=== PATIENT | female | born 1945 | race Two or more races ===

== ENCOUNTER 2020-10-21 07:56 | Outpatient (REF) | payer MEDICARE, SELFPAY | END 2020-10-21 07:57 | disposition home or self-care (01) | LOC: HO.LAB 07:56 | PROVIDERS: Visit Provider Internal Medicine | DX: Z20.822 Contact with and (suspected) exposure to COVID-19 (principal) | CPT/HCPCS: 36415; C9803; U0003; U0005 ==

== ENCOUNTER 2020-10-25 11:25 | Emergency (ER) | payer MEDICARE, SELFPAY ==
[2020-10-25 11:29] VITALS: BP 193/97; PULSE 67; RESP 20; TEMP 36.7; O2SAT 99; BMI 30.9
--- NOTE | 2020-10-25 11:30 | ED_ITS ---
HPI - Back Pain/Injury General Chief Complaint: Back Pain/Injury Stated Complaint: RIGHT LOWER BACK PAIN,NO INJURY Time Seen by Provider: 10/25/20 11:30 Source: patient Mode of arrival: EMS Limitations: no limitations History of Present Illness HPI Narrative: History of chronic back pain on Naprosyn, No recent injury. Says the pain started suddenly. Patient denies bowel or bladder MD elicited complaint: back pain Pertinent past history: prior back pain Onset (ago): minute(s) Timing: constant Severity: moderate Quality: sharp Location: lumbar spine Radiation: none Exacerbating factors: none Associated symptoms: denies other symptoms Related Data Previous Rx's Medication Instructions Recorded cyclobenzaprine 10 mg PO TID #10 tab 10/25/20 naproxen [Naprosyn] 500 mg PO BID #20 tab 10/25/20 Allergies Allergy/AdvReac Type Severity Reaction Status Date / Time aspirin [ASPIRIN] Allergy Unknown hives Unverified 04/28/20 15:20 Review of Systems Constitutional: Constitutional: Reports no additional constitutional complaints Eyes: Eyes: Reports no additional eye complaints ENT: Denies dizziness Cardiovascular: Cardiovascular: Reports no additional cardiovascular complaints Respiratory: Respiratory: Reports as per HPI Gastrointestinal: Gastrointestinal: Reports no additional gastrointestinal complaints Genitourinary: Genitourinary: Reports no additional female genitourinary complaints Musculoskeletal: Musculoskeletal: Reports no additional musculoskeletal complaints Integumentary/Breasts: Skin/Breast: Denies rash Neurologic: Reports system reviewed and no additional complaints, except as documented, Denies dizziness and Denies Sensory deficit (Neuro) Psychiatric: Psychiatric: Denies anxiety [facility] Past Medical History Medical History (Updated 10/25/20 @ 14:20 by Danny Mendiola MD) HTN (hypertension) Seizures Social History Social History Smoking Status: Unknown if ever smoked Smoked in Last 30 Days: No Use of substances other than those prescribed or required for medical reasons: No Advance Directives: No Advance Directives Information Provided: No Physical Exam Vital Signs: Vital Signs: Last Vital Signs Temp 98.0 F 10/25/20 11:29 Pulse 67 10/25/20 11:29 Resp 20 10/25/20 11:29 BP 193/97 H 10/25/20 11:29 Pulse Ox 99 10/25/20 11:29 Body Mass Index 30.9 Const: Other: elderly female in pain Nutritional Appearance: average body habitus Orientation/consciousness: oriented to person and patient oriented x3 Limitations: no limitations HENMT: Head: Yes normal to inspection Ears: external ears normal General nose exam: Normal external nose present Mouth: Normal oral and palatal mucosa present and oropharynx normal Throat: Yes posterior oropharynx normal Eyes: General: appearance normal, both eyes and all related structures Neck: Other: supple Neck: Yes normal visual inspection Chest: Chest palpation & inspection: normal inspection of the chest Resp: Auscultation: clear to auscultation bilaterally Cardio: Jugular venous distension: no JVD Rate: regular rate Rhythm: regular rhythm Heart sounds: S1 normal heart sound present and S2 normal heart sound present GI: Inspection: Yes normal to inspection Palpation (GI): Soft to palpation, nontender and No hepatosplenomegaly present Auscultation: normal bowel sounds Back/Spine/Pelvis: Other: right sided SI joint and sciatic notch pain Skin: General skin exam: no rashes or lesions noted Neuro: General: oriented to person and patient oriented x3 Cranial nerves: Yes CN's II-XII intact bilaterally Motor exam (neuro): 5/5 motor strength present throughout Sensory Exam: No Sensory deficit (Neuro) Extrem: General: Yes normal to inspection Psych: Appearance: grossly normal Course Course Course Narrative: Patient mostly improved will dc home on NSAIDs and flexeril Discharge Plan Discharge Clinical Impression: Lumbar radiculopathy Strain of lumbar region Qualifiers: Encounter type: initial encounter Qualified Code(s): S39.012A - Strain of muscle, fascia and tendon of lower back, initial encounter Sciatica Qualifiers: Laterality: left Qualified Code(s): M54.32 - Sciatica, left side Patient Disposition: Home, Self-Care Instructions: Sciatica (ED), Lumbar Radiculopathy (ED) Prescriptions: New cyclobenzaprine 10 mg tablet 10 mg PO TID Qty: 10 RF: 0 naproxen [Naprosyn] 500 mg tablet 500 mg PO BID Qty: 20 RF: 0 Referrals: Physician,Unknown [Primary Care Provider] - 2 days
[2020-10-25] MEDS: Ketorolac Tromethamine 60 MG/2 ML VIAL IM (11:42)
[2020-10-25] MEDS: LORazepam 2 MG/ML VIAL 1 MG IM (11:42)
== END 2020-10-25 14:51 | disposition home or self-care (01) ==
PROVIDERS: Emergency Provider Emergency Medicine
DX: S39.012A Strain of muscle, fascia and tendon of lower back, initial encounter (principal); M54.16 Radiculopathy, lumbar region; M54.32 Sciatica, left side; X58.XXXA Exposure to other specified factors, initial encounter; Y93.9 Activity, unspecified; Y92.9 Unspecified place or not applicable; Y99.9 Unspecified external cause status; Z79.899 Other long term (current) drug therapy
CPT/HCPCS: 96372; 99284; J1885; J2060

== ENCOUNTER 2021-02-22 09:21 | Emergency (ER) | payer MEDICARE, SELFPAY ==
--- NOTE | ~2021-02-22 | XR_ITS ---
EXAMINATION: XR CHEST CLINICAL INFORMATION: Dyspnea COMPARISON: Previous chest x-rays most recent September [address] of the abdomen and pelvis May 2020 TECHNIQUE: Frontal view of the chest was obtained. FINDINGS: The cardiac and mediastinal contours are stable. There is increased soft tissue in the right cardiophrenic angle that is unchanged. When compared with previous abdominal and pelvic CT scan, this corresponds to prominent epicardial fat. The lungs are clear. There is no pleural effusion or pneumothorax. There are degenerative changes of the spine and shoulder joints. There is a sclerotic lesion in the left proximal humeral shaft measuring 7 mm that is stable. XR/XR chest 1V IMPRESSION: No evidence for acute disease in the chest.
--- NOTE | 2021-02-22 09:31 | ECG_ITS ---
Test Reason : CHEST PAIN Blood Pressure : / mmHG Vent. Rate : 073 BPM Atrial Rate : 073 BPM P-R Int : 202 ms QRS Dur : 102 ms QT Int : 396 ms P-R-T Axes : 053 -01 070 degrees QTc Int : 436 ms Normal sinus rhythm Normal ECG When compared with ECG of 08-OCT-2019 12:17, No significant change was found Referred By: Danielle Olmedo Electronically Signed By:Maurizio Giang
--- NOTE | 2021-02-22 09:33 | ED.SOB ---
HPI - SOB/Dyspnea General Chief Complaint: Upper Respiratory Symptoms Stated Complaint: SOB W/CHEST TIGHTNESS Time Seen by Provider: 02/22/21 09:30 Source: patient, EMS and per diem interpreter Mode of arrival: EMS Limitations: no limitations History of Present Illness MD elicited complaint: cough and chest pain Onset (ago): day(s) (yesterday) Timing: constant Severity: moderate Exacerbating factors: movement and coughing Relieving factors: nothing Associated symptoms: chest pain, cough and other (headaches, stuffy nose, myalgias) Treatment prior to arrival: none Related Data Previous Rx's Medication Instructions Recorded cyclobenzaprine 10 mg PO TID #10 tab 10/25/20 naproxen [Naprosyn] 500 mg PO BID #20 tab 10/25/20 albuterol sulfate 2 puff INHALATION QID PRN #6.7 g 02/22/21 cefuroxime axetil 500 mg PO BID 7 Days #14 tab 02/22/21 hydrocodone-homatropine 5 ml PO Q6H PRN #60 ml 02/22/21 ondansetron 4 mg PO Q8H PRN #20 tab 02/22/21 Allergies Allergy/AdvReac Type Severity Reaction Status Date / Time aspirin [ASPIRIN] Allergy Unknown hives Unverified 04/28/20 15:20 Review of Systems Review of Systems: Constitutional : No Weight loss, No Fever, No Chills ENT/Mouth : No sore throat, pos Rhinorrhea Eyes: No Eye Pain, No Swelling Cardiovascular : pos Chest Pain, pos SOB, no Dyspnea on Exertion, No Orthopnea, No Edema, No Palpitations Respiratory : pos Cough, No Sputum Gastrointestinal : no Nausea, No Vomiting, No Diarrhea, No abdominal Pain, No Hematochezia, No Melena Genitourinary : No Dysuria, No Urinary Frequency Musculoskeletal : No joint pain, pos Myalgias, No Joint Swelling Skin : No Skin Lesions, No rash Neuro : No Weakness, No Numbness, No Dizziness, No Headache Psych : No Anxiety/Panic, No Depression Heme/Lymph: No Bruising, No Lymphadenopathy Endocrine : No Polyuria, No Polydipsia All other systems reviewed and are negative PMFSH Past Medical History Attestation statement: The following information was validated with the patient. Medical History HTN (hypertension) Seizures Social History Social History (Updated 02/22/21 @ 09:47 by Danielle Olmedo DO) Patient Tobacco Use Status: Never used Tobacco Use of substances other than those prescribed or required for medical reasons: No Advance Directives: Yes Advance Directives Information Provided: Yes Advance Directives on File: No Physical Exam Vital Signs: Vital Signs: Last Vital Signs Temp 97.7 F 02/22/21 10:48 Pulse 74 02/22/21 13:19 Resp 16 02/22/21 13:19 BP 139/69 02/22/21 13:19 Pulse Ox 95 02/22/21 13:19 Body Mass Index 31.8 Appearance: Alert. Oriented X3. No acute distress. Eyes: Pupils equal, round and reactive to light. ENT: Pharynx normal. Neck: Normal inspection. Neck supple. CVS: Normal heart rate and rhythm. Pulses normal. Respiratory: No respiratory distress. Breath sounds normal. dry persistent cough Abdomen: Soft and nontender. Skin: Skin warm and dry. Normal skin color. Normal skin turgor. Extremities: No lower extremity edema. No calf ttp Neuro: Oriented X 3. No motor deficit. No sensory deficit. Course Course Course Narrative: allergy to aspirin, feels better after anti tussive and neb repeat trop pending, ddimer under upper limits of normal repeat trop flat feels better will treat as bronchitis and DC home MDM - SOB/Dyspnea MDM Narrative Medical decision making narrative: 75 yo female with hx of HTN and seizures here with c/o cough since yesterday then chest pain worse since this AM around 7 made worse with coughing - c/o stuffy nose and overall not feeling well with mild headaches seems viral in nature and atypical for ACS will obtain basic labs, troponin x 2, CXR, give neb and start on robitussin AC dispo per results and findings Lab Data Result diagrams: 02/22/21 10:02 02/22/21 10:02 Labs: Lab Results 02/22/21 02/22/21 02/22/21 Range/Units 10:02 10:02 10:02 WBC 8.5 (4.8-10.8) X10*3/uL RBC 4.86 (4.20-5.50) X10*6/uL Hgb 13.0 (12.0-16.0) g/dl Hct 40.8 (37-47) % MCV 84.0 (80-98) fL MCH 26.7 L (27.0-33.0) pg MCHC 31.9 (31.0-35.0) g/dl RDW 15.3 (11.0-16.0) % Plt Count 270 (160-400) X10*3/uL MPV 9.9 (9.4-12.3) fL Immature Gran % (Auto) 0.2 (0.0-0.4) % Neut % (Auto) 70.5 (45-73) % Lymph % (Auto) 17.2 L (20-40) % [place] % (Auto) 10.9 (2-11) % Eos % (Auto) 0.7 (0-4) % Baso % (Auto) 0.5 (0-2) % Lymph # (Auto) 1.5 (1.2-4.9) X10*3/uL [place] # (Auto) 0.9 (0.1-1.2) X10*3/uL Eos # (Auto) 0.1 (0.0-0.4) X10*3/uL Baso # (Auto) 0.0 (0.0-0.2) X10*3/uL Abs Immat Gran (auto) 0.02 (0.00-0.03) X10*3/uL Absolute Neuts (auto) 6.0 (2.0-8.3) X10*3/uL Absolute Nucleated RBC 0.000 (0.0-0.012) X10*3/uL Nucleated RBC % (auto) 0.0 (0.0-0.2) /100WBC D-Dimer NG/ML Sodium 144 (135-145) mmol/L Potassium 3.9 (3.3-5.1) mmol/L Chloride 104 (96-108) mmol/L Carbon Dioxide 29 (22-29) mmol/L Anion Gap 15 (12-20) BUN 17 H (9-16) mg/dL Creatinine 0.99 (0.5-1.4) mg/dL Estim Creat Clear Calc 49.9 Estimated GFR 54 Random Glucose 95 (60-115) mg/dL Calcium 10.0 (8.4-10.2) mg/dL Magnesium 2.1 (1.6-2.6) mg/dL Total Bilirubin 0.7 (0.0-1.0) mg/dL Direct Bilirubin 0.2 (0.0-0.5) mg/dL AST 18 (5-31) U/L ALT 13 (0-31) U/L Alkaline Phosphatase 76 (39-117) U/L Troponin I High Sens 18.7 H* (<3.5-17.0) ng/L B-Natriuretic Peptide 15 (<100) pg/mL Total Protein 7.4 (6.5-8.0) g/dL Albumin 4.5 (3.5-5.0) g/dL Lipase 21 (8-78) U/L Urine Color Urine Appearance Urine pH (5.0-8.0) Ur Specific [place] (1.005-1.025) Urine Protein (NEG-TRACE) MG/DL Urine Glucose (UA) (NEG) MG/DL Urine Ketones (NEG) MG/DL Urine Blood (NEG) Urine Nitrite (NEG) Ur Leukocyte Esterase (NEG) Urine RBC (0) /HPF Urine WBC (0-4) /HPF Ur Squamous Epith Cells /LPF Amorphous Sediment /LPF Urine Bacteria /LPF COVID-19 (GAGE) (Negative) COVID-19 Clin Com 02/22/21 02/22/21 02/22/21 Range/Units 10:02 10:02 11:26 WBC (4.8-10.8) X10*3/uL RBC (4.20-5.50) X10*6/uL Hgb (12.0-16.0) g/dl Hct (37-47) % MCV (80-98) fL MCH (27.0-33.0) pg MCHC (31.0-35.0) g/dl RDW (11.0-16.0) % Plt Count (160-400) X10*3/uL MPV (9.4-12.3) fL Immature Gran % (Auto) (0.0-0.4) % Neut % (Auto) (45-73) % Lymph % (Auto) (20-40) % [place] % (Auto) (2-11) % Eos % (Auto) (0-4) % Baso % (Auto) (0-2) % Lymph # (Auto) (1.2-4.9) X10*3/uL [place] # (Auto) (0.1-1.2) X10*3/uL Eos # (Auto) (0.0-0.4) X10*3/uL Baso # (Auto) (0.0-0.2) X10*3/uL Abs Immat Gran (auto) (0.00-0.03) X10*3/uL Absolute Neuts (auto) (2.0-8.3) X10*3/uL Absolute Nucleated RBC (0.0-0.012) X10*3/uL Nucleated RBC % (auto) (0.0-0.2) /100WBC D-Dimer 223 NG/ML Sodium (135-145) mmol/L Potassium (3.3-5.1) mmol/L Chloride (96-108) mmol/L Carbon Dioxide (22-29) mmol/L Anion Gap (12-20) BUN (9-16) mg/dL Creatinine (0.5-1.4) mg/dL Estim Creat Clear Calc Estimated GFR Random Glucose (60-115) mg/dL Calcium (8.4-10.2) mg/dL Magnesium (1.6-2.6) mg/dL Total Bilirubin (0.0-1.0) mg/dL Direct Bilirubin (0.0-0.5) mg/dL AST (5-31) U/L ALT (0-31) U/L Alkaline Phosphatase (39-117) U/L Troponin I High Sens (<3.5-17.0) ng/L B-Natriuretic Peptide (<100) pg/mL Total Protein (6.5-8.0) g/dL Albumin (3.5-5.0) g/dL Lipase (8-78) U/L Urine Color YELLOW Urine Appearance HAZY Urine pH 6.5 (5.0-8.0) Ur Specific [place] <= 1.005 (1.005-1.025) Urine Protein NEG (NEG-TRACE) MG/DL Urine Glucose (UA) NEG (NEG) MG/DL Urine Ketones NEG (NEG) MG/DL Urine Blood NEG (NEG) Urine Nitrite POS H (NEG) Ur Leukocyte Esterase 1+ H (NEG) Urine RBC 0 (0) /HPF Urine WBC 1-4 (0-4) /HPF Ur Squamous Epith Cells TRACE /LPF Amorphous Sediment TRACE /LPF Urine Bacteria 3+ /LPF COVID-19 (GAGE) Negative (Negative) COVID-19 Clin Com See Note 02/22/21 Range/Units 12:39 WBC (4.8-10.8) X10*3/uL RBC (4.20-5.50) X10*6/uL Hgb (12.0-16.0) g/dl Hct (37-47) % MCV (80-98) fL MCH (27.0-33.0) pg MCHC (31.0-35.0) g/dl RDW (11.0-16.0) % Plt Count (160-400) X10*3/uL MPV (9.4-12.3) fL Immature Gran % (Auto) (0.0-0.4) % Neut % (Auto) (45-73) % Lymph % (Auto) (20-40) % [place] % (Auto) (2-11) % Eos % (Auto) (0-4) % Baso % (Auto) (0-2) % Lymph # (Auto) (1.2-4.9) X10*3/uL [place] # (Auto) (0.1-1.2) X10*3/uL Eos # (Auto) (0.0-0.4) X10*3/uL Baso # (Auto) (0.0-0.2) X10*3/uL Abs Immat Gran (auto) (0.00-0.03) X10*3/uL Absolute Neuts (auto) (2.0-8.3) X10*3/uL Absolute Nucleated RBC (0.0-0.012) X10*3/uL Nucleated RBC % (auto) (0.0-0.2) /100WBC D-Dimer NG/ML Sodium (135-145) mmol/L Potassium (3.3-5.1) mmol/L Chloride (96-108) mmol/L Carbon Dioxide (22-29) mmol/L Anion Gap (12-20) BUN (9-16) mg/dL Creatinine (0.5-1.4) mg/dL Estim Creat Clear Calc Estimated GFR Random Glucose (60-115) mg/dL Calcium (8.4-10.2) mg/dL Magnesium (1.6-2.6) mg/dL Total Bilirubin (0.0-1.0) mg/dL Direct Bilirubin (0.0-0.5) mg/dL AST (5-31) U/L ALT (0-31) U/L Alkaline Phosphatase (39-117) U/L Troponin I High Sens 11.4 (<3.5-17.0) ng/L B-Natriuretic Peptide (<100) pg/mL Total Protein (6.5-8.0) g/dL Albumin (3.5-5.0) g/dL Lipase (8-78) U/L Urine Color Urine Appearance Urine pH (5.0-8.0) Ur Specific [place] (1.005-1.025) Urine Protein (NEG-TRACE) MG/DL Urine Glucose (UA) (NEG) MG/DL Urine Ketones (NEG) MG/DL Urine Blood (NEG) Urine Nitrite (NEG) Ur Leukocyte Esterase (NEG) Urine RBC (0) /HPF Urine WBC (0-4) /HPF Ur Squamous Epith Cells /LPF Amorphous Sediment /LPF Urine Bacteria /LPF COVID-19 (GAGE) (Negative) COVID-19 Clin Com ECG Data Attestation: I personally reviewed and interpreted this ECG as follows: ECG interpretation date: 02/22/21 ECG interpretation time: 09:57 Interpretation: Rate: 73 Rhythm: NSR with 1st degree AVB [place]: .eft Normal P waves. Normal ANKUR. Normal QRS complex. ST T wave : normal no LALITHA qTC: normal prior studies: no acute ischemia The study has been interpreted contemporaneously by me. . Discharge Plan Discharge Clinical Impression: Acute UTI, Cough Chest pain Qualifiers: Chest pain type: unspecified Qualified Code(s): R07.9 - Chest pain, unspecified Patient Disposition: Home, Self-Care Instructions: Chest Pain (ED), Urinary Tract Infection in Women (ED), Acute Bronchitis (ED) Additional Instructions: return to ED for any worsening symptoms or concerns Prescriptions: New albuterol sulfate 90 mcg/actuation HFA aerosol inhaler 2 puff inhalation QID PRN (Reason: shortness of breath or wheezing) Qty: 6.7 RF: 0 ondansetron 4 mg tablet,disintegrating 4 mg PO Q8H PRN (Reason: nausea and vomiting) Qty: 20 RF: 0 hydrocodone-homatropine 5-1.5 mg/5 mL (5 mL) syrup 5 ml PO Q6H PRN (Reason: cough) Qty: 60 RF: 0 cefuroxime axetil 500 mg tablet 500 mg PO BID 7 Days Qty: 14 RF: 0 No Action cyclobenzaprine 10 mg tablet 10 mg PO TID Qty: 10 RF: 0 naproxen [Naprosyn] 500 mg tablet 500 mg PO BID Qty: 20 RF: 0 Referrals: Mckayla Salazar MD [Primary Care Provider] - 2 days (if not better) Print Language: Togolese
[2021-02-22 09:39] VITALS: BP 170/85; PULSE 77; RESP 18; TEMP 36.6; O2SAT 97; BMI 31.8
[2021-02-22] MEDS: Albuterol Sulfate (0.083%) 2.5 MG/3 ML VIAL.NEB INHALE (09:40)
[2021-02-22 09:53] VITALS: PULSE 81; O2SAT 97
[2021-02-22] MEDS: guaiFEN/Codeine SF 200/20/10ML 10 ML LIQUID 5 ML PO (10:02)
[2021-02-22 10:12] LABS: MANUAL DIFF FLAG NO
[2021-02-22 10:14] LABS: Basophils Percent Auto 0.5 % (0-2); Eosinophils Absolute Auto 0.1 X10*3/uL (0.0-0.4); Eosinophils Percent Auto 0.7 % (0-4); Hematocrit 40.8 % (37-47); Imm Gran Abs Auto 0.02 X10*3/uL (0.00-0.03); Imm Gran Pct Auto 0.2 % (0.0-0.4); Lymphocytes Absolute Auto 1.5 X10*3/uL (1.2-4.9); Lymphocytes Percent Auto 17.2 % (20-40); Mean Corpuscular HGB Conc 31.9 g/dl (31.0-35.0); Mean Corpuscular Hemoglobin 26.7 pg (27.0-33.0); Mean Platelet Volume 9.9 fL (9.4-12.3); Monocytes Absolute Auto 0.9 X10*3/uL (0.1-1.2); Monocytes Percent Auto 10.9 % (2-11); Neutrophils Percent Auto 70.5 % (45-73); Platelet Count 270 X10*3/uL (160-400); Red Blood Count 4.86 X10*6/uL (4.20-5.50); Red Cell Distribution Width 15.3 % (11.0-16.0); White Blood Count 8.5 X10*3/uL (4.8-10.8)
[2021-02-22 10:16] LABS: Glucose Urine UA NEG (NEG); Leukocyte Esterase Urine 1+ (NEG); Nitrite Urine POS (NEG); PH 6.5 (5.0-8.0); Specific Gravity - Urine <= 1.005 (1.005-1.025); Urine Blood NEG (NEG); Urine Ketones NEG (NEG); Urine Protein NEG (NEG-TRACE)
[2021-02-22 10:17] LABS: Appearance Urine HAZY; Color Urine YELLOW
[2021-02-22 10:25] LABS: Bacteria Urine 3+ /LPF; RBC Urine 0 /HPF (0); Squamous Epithelial Cell Urine TRACE /LPF
[2021-02-22 10:26] LABS: Amorphous Sediment Urine TRACE /LPF
[2021-02-22 10:37] LABS: Alanine Aminotransferase 13 U/L (0-31); Albumin Level 4.5 g/dL (3.5-5.0); Alkaline Phosphatase 76 U/L (39-117); Anion Gap 15 (12-20); Aspartate Amino Transferase 18 U/L (5-31); Bilirubin Direct 0.2 mg/dL (0.0-0.5); Bilirubin Total 0.7 mg/dL (0.0-1.0); Blood Urea Nitrogen 17 mg/dL (9-16); COVID-19 Test Negative (Negative); Carbon Dioxide 29 mmol/L (22-29); Chloride 104 mmol/L (96-108); Creatinine Clr Calc Pharmacy 49.9; Estimated Glomerular Filt Rate 54; Glucose Random 95 mg/dL (60-115); IDNOW Serial# 9DD0AD1C; Lipase 21 U/L (8-78); Magnesium 2.1 mg/dL (1.6-2.6); Potassium 3.9 mmol/L (3.3-5.1); Sodium 144 mmol/L (135-145); Total Protein 7.4 g/dL (6.5-8.0)
[2021-02-22 10:46] LABS: B Type Natriuretic Peptide 15 pg/mL (<100); Troponin-I High Sensitivity 18.7 ng/L (<3.5-17.0)
[2021-02-22 10:48] VITALS: BP 136/67; PULSE 85; RESP 15; TEMP 36.5; O2SAT 98
[2021-02-22] MEDS: Acetaminophen 325 MG TABLET 650 MG PO (11:14)
[2021-02-22] MEDS: cefTRIAXone sodium 1 GM in 0.9 % Sodium Chloride 50 ML IV (11:14)
[2021-02-22 11:27] VITALS: BP 125/70; PULSE 75; RESP 16; O2SAT 99
[2021-02-22 11:28] VITALS: O2SAT 97
[2021-02-22 11:46] LABS: D Dimer 223 NG/ML
[2021-02-22 13:19] VITALS: BP 139/69; PULSE 74; RESP 16; O2SAT 95
[2021-02-22 13:35] LABS: Troponin-I High Sensitivity 11.4 ng/L (<3.5-17.0)
== END 2021-02-22 14:51 | disposition home or self-care (01) ==
PROVIDERS: Emergency Provider Emergency Medicine; PCP Student in an Organized Health Care Education/Training Program
DX: R06.02 Shortness of breath (principal); R05 Cough; R51.9 Headache, unspecified; M79.10 Myalgia, unspecified site; Z79.899 Other long term (current) drug therapy; Z20.822 Contact with and (suspected) exposure to COVID-19
CPT/HCPCS: 36415; 71045; 80048; 80076; 81001; 83690; 83735; 83880; 84484; 85025; 85379; 87635; 93005; 94640; 96365; 96375; 99285; J0696

== ENCOUNTER 2021-09-22 13:06 | Emergency (ER) | payer MEDICARE, SELFPAY ==
--- NOTE | ~2021-09-22 | CT_ITS ---
EXAMINATION: CT ABDOMEN AND PELVIS WITHOUT CONTRAST CLINICAL INFORMATION: Abdominal pain COMPARISON: Previous CT of the abdomen and pelvis May 2016 TECHNIQUE: Multidetector volumetric imaging was performed from the superior aspect of the liver through the pubic symphysis. Sagittal and coronal reformatted images were obtained on the technologist's workstation. This CT examination was performed using dose optimization techniques as appropriate, variously including the following: *Automated exposure control *Adjustment of mA and/or kV according to patient size (this includes techniques or standardized protocols for targeted exams where dose is matched to indication/reason for exam; i.e. extremities or head) *Use of iterative reconstruction technique DLP: 6 02 mGy-cm FINDINGS: LUNG BASES: The visualized lung bases are unremarkable. LIVER, GALLBLADDER, AND BILIARY TREE: The liver is normal in size, shape, and attenuation. No focal hepatic lesion or biliary ductal dilatation is present. The gallbladder is unremarkable with no evidence of radiopaque gallstones, gallbladder wall thickening, or obvious pericholecystic inflammatory changes. PANCREAS: Unremarkable. SPLEEN: Unremarkable. ADRENAL GLANDS: Unremarkable. KIDNEYS AND URETERS: There are small nonobstructing stones in the upper pole the left kidney measuring 2 mm. There is a 5 mm fatty lesion in the lower pole the left kidney probably representing a benign angiomyolipoma. There is a 1.5 cm low-attenuation lesion in the upper pole of the right kidney probably representing a cyst. There is fullness of both renal collecting systems. No hydronephrosis is seen. The ureters do not appear dilated. No ureteral stone is seen. BLADDER: Unremarkable. GASTROINTESTINAL TRACT: There is stool throughout the colon suggestive of constipation. Small and large bowel is otherwise unremarkable. The appendix is unremarkable. ABDOMINAL WALL: There is diastasis of the rectus muscles. No hernia is seen. LYMPH NODES: Normal. VASCULAR: There is evidence of atherosclerotic disease. No aneurysm is seen. PELVIC VISCERA: Unremarkable. OSSEOUS STRUCTURES: There is curvature of the lumbar spine to the right. Degenerative changes of the spine and hip joints. CT/CT abdomen pelvis wo con IMPRESSION: Stool throughout the colon suggestive of constipation. Small nonobstructing left renal stones. Right renal cyst. Subcentimeter fatty lesion in the lower pole the left kidney probably representing a benign angiomyolipoma. Fleischner guidelines were followed.
--- NOTE | ~2021-09-22 | CT_ITS ---
EXAMINATION: CT HEAD WITHOUT CONTRAST CLINICAL INFORMATION: Headache and dizziness COMPARISON: Previous head CT most recent September 2019 TECHNIQUE: Contiguous axial imaging was performed from the skull base to vertex without intravenous administration of contrast. This CT examination was performed using dose optimization techniques as appropriate, variously including the following: *Automated exposure control *Adjustment of mA and/or kV according to patient size (this includes techniques or standardized protocols for targeted exams where dose is matched to indication/reason for exam; i.e. extremities or head) *Use of iterative reconstruction technique DLP: 643 mGy-cm FINDINGS: There is no evidence of an extra-axial collection. There is no evidence of intra-axial or extra-axial hemorrhage. The ventricles and extra-axial CSF spaces are appropriate. Rdz-white matter differentiation is normal. There is a 1.3 cm calcified or ossified extra-axial lesion adjacent to the right frontal lobe suggestive of a meningioma that is stable. No other mass, mass effect or infarct is seen. No skull fracture is seen. Visualized paranasal sinuses, mastoid air cells and middle ears are clear. CT/CT head/brain wo con IMPRESSION: No acute findings. 1.3 cm meningioma adjacent to the right frontal lobe similar to previous exams.
--- NOTE | 2021-09-22 13:45 | ECG_ITS ---
Test Reason : DIZZINESS Blood Pressure : / mmHG Vent. Rate : 080 BPM Atrial Rate : 080 BPM P-R Int : 190 ms QRS Dur : 094 ms QT Int : 398 ms P-R-T Axes : 029 -20 049 degrees QTc Int : 459 ms Normal sinus rhythm Inferior infarct , age undetermined Cannot rule out Anterior infarct , age undetermined Abnormal ECG When compared with ECG of 22-FEB-2021 09:39, Inferior infarct is now Present Referred By: Connie Gregorio Electronically Signed By:Maurizio Giang
--- NOTE | 2021-09-22 13:51 | ED_ITS ---
HPI - Dizziness General Chief Complaint: Dizziness <Connie Gregorio MD - Last Filed: 09/22/21 15:20> Stated Complaint: weakness <Connie Gregorio MD - Last Filed: 09/22/21 15:20> Time Seen by Provider: 09/22/21 13:44 <Connie Gregorio MD - Last Filed: 09/22/21 15:20> History of Present Illness HPI Narrative: Patient is 76-year-old female presents today with having dizziness. Feels lightheaded feels weak. Patient denies any focal weakness. Has a history of seizure baseline is on Keppra. No pain on urination. Positive abdominal pain. Mainly over the epigastric area no chest pain no shortness of breath no diaphoresis feels very weak. Not a spinning sensation. No nausea no vomiting. No other changes in medication. Positive generalized malaise. <Connie Gregorio MD - Last Filed: 09/22/21 15:20> Related Data Home Medications: Previous Rx's Medication Instructions Recorded cyclobenzaprine 10 mg tablet 10 mg PO TID #10 tab 10/25/20 naproxen 500 mg tablet (Naprosyn) 500 mg PO BID #20 tab 10/25/20 albuterol sulfate 90 mcg/actuation 2 puff INHALATION QID PRN #6.7 g 02/22/21 aerosol inhaler cefuroxime axetil 500 mg tablet 500 mg PO BID 7 Days #14 tab 02/22/21 hydrocodone-homatropine 5 mg-1.5 5 ml PO Q6H PRN #60 ml 02/22/21 mg/5 mL (5 mL) oral syrup ondansetron 4 mg disintegrating 4 mg PO Q8H PRN #20 tab 02/22/21 tablet cefpodoxime 100 mg tablet 100 mg PO BID #14 tab 09/22/21 <Connie Gregorio MD - Last Filed: 09/22/21 15:20> Allergies/Adverse Reactions: Allergies Allergy/AdvReac Type Severity Reaction Status Date / Time aspirin [ASPIRIN] Allergy Unknown hives Unverified 04/28/20 15:20 <Connie Gregorio MD - Last Filed: 09/22/21 15:20> Review of Systems Review of Systems: Positive weakness generalized malaise Positive lightheaded Positive abdominal pain No nausea no vomiting no diarrhea Normal bowel movement No coughing no congestion or upper respiratory symptoms No chest pain <Connie Gregorio MD - Last Filed: 09/22/21 15:20> Yes all other systems are reviewed and are negative <Connie Gregorio MD - Last Filed: 09/22/21 15:20> [facility] Past Medical History Medical History: Medical History HTN (hypertension) Seizures <Connie Gregorio MD - Last Filed: 09/22/21 15:20> Social History Social History: Social History (Updated 02/22/21 @ 09:47 by Danielle Olmedo DO) Patient Tobacco Use Status: Never used Tobacco Advance Directives: Yes Advance Directives Information Provided: Yes Advance Directives on File: No <Connie Gregorio MD - Last Filed: 09/22/21 15:20> Physical Exam Vital Signs: Vital Signs: Last Vital Signs Temp 97.6 F 09/22/21 15:06 Pulse 84 09/22/21 15:06 Resp 14 09/22/21 15:06 BP 164/79 H 09/22/21 15:06 Pulse Ox 98 09/22/21 15:06 BMI result Body Mass Index 29.1 Appearance: Alert. Oriented X3. No acute distress. Eyes: Pupils equal, round and reactive to light. ENT: Pharynx normal. Neck: Normal inspection. Neck supple. No lymph nodes noted. No crepitus CVS: Normal heart rate and rhythm. Pulses normal. Normal S1 and S2 Respiratory: No respiratory distress. Breath sounds normal. No Wheezing. No rales Abdomen: Soft and nontender. No rigidity. No distention. good BS x4 Skin: Skin warm and dry. Normal skin color. Normal skin turgor. Extremities: No lower extremity edema. Neurovascular intact to all extremities. No Lacerations. No Rash Neuro: Oriented X 3. No motor deficit. No sensory deficit. Moving all extermities. No slurred speech <Connie Gregorio MD - Last Filed: 09/22/21 15:20> Vital Signs: Last Vital Signs Temp 97.6 F 09/22/21 15:06 Pulse 84 09/22/21 15:06 Resp 14 09/22/21 15:06 BP 164/79 H 09/22/21 15:06 Pulse Ox 98 09/22/21 15:06 BMI result Body Mass Index 29.1 <Daniel Macias MD - Last Filed: 09/22/21 18:57> Course Reevaluation(s) Reevaluation #1: UA showed positive for nitrites with 3+ bacteria patient had similar symptoms 03/01 when she had UTI and treated with Ceftin got better likely patient has UTI although patient has no symptoms will discharge patient home on cefpodoxime <Daniel Macias MD - Last Filed: 09/22/21 18:57> Time: 18:56 <Daniel Macias MD - Last Filed: 09/22/21 18:57> MDM - Dizziness MDM Narrative Medical decision making narrative: Patient's EKG showed a sinus pattern heart rate is 80 GA QRS QT within normal limits is no acute ST segment elevation noted. This is unchanged from previous. Her troponin was 25. Will get a 2nd set of cardiac enzyme. CT scan of the head was grossly unchanged. Neurologically grossly intact. Urine showed no signs of infection. <Connie Gregorio MD - Last Filed: 09/22/21 15:20> Patient's EKG showed a sinus pattern heart rate is 80 GA QRS QT within normal limits is no acute ST segment elevation noted. This is unchanged from previous. Her troponin was 25. Will get a 2nd set of cardiac enzyme. CT scan of the head was grossly unchanged. Neurologically grossly intact. Urine showed no signs of infection. <Daniel Macias MD - Last Filed: 09/22/21 18:57> Lab Data Result diagrams: : 09/22/21 14:30 09/22/21 14:30 <Connie Gregorio MD - Last Filed: 09/22/21 15:20> Labs: Lab Results 09/22/21 09/22/21 09/22/21 Range/Units 14:30 14:30 14:30 WBC 9.8 (4.8-10.8) X10*3/uL RBC 4.91 (4.20-5.50) X10*6/uL Hgb 13.1 (12.0-16.0) g/dl Hct 40.5 (37.0-47.0) % MCV 82.5 (80.0-98.0) fL MCH 26.7 L (27.0-33.0) pg MCHC 32.3 (31.0-35.0) g/dl RDW 15.1 (11.0-16.0) % Plt Count 242 (160-400) X10*3/uL MPV 10.2 (9.4-12.3) fL Immature Gran % (Auto) 1.1 H (0.0-0.4) % Neut % (Auto) 85.6 H (45-73) % Lymph % (Auto) 9.1 L (20-40) % [place] % (Auto) 3.7 (2-11) % Eos % (Auto) 0.2 (0-4) % Baso % (Auto) 0.3 (0-2) % Lymph # (Auto) 0.9 L (1.2-4.9) X10*3/uL [place] # (Auto) 0.4 (0.1-1.2) X10*3/uL Eos # (Auto) 0.0 (0.0-0.4) X10*3/uL Baso # (Auto) 0.0 (0.0-0.2) X10*3/uL Abs Immat Gran (auto) 0.11 H (0.00-0.03) X10*3/uL Absolute Neuts (auto) 8.4 H (2.0-8.3) x10*3/uL Absolute Nucleated RBC 0.000 (0.0-0.012) X10*3/uL Nucleated RBC % (auto) 0.0 (0.0-0.2) /100WBC Sodium 144 (135-145) mmol/L Potassium 3.3 (3.3-5.1) mmol/L Chloride 107 (96-108) mmol/L Carbon Dioxide 26 (22-29) mmol/L Anion Gap 14 (12-20) BUN 13 (9-16) mg/dL Creatinine 0.85 (0.5-1.4) mg/dL Estim Creat Clear Calc 52.7 Estimated GFR > 60 Random Glucose 104 (60-115) mg/dL Calcium 9.9 (8.4-10.2) mg/dL Magnesium 2.3 (1.6-2.6) mg/dL Total Bilirubin 0.5 (0.0-1.0) mg/dL Direct Bilirubin 0.2 (0.0-0.5) mg/dL AST 19 (5-31) U/L ALT 8 (0-31) U/L Alkaline Phosphatase 68 (39-117) U/L Troponin I High Sens 25.1 H (<3.5-17.0) ng/L Total Protein 7.6 (6.5-8.0) g/dL Albumin 4.6 (3.5-5.0) g/dL Lipase 29 (8-78) U/L Urine Color Urine Appearance Urine pH (5.0-8.0) Ur Specific [place] (1.005-1.025) Urine Protein (NEG-TRACE) MG/DL Urine Glucose (UA) (NEG) MG/DL Urine Ketones (NEG) MG/DL Urine Blood (NEG) Urine Nitrite (NEG) Ur Leukocyte Esterase (NEG) Urine RBC (0) /HPF Urine WBC (0-4) /HPF Ur Squamous Epith Cells /LPF Urine Bacteria /LPF 09/22/21 09/22/21 Range/Units 14:58 17:46 WBC (4.8-10.8) X10*3/uL RBC (4.20-5.50) X10*6/uL Hgb (12.0-16.0) g/dl Hct (37.0-47.0) % MCV (80.0-98.0) fL MCH (27.0-33.0) pg MCHC (31.0-35.0) g/dl RDW (11.0-16.0) % Plt Count (160-400) X10*3/uL MPV (9.4-12.3) fL Immature Gran % (Auto) (0.0-0.4) % Neut % (Auto) (45-73) % Lymph % (Auto) (20-40) % [place] % (Auto) (2-11) % Eos % (Auto) (0-4) % Baso % (Auto) (0-2) % Lymph # (Auto) (1.2-4.9) X10*3/uL [place] # (Auto) (0.1-1.2) X10*3/uL Eos # (Auto) (0.0-0.4) X10*3/uL Baso # (Auto) (0.0-0.2) X10*3/uL Abs Immat Gran (auto) (0.00-0.03) X10*3/uL Absolute Neuts (auto) (2.0-8.3) x10*3/uL Absolute Nucleated RBC (0.0-0.012) X10*3/uL Nucleated RBC % (auto) (0.0-0.2) /100WBC Sodium (135-145) mmol/L Potassium (3.3-5.1) mmol/L Chloride (96-108) mmol/L Carbon Dioxide (22-29) mmol/L Anion Gap (12-20) BUN (9-16) mg/dL Creatinine (0.5-1.4) mg/dL Estim Creat Clear Calc Estimated GFR Random Glucose (60-115) mg/dL Calcium (8.4-10.2) mg/dL Magnesium (1.6-2.6) mg/dL Total Bilirubin (0.0-1.0) mg/dL Direct Bilirubin (0.0-0.5) mg/dL AST (5-31) U/L ALT (0-31) U/L Alkaline Phosphatase (39-117) U/L Troponin I High Sens 26.5 H (<3.5-17.0) ng/L Total Protein (6.5-8.0) g/dL Albumin (3.5-5.0) g/dL Lipase (8-78) U/L Urine Color YELLOW Urine Appearance HAZY Urine pH 8.0 (5.0-8.0) Ur Specific [place] 1.015 (1.005-1.025) Urine Protein TRACE (NEG-TRACE) MG/DL Urine Glucose (UA) NEG (NEG) MG/DL Urine Ketones NEG (NEG) MG/DL Urine Blood NEG (NEG) Urine Nitrite POS H (NEG) Ur Leukocyte Esterase NEG (NEG) Urine RBC 0 (0) /HPF Urine WBC 0-2 (0-4) /HPF Ur Squamous Epith Cells 1+ /LPF Urine Bacteria 3+ /LPF <Connie Gregorio MD - Last Filed: 09/22/21 15:20> Lab Results 09/22/21 09/22/21 09/22/21 Range/Units 14:30 14:30 14:30 WBC 9.8 (4.8-10.8) X10*3/uL RBC 4.91 (4.20-5.50) X10*6/uL Hgb 13.1 (12.0-16.0) g/dl Hct 40.5 (37.0-47.0) % MCV 82.5 (80.0-98.0) fL MCH 26.7 L (27.0-33.0) pg MCHC 32.3 (31.0-35.0) g/dl RDW 15.1 (11.0-16.0) % Plt Count 242 (160-400) X10*3/uL MPV 10.2 (9.4-12.3) fL Immature Gran % (Auto) 1.1 H (0.0-0.4) % Neut % (Auto) 85.6 H (45-73) % Lymph % (Auto) 9.1 L (20-40) % [place] % (Auto) 3.7 (2-11) % Eos % (Auto) 0.2 (0-4) % Baso % (Auto) 0.3 (0-2) % Lymph # (Auto) 0.9 L (1.2-4.9) X10*3/uL [place] # (Auto) 0.4 (0.1-1.2) X10*3/uL Eos # (Auto) 0.0 (0.0-0.4) X10*3/uL Baso # (Auto) 0.0 (0.0-0.2) X10*3/uL Abs Immat Gran (auto) 0.11 H (0.00-0.03) X10*3/uL Absolute Neuts (auto) 8.4 H (2.0-8.3) x10*3/uL Absolute Nucleated RBC 0.000 (0.0-0.012) X10*3/uL Nucleated RBC % (auto) 0.0 (0.0-0.2) /100WBC Sodium 144 (135-145) mmol/L Potassium 3.3 (3.3-5.1) mmol/L Chloride 107 (96-108) mmol/L Carbon Dioxide 26 (22-29) mmol/L Anion Gap 14 (12-20) BUN 13 (9-16) mg/dL Creatinine 0.85 (0.5-1.4) mg/dL Estim Creat Clear Calc 52.7 Estimated GFR > 60 Random Glucose 104 (60-115) mg/dL Calcium 9.9 (8.4-10.2) mg/dL Magnesium 2.3 (1.6-2.6) mg/dL Total Bilirubin 0.5 (0.0-1.0) mg/dL Direct Bilirubin 0.2 (0.0-0.5) mg/dL AST 19 (5-31) U/L ALT 8 (0-31) U/L Alkaline Phosphatase 68 (39-117) U/L Troponin I High Sens 25.1 H (<3.5-17.0) ng/L Total Protein 7.6 (6.5-8.0) g/dL Albumin 4.6 (3.5-5.0) g/dL Lipase 29 (8-78) U/L Urine Color Urine Appearance Urine pH (5.0-8.0) Ur Specific [place] (1.005-1.025) Urine Protein (NEG-TRACE) MG/DL Urine Glucose (UA) (NEG) MG/DL Urine Ketones (NEG) MG/DL Urine Blood (NEG) Urine Nitrite (NEG) Ur Leukocyte Esterase (NEG) Urine RBC (0) /HPF Urine WBC (0-4) /HPF Ur Squamous Epith Cells /LPF Urine Bacteria /LPF 09/22/21 09/22/21 Range/Units 14:58 17:46 WBC (4.8-10.8) X10*3/uL RBC (4.20-5.50) X10*6/uL Hgb (12.0-16.0) g/dl Hct (37.0-47.0) % MCV (80.0-98.0) fL MCH (27.0-33.0) pg MCHC (31.0-35.0) g/dl RDW (11.0-16.0) % Plt Count (160-400) X10*3/uL MPV (9.4-12.3) fL Immature Gran % (Auto) (0.0-0.4) % Neut % (Auto) (45-73) % Lymph % (Auto) (20-40) % [place] % (Auto) (2-11) % Eos % (Auto) (0-4) % Baso % (Auto) (0-2) % Lymph # (Auto) (1.2-4.9) X10*3/uL [place] # (Auto) (0.1-1.2) X10*3/uL Eos # (Auto) (0.0-0.4) X10*3/uL Baso # (Auto) (0.0-0.2) X10*3/uL Abs Immat Gran (auto) (0.00-0.03) X10*3/uL Absolute Neuts (auto) (2.0-8.3) x10*3/uL Absolute Nucleated RBC (0.0-0.012) X10*3/uL Nucleated RBC % (auto) (0.0-0.2) /100WBC Sodium (135-145) mmol/L Potassium (3.3-5.1) mmol/L Chloride (96-108) mmol/L Carbon Dioxide (22-29) mmol/L Anion Gap (12-20) BUN (9-16) mg/dL Creatinine (0.5-1.4) mg/dL Estim Creat Clear Calc Estimated GFR Random Glucose (60-115) mg/dL Calcium (8.4-10.2) mg/dL Magnesium (1.6-2.6) mg/dL Total Bilirubin (0.0-1.0) mg/dL Direct Bilirubin (0.0-0.5) mg/dL AST (5-31) U/L ALT (0-31) U/L Alkaline Phosphatase (39-117) U/L Troponin I High Sens 26.5 H (<3.5-17.0) ng/L Total Protein (6.5-8.0) g/dL Albumin (3.5-5.0) g/dL Lipase (8-78) U/L Urine Color YELLOW Urine Appearance HAZY Urine pH 8.0 (5.0-8.0) Ur Specific [place] 1.015 (1.005-1.025) Urine Protein TRACE (NEG-TRACE) MG/DL Urine Glucose (UA) NEG (NEG) MG/DL Urine Ketones NEG (NEG) MG/DL Urine Blood NEG (NEG) Urine Nitrite POS H (NEG) Ur Leukocyte Esterase NEG (NEG) Urine RBC 0 (0) /HPF Urine WBC 0-2 (0-4) /HPF Ur Squamous Epith Cells 1+ /LPF Urine Bacteria 3+ /LPF <Daniel Macias MD - Last Filed: 09/22/21 18:57> Discharge Plan Discharge Clinical Impression: UTI (urinary tract infection), Dizziness <Connie Gregorio MD - Last Filed: 09/22/21 15:20> Patient Disposition: Home, Self-Care <Connie Gregorio MD - Last Filed: 09/22/21 15:20> Instructions: Urinary Tract Infection in Women (DC), Dizziness (ED) <Connie Gregorio MD - Last Filed: 09/22/21 15:20> Additional Instructions: You have slight urine tract infection drink plenty of fluids take antibiotic as prescribed report to the ER vomiting fever not feeling good <Connie Gregorio MD - Last Filed: 09/22/21 15:20> Prescriptions: New cefpodoxime 100 mg tablet 100 mg PO BID Qty: 14 0RF Rx Instructions: must administer with a meal/food No Action albuterol sulfate 90 mcg/actuation HFA aerosol inhaler 2 puff inhalation QID PRN (Reason: shortness of breath or wheezing) Qty: 6.7 0RF ondansetron 4 mg tablet,disintegrating 4 mg PO Q8H PRN (Reason: nausea and vomiting) Qty: 20 0RF hydrocodone-homatropine 5-1.5 mg/5 mL (5 mL) syrup 5 ml PO Q6H PRN (Reason: cough) Qty: 60 0RF cefuroxime axetil 500 mg tablet 500 mg PO BID 7 Days Qty: 14 0RF cyclobenzaprine 10 mg tablet 10 mg PO TID Qty: 10 0RF naproxen [Naprosyn] 500 mg tablet 500 mg PO BID Qty: 20 0RF <Connie Gregorio MD - Last Filed: 09/22/21 15:20>
[2021-09-22 13:53] VITALS: BP 151/89; BP 170/80; PULSE 88; PULSE 92; TEMP 36.8; O2SAT 98; O2SAT 99; BMI 29.1
[2021-09-22 14:36] VITALS: BP 158/94; PULSE 82; RESP 18; TEMP 37; O2SAT 95
[2021-09-22 14:37] LABS: MANUAL DIFF FLAG NO
[2021-09-22] MEDS: Meclizine HCl 25 MG TABLET PO (14:41)
[2021-09-22] MEDS: ondansetron HCL 4 MG/2 ML VIAL IVPUSH (14:41)
[2021-09-22 14:42] LABS: Basophils Percent Auto 0.3 % (0-2); Eosinophils Percent Auto 0.2 % (0-4); Hematocrit 40.5 % (37.0-47.0); Hemoglobin 13.1 g/dl (12.0-16.0); Imm Gran Abs Auto 0.11 X10*3/uL (0.00-0.03); Imm Gran Pct Auto 1.1 % (0.0-0.4); Lymphocytes Absolute Auto 0.9 X10*3/uL (1.2-4.9); Lymphocytes Percent Auto 9.1 % (20-40); Mean Corpuscular HGB Conc 32.3 g/dl (31.0-35.0); Mean Corpuscular Hemoglobin 26.7 pg (27.0-33.0); Mean Corpuscular Volume 82.5 fL (80.0-98.0); Mean Platelet Volume 10.2 fL (9.4-12.3); Monocytes Absolute Auto 0.4 X10*3/uL (0.1-1.2); Monocytes Percent Auto 3.7 % (2-11); Neutrophils Absolute Auto 8.4 x10*3/uL (2.0-8.3); Neutrophils Percent Auto 85.6 % (45-73); Platelet Count 242 X10*3/uL (160-400); Red Blood Count 4.91 X10*6/uL (4.20-5.50); Red Cell Distribution Width 15.1 % (11.0-16.0); White Blood Count 9.8 X10*3/uL (4.8-10.8)
[2021-09-22] MEDS: 0.9 % Sodium Chloride 500 ML 999 ML IV (14:42)
[2021-09-22 14:58] LABS: Alanine Aminotransferase 8 U/L (0-31); Albumin Level 4.6 g/dL (3.5-5.0); Alkaline Phosphatase 68 U/L (39-117); Anion Gap 14 (12-20); Aspartate Amino Transferase 19 U/L (5-31); Bilirubin Direct 0.2 mg/dL (0.0-0.5); Bilirubin Total 0.5 mg/dL (0.0-1.0); Blood Urea Nitrogen 13 mg/dL (9-16); Calcium 9.9 mg/dL (8.4-10.2); Carbon Dioxide 26 mmol/L (22-29); Chloride 107 mmol/L (96-108); Creatinine Clr Calc Pharmacy 52.7; Estimated Glomerular Filt Rate > 60; Glucose Random 104 mg/dL (60-115); Lipase 29 U/L (8-78); Magnesium 2.3 mg/dL (1.6-2.6); Potassium 3.3 mmol/L (3.3-5.1); Sodium 144 mmol/L (135-145); Total Protein 7.6 g/dL (6.5-8.0)
[2021-09-22 15:01] LABS: Troponin-I High Sensitivity 25.1 ng/L (<3.5-17.0)
[2021-09-22 15:06] VITALS: BP 164/79; PULSE 84; RESP 14; TEMP 36.4; O2SAT 98
[2021-09-22 15:09] LABS: Appearance Urine HAZY; Color Urine YELLOW; Glucose Urine UA NEG (NEG); Leukocyte Esterase Urine NEG (NEG); Nitrite Urine POS (NEG); Specific Gravity - Urine 1.015 (1.005-1.025); UACC Culture Trigger YES; Urine Blood NEG (NEG); Urine Ketones NEG (NEG); Urine Protein TRACE MG/DL (NEG-TRACE)
[2021-09-22 15:16] LABS: Bacteria Urine 3+ /LPF; Squamous Epithelial Cell Urine 1+ /LPF
[2021-09-22 15:17] LABS: RBC Urine 0 /HPF (0); WBC Urine 0-2 /HPF (0-4)
[2021-09-22] MEDS: 0.9 % Sodium Chloride 1,000 ML 999 ML IV (16:46)
[2021-09-22 18:13] LABS: Troponin-I High Sensitivity 26.5 ng/L (<3.5-17.0)
[2021-09-22 19:07] VITALS: BP 154/70; PULSE 61; RESP 16; TEMP 37; O2SAT 98
== END 2021-09-22 19:21 | disposition home or self-care (01) ==
PROVIDERS: Emergency Provider Emergency Medicine Emergency Medical Services
DX: N39.0 Urinary tract infection, site not specified (principal); R42 Dizziness and giddiness; I10 Essential (primary) hypertension
CPT/HCPCS: 36415; 70450; 74176; 80048; 80076; 81001; 83690; 83735; 84484; 85025; 87086; 87088; 87186; 93005; 96361; 96374; 99284; J2405

== ENCOUNTER 2022-01-14 18:14 | Inpatient (IN) | payer OTHER, SELFPAY ==
--- NOTE | ~2022-01-14 | US_ITS ---
EXAMINATION: US RETROPERITONEAL LIMITED (RENAL ONLY) CLINICAL INFORMATION: Acute kidney insufficiency. COMPARISON: Previous CT of the abdomen and pelvis most recent from yesterday TECHNIQUE: Grayscale and color imaging of the kidneys FINDINGS: RIGHT KIDNEY: 9.6 x 4 x 5 cm (SAG x AP x TRV). The kidney is normal in size, contour, and echogenicity. Renal cortical thickness is normal. There are 3 cysts measuring 1.4 cm in the lateral upper pole, 1.5 x 1.7 cm in the upper to midpole and 1.7 cm in the lateral midpole. No calculi or mass. No hydronephrosis. LEFT KIDNEY: 10 x 5.8 x 5 cm (SAG x AP x TRV). The kidney is normal in size, contour, and echogenicity. Renal cortical thickness is normal. There is a 1 cm echogenic lesion in the lower pole. Compare with previous CT this is consistent with a benign angiomyolipoma. There is a 5 mm echogenic lesion in the medial upper pole also questionable for an angiomyolipoma.. No corresponding abnormality is seen on CT scan. Small left renal stone seen by CT is not appreciated by ultrasound. No hydronephrosis. US/US renal BI IMPRESSION: No hydronephrosis. Right renal cysts. 2 echogenic left renal lesions questionable for angiomyolipomas.
--- NOTE | ~2022-01-14 | XR_ITS ---
EXAMINATION: XR LUMBOSACRAL SPINE CLINICAL INFORMATION: Low back pain COMPARISON: Scoliosis series 06/02/2019, MRI lumbar spine 05/24/2014 TECHNIQUE: Three views of the lumbosacral spine. FINDINGS: Again seen is a scoliosis convex to the right, unchanged when compared to the 06/02/2019 study. Sclerotic changes are present at the SI joints. No fractures are seen. Mild degenerative changes are noted. XR/XR lumbar spine 2-3V IMPRESSION: Scoliosis and degenerative changes unchanged from 2019.
--- NOTE | ~2022-01-14 | CT_ITS ---
EXAMINATION: CT ABDOMEN AND PELVIS WITHOUT CONTRAST CLINICAL INFORMATION: Acute renal failure. COMPARISON: 09/22/2021. TECHNIQUE: Multidetector volumetric imaging was performed from the superior aspect of the liver through the pubic symphysis. Sagittal and coronal reformatted images were obtained on the technologist's workstation. This CT examination was performed using dose optimization techniques as appropriate, variously including the following: *Automated exposure control *Adjustment of mA and/or kV according to patient size (this includes techniques or standardized protocols for targeted exams where dose is matched to indication/reason for exam; i.e. extremities or head) *Use of iterative reconstruction technique DLP: 545 mGy-cm FINDINGS: LUNG BASES: Mild dependent atelectasis. Calcification is evident at the aortic valve. LIVER, GALLBLADDER, AND BILIARY TREE: The liver is normal in size, shape, and attenuation. No focal hepatic lesion or biliary ductal dilatation is present. The gallbladder is unremarkable with no evidence of radiopaque gallstones, gallbladder wall thickening, or obvious pericholecystic inflammatory changes. PANCREAS: Unremarkable. SPLEEN: Unremarkable. ADRENAL GLANDS: Unremarkable. KIDNEYS AND URETERS: The kidneys are normal in size, shape, and attenuation. No hydronephrosis or hydroureter. A punctate 2 mm calculus is present within the left upper pole calyx. No appreciable right-sided renal calculi. There is a small parapelvic cyst in the right kidney. A hypoattenuating cystic structure in the left renal cortex measures 7 mm in diameter and is also too small to characterize. No recommend imaging follow-up. No perinephric stranding. BLADDER: Unremarkable. GASTROINTESTINAL TRACT: The small and large bowel are unremarkable. The appendix is unremarkable. ABDOMINAL WALL: No significant hernia is appreciated. LYMPH NODES: Stomach, small bowel, and colon are normal in caliber. No bowel wall thickening or surrounding inflammatory changes. Appendix is normal. No intraperitoneal free fluid or free air. . Moderate-sized stool ball at the rectum measures 6 cm in diameter. VASCULAR: Atherosclerotic calcifications are present in the abdominal aorta and iliac arteries. No aneurysmal dilatation. PELVIC VISCERA: The uterus and adnexa are unremarkable. OSSEOUS STRUCTURES: Right convex lumbar scoliosis. Grade 1 anterolisthesis of L3 on L4 and L4-L5. Multilevel degenerative disc disease and facet arthropathy. 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 Chronic posttraumatic degeneration of the pubic symphysis. CT/CT abdomen pelvis wo con IMPRESSION: 1. No acute abnormalities identified in the abdomen and pelvis. Punctate left renal calculus. No obstructive uropathy. 2. Moderate-sized stool ball at the rectum. 3. Moderate to severe multilevel degenerative spondylosis in the lumbar spine with right convex scoliosis. Fleischner guidelines were followed.
[2022-01-14 18:25] VITALS: BP 140/80; BP 92/52; PULSE 71; RESP 16; TEMP 36.7; O2SAT 98; BMI 25.4
--- NOTE | 2022-01-14 19:03 | ED_ITS ---
HPI - General Adult General Chief complaint: General Medical Stated complaint: pain all over Time Seen by Provider: 01/14/22 19:03 Source: patient and family Mode of arrival: EMS History of Present Illness HPI narrative: Patient is 76 years old with history of hypertension, dementia, seizure disorder , chronic back pain brought by her daughter for increase back pain and confusion for last few days and not eating much and sleepy most of the time. No odor in the urine no fever no chills no abdominal pain no nausea vomiting. No hematuria or melena Related Data Previous Rx's Medication Instructions Recorded cyclobenzaprine 10 mg tablet 10 mg PO TID #10 tab 10/25/20 naproxen 500 mg tablet (Naprosyn) 500 mg PO BID #20 tab 10/25/20 albuterol sulfate 90 mcg/actuation 2 puff INHALATION QID PRN #6.7 g 02/22/21 aerosol inhaler cefuroxime axetil 500 mg tablet 500 mg PO BID 7 Days #14 tab 02/22/21 hydrocodone-homatropine 5 mg-1.5 5 ml PO Q6H PRN #60 ml 02/22/21 mg/5 mL (5 mL) oral syrup ondansetron 4 mg disintegrating 4 mg PO Q8H PRN #20 tab 02/22/21 tablet cefpodoxime 100 mg tablet 100 mg PO BID #14 tab 09/22/21 Allergies Allergy/AdvReac Type Severity Reaction Status Date / Time aspirin [ASPIRIN] Allergy Unknown hives Verified 01/14/22 18:28 Review of Systems Review of Systems: Yes all other systems are reviewed and are negative PMFSH Past Medical History Medical History Dementia HTN (hypertension) Seizures Social History Social History Alcohol intake: never Patient Tobacco Use Status: Never used Tobacco Use of substances other than those prescribed or required for medical reasons: No Advance Directives: No Advance Directives Information Provided: No Physical Exam ED Vital Signs: Vital Signs - 24 hr 01/14/22 18:25 01/14/22 20:24 01/14/22 21:32 Temperature 98.0 F Pulse Rate 71 79 62 Respiratory Rate 16 14 14 Blood Pressure 92/52 L 100/54 L 101/52 L Pulse Oximetry 98 98 98 BMI result Body Mass Index 25.4 Appearance: Alert. Oriented X2. No acute distress. Eyes: PERRLA, No Nystagmus ENT: Pharynx normal. Oral Mucosa moist Neck: Normal inspection. Neck supple. CVS: Normal heart rate and rhythm. Pulses normal. Respiratory: No respiratory distress. Equal air entry bilateral, no wheezing/rales/rhonchi Abdomen: Soft and nontender. Bowel sounds are present, no mass palpable, no CVA tenderness Back: Diffuse lower lumbar spine tenderness no focal spinal tenderness Skin: Skin warm and dry. Normal skin color. Normal skin turgor. Extremities: No lower extremity edema. No calf tenderness Neuro: Oriented X 2. No motor deficit. No sensory deficit.No cerebellar signs , cranial nerves II-XII intact Medical Decision Making MDM Narrative Medical decision making narrative: Patient with chronic back pain with acute confusion and lethargic etiology not very clear lab workup showed elevated creatinine of 5.92 with BUN of 45 patient had normal creatinine on 10/03 of 0.85 etiology is not very clear CT scan of the abdomen did not show any obstructive uropathy will admit patient for acute renal failure with confusion Lab Data Lab results reviewed: Yes I reviewed the patient's lab results. Result diagrams: 01/14/22 20:22 01/14/22 20:22 Labs: Lab Results 01/14/22 01/14/22 01/14/22 Range/Units 20:22 20:22 20:22 WBC 12.9 H (4.8-10.8) X10*3/uL RBC 4.76 (4.20-5.50) X10*6/uL Hgb 12.5 (12.0-16.0) g/dl Hct 37.9 (37.0-47.0) % MCV 79.6 L (80.0-98.0) fL MCH 26.3 L (27.0-33.0) pg MCHC 33.0 (31.0-35.0) g/dl RDW 16.0 (11.0-16.0) % Plt Count 230 (160-400) X10*3/uL MPV 10.2 (9.4-12.3) fL Immature Gran % (Auto) 0.4 (0.0-0.4) % Neut % (Auto) 71.2 (45-73) % Lymph % (Auto) 18.2 L (20-40) % [place] % (Auto) 9.4 (2-11) % Eos % (Auto) 0.5 (0-4) % Baso % (Auto) 0.3 (0-2) % Lymph # (Auto) 2.3 (1.2-4.9) X10*3/uL [place] # (Auto) 1.2 (0.1-1.2) X10*3/uL Eos # (Auto) 0.1 (0.0-0.4) X10*3/uL Baso # (Auto) 0.0 (0.0-0.2) X10*3/uL Abs Immat Gran (auto) 0.05 H (0.00-0.03) X10*3/uL Absolute Neuts (auto) 9.2 H (2.0-8.3) x10*3/uL Absolute Nucleated RBC 0.000 (0.0-0.012) X10*3/uL Nucleated RBC % (auto) 0.0 (0.0-0.2) /100WBC Sodium (135-145) mmol/L Potassium (3.3-5.1) mmol/L Chloride (96-108) mmol/L Carbon Dioxide (22-29) mmol/L Anion Gap (12-20) BUN (9-16) mg/dL Creatinine (0.5-1.4) mg/dL Estim Creat Clear Calc Estimated GFR Random Glucose (60-115) mg/dL Calcium (8.4-10.2) mg/dL Total Bilirubin (0.0-1.0) mg/dL AST (5-31) U/L ALT (0-31) U/L Alkaline Phosphatase (39-117) U/L Total Protein (6.5-8.0) g/dL Albumin (3.5-5.0) g/dL Urine Color Urine Appearance Urine pH (5.0-8.0) Ur Specific [place] (1.005-1.025) Urine Protein (NEG-TRACE) MG/DL Urine Glucose (UA) (NEG) MG/DL Urine Ketones (NEG) MG/DL Urine Blood (NEG) Urine Nitrite (NEG) Ur Leukocyte Esterase (NEG) Urine RBC (0) /HPF Urine WBC (0-4) /HPF Ur Squamous Epith Cells /LPF Urine Bacteria /LPF Granular Casts /LPF Urine Mucus /LPF COVID-19 (GAGE) Negative (Negative) COVID-19 Clin Com See Note Influenza Type A (MYRTLE) Negative (Negative) Influenza Type B (MYRTLE) Negative (Negative) Influenza A & B Note See Note 01/14/22 01/14/22 Range/Units 20:22 23:47 WBC (4.8-10.8) X10*3/uL RBC (4.20-5.50) X10*6/uL Hgb (12.0-16.0) g/dl Hct (37.0-47.0) % MCV (80.0-98.0) fL MCH (27.0-33.0) pg MCHC (31.0-35.0) g/dl RDW (11.0-16.0) % Plt Count (160-400) X10*3/uL MPV (9.4-12.3) fL Immature Gran % (Auto) (0.0-0.4) % Neut % (Auto) (45-73) % Lymph % (Auto) (20-40) % [place] % (Auto) (2-11) % Eos % (Auto) (0-4) % Baso % (Auto) (0-2) % Lymph # (Auto) (1.2-4.9) X10*3/uL [place] # (Auto) (0.1-1.2) X10*3/uL Eos # (Auto) (0.0-0.4) X10*3/uL Baso # (Auto) (0.0-0.2) X10*3/uL Abs Immat Gran (auto) (0.00-0.03) X10*3/uL Absolute Neuts (auto) (2.0-8.3) x10*3/uL Absolute Nucleated RBC (0.0-0.012) X10*3/uL Nucleated RBC % (auto) (0.0-0.2) /100WBC Sodium 142 (135-145) mmol/L Potassium 3.7 (3.3-5.1) mmol/L Chloride 104 (96-108) mmol/L Carbon Dioxide 24 (22-29) mmol/L Anion Gap 18 (12-20) BUN 45 H D (9-16) mg/dL Creatinine 5.92 H* (0.5-1.4) mg/dL Estim Creat Clear Calc 7.3 Estimated GFR 7 Random Glucose 95 (60-115) mg/dL Calcium 9.9 (8.4-10.2) mg/dL Total Bilirubin 0.4 (0.0-1.0) mg/dL AST 24 (5-31) U/L ALT 15 (0-31) U/L Alkaline Phosphatase 74 (39-117) U/L Total Protein 7.5 (6.5-8.0) g/dL Albumin 4.6 (3.5-5.0) g/dL Urine Color YELLOW Urine Appearance CLEAR Urine pH 6.0 (5.0-8.0) Ur Specific [place] 1.010 (1.005-1.025) Urine Protein 2+ H (NEG-TRACE) MG/DL Urine Glucose (UA) NEG (NEG) MG/DL Urine Ketones NEG (NEG) MG/DL Urine Blood 2+ H (NEG) Urine Nitrite NEG (NEG) Ur Leukocyte Esterase TRACE H (NEG) Urine RBC 1-4 (0) /HPF Urine WBC 5-9 H (0-4) /HPF Ur Squamous Epith Cells 1+ /LPF Urine Bacteria 3+ /LPF Granular Casts 1-4 /LPF Urine Mucus 1+ /LPF COVID-19 (GAGE) (Negative) COVID-19 Clin Com Influenza Type A (MYRTLE) (Negative) Influenza Type B (MYRTLE) (Negative) Influenza A & B Note Discharge Plan Discharge Clinical Impression: Acute renal failure Patient Disposition: Admitted As Inpatient
--- NOTE | 2022-01-14 19:17 | PC.NURSE ---
pt alert and oriented to self and understands that she is in the hospital. pt is a poor historian, hx of dementia. reports fall at home today with possible head strike. daughter reports that pt was doing well today and received a phone call 0 from brother that pt was disoriented and confused from baseline. daughter reports consistently decreased PO intake, strong smelling urine. pt to xray. lang interpreter in room.
[2022-01-14 20:24] VITALS: BP 100/54; PULSE 79; RESP 14; O2SAT 98
[2022-01-14 20:30] LABS: MANUAL DIFF FLAG NO
[2022-01-14 20:33] LABS: Basophils Percent Auto 0.3 % (0-2); Eosinophils Absolute Auto 0.1 X10*3/uL (0.0-0.4); Eosinophils Percent Auto 0.5 % (0-4); Hematocrit 37.9 % (37.0-47.0); Hemoglobin 12.5 g/dl (12.0-16.0); Imm Gran Abs Auto 0.05 X10*3/uL (0.00-0.03); Imm Gran Pct Auto 0.4 % (0.0-0.4); Lymphocytes Absolute Auto 2.3 X10*3/uL (1.2-4.9); Lymphocytes Percent Auto 18.2 % (20-40); Mean Corpuscular Hemoglobin 26.3 pg (27.0-33.0); Mean Corpuscular Volume 79.6 fL (80.0-98.0); Mean Platelet Volume 10.2 fL (9.4-12.3); Monocytes Absolute Auto 1.2 X10*3/uL (0.1-1.2); Monocytes Percent Auto 9.4 % (2-11); Neutrophils Absolute Auto 9.2 x10*3/uL (2.0-8.3); Neutrophils Percent Auto 71.2 % (45-73); Platelet Count 230 X10*3/uL (160-400); Red Blood Count 4.76 X10*6/uL (4.20-5.50); White Blood Count 12.9 X10*3/uL (4.8-10.8)
[2022-01-14 20:54] LABS: COVID-19 Test Negative (Negative); IDNOW Serial# 16C4AD1C
[2022-01-14 20:55] LABS: Influenza A Negative (Negative); Influenza B2 Negative (Negative)
[2022-01-14 21:16] LABS: Alanine Aminotransferase 15 U/L (0-31); Albumin Level 4.6 g/dL (3.5-5.0); Alkaline Phosphatase 74 U/L (39-117); Anion Gap 18 (12-20); Aspartate Amino Transferase 24 U/L (5-31); Bilirubin Total 0.4 mg/dL (0.0-1.0); Blood Urea Nitrogen 45 mg/dL (9-16); Calcium 9.9 mg/dL (8.4-10.2); Carbon Dioxide 24 mmol/L (22-29); Chloride 104 mmol/L (96-108); Creatinine Clr Calc Pharmacy 7.3; Estimated Glomerular Filt Rate 7; Glucose Random 95 mg/dL (60-115); Potassium 3.7 mmol/L (3.3-5.1); Sodium 142 mmol/L (135-145); Total Protein 7.5 g/dL (6.5-8.0)
[2022-01-14 21:32] VITALS: BP 101/52; PULSE 62; RESP 14; O2SAT 98
[2022-01-14] MEDS: 0.9 % Sodium Chloride 1,000 ML 999 ML IV (22:26)
[2022-01-14 23:57] LABS: Appearance Urine CLEAR; Color Urine YELLOW; Glucose Urine UA NEG (NEG); Leukocyte Esterase Urine TRACE (NEG); Nitrite Urine NEG (NEG); UACC Culture Trigger NO; Urine Blood 2+ (NEG); Urine Ketones NEG (NEG); Urine Protein 2+ MG/DL (NEG-TRACE)
[2022-01-15] VITALS (8 sets, daily range): BP systolic 115–144; BP diastolic 58–81; PULSE 60–71; RESP 12–18; TEMP 36.4–36.8; O2SAT 94–99
[2022-01-15 00:06] LABS: Bacteria Urine 3+ /LPF; Mucus Urine 1+ /LPF; Squamous Epithelial Cell Urine 1+ /LPF; UACC CULT YES
--- NOTE | 2022-01-15 00:26 | P.HPHOSP_ITS ---
History of Present Illness Date of Service: 01/15/22 Chief Complaint: increased confusion, weakness Patient is Danish-speaking, and history is obtained with the help of an scrap baler. this is a 76-year-old female with past medical history of hypertension, dementia, seizure disorder, chronic back pain who was brought into the hospital by her daughter for increased confusion, back pain, and low appetite for the past few days. Patient herself denies having any weakness, but does report low oral intake as she does not have appetite. She denies having any abdominal pain nausea or vomiting, no diarrhea constipation, no urinary symptoms. No urinary dysuria urgency or frequency. Patient reports no fever or chills. Denies any chest pain shortness of breath. No cough. On arrival to the ED patient hemodynamically stable with no significant abnormal vitals Labs are significant for WBC count of 12 and 9, BUN of 45, creatinine of 5.9 today with a baseline of 13 and 0.85 respectively UA positive for leukocyte Estrace as well as WBC abdomen pelvic CT showed no acute abnormalities, no obstructive uropathy, moderate-sized stool ball at the rectum, patient will be admitted for further management Review of Systems Review of Systems: Yes all other systems are reviewed and are negative [facility] Medical History (Updated 01/15/22 @ 06:09 by Carlitos Meza MD) Dementia HTN (hypertension) Seizures Family History (Updated 01/15/22 @ 06:09 by Carlitos Meza MD) Other No family history of coronary artery disease Surgical History (Updated 01/15/22 @ 06:09 by Carlitos Meza MD) H/O tubal ligation Social History Alcohol intake: never Patient Tobacco Use Status: Never used Tobacco Use of substances other than those prescribed or required for medical reasons: No Advance Directives: No Advance Directives Information Provided: No Meds Allergies Allergy/AdvReac Type Severity Reaction Status Date / Time aspirin [ASPIRIN] Allergy Unknown hives Verified 01/14/22 18:28 Physical Exam 2 Vital Signs and Narrative: Vital Signs: Last Vital Signs Temp 98.0 F 01/14/22 18:25 Pulse 62 01/14/22 21:32 Resp 14 01/14/22 21:32 BP 101/52 L 01/14/22 21:32 Pulse Ox 98 01/14/22 21:32 BMI result Body Mass Index 25.4 Const: General: cooperative and no acute distress Orientation/consciousness: patient oriented x3 Eyes: General: appearance normal, both eyes and all related structures Pupils: Equal, round and reactive pupils present Resp: Effort & Inspection: normal respiratory effort Auscultation: clear to auscultation bilaterally Cardio: Rate: regular rate Rhythm: regular rhythm GI: Palpation (GI): Soft to palpation Auscultation: normal bowel sounds : Other: no CVA tenderness Skin: General skin exam: no rashes or lesions noted Neuro: General: patient oriented x3 Cranial nerves: Yes Equal, round and reactive pupils present Cognition (Neuro): normal cognition Extrem: General: Yes normal to inspection and Yes no pedal edema Results Labs CBC and Chem 7: 01/14/22 20:22 01/14/22 20:22 Labs: Laboratory Results - last 24 hr 01/14/22 01/14/22 01/14/22 20:22 20:22 20:22 MCV 79.6 L MCH 26.3 L MCHC 33.0 RDW 16.0 Plt Count 230 MPV 10.2 Immature Gran % (Auto) 0.4 Neut % (Auto) 71.2 Lymph % (Auto) 18.2 L [place] % (Auto) 9.4 Eos % (Auto) 0.5 Baso % (Auto) 0.3 Lymph # (Auto) 2.3 [place] # (Auto) 1.2 Eos # (Auto) 0.1 Baso # (Auto) 0.0 Abs Immat Gran (auto) 0.05 H Absolute Neuts (auto) 9.2 H Absolute Nucleated RBC 0.000 Nucleated RBC % (auto) 0.0 Anion Gap Estim Creat Clear Calc Estimated GFR Random Glucose Calcium Total Bilirubin AST ALT Alkaline Phosphatase Total Protein Albumin Urine Color Urine Appearance Urine pH Ur Specific [place] Urine Protein Urine Glucose (UA) Urine Ketones Urine Blood Urine Nitrite Ur Leukocyte Esterase Urine RBC Urine WBC Ur Squamous Epith Cells Urine Bacteria Granular Casts Urine Mucus COVID-19 (GAGE) Negative COVID-19 Clin Com See Note Influenza Type A (MYRTLE) Negative Influenza Type B (MYRTLE) Negative Influenza A & B Note See Note 01/14/22 01/14/22 20:22 23:47 MCV MCH MCHC RDW Plt Count MPV Immature Gran % (Auto) Neut % (Auto) Lymph % (Auto) [place] % (Auto) Eos % (Auto) Baso % (Auto) Lymph # (Auto) [place] # (Auto) Eos # (Auto) Baso # (Auto) Abs Immat Gran (auto) Absolute Neuts (auto) Absolute Nucleated RBC Nucleated RBC % (auto) Anion Gap 18 Estim Creat Clear Calc 7.3 Estimated GFR 7 Random Glucose 95 Calcium 9.9 Total Bilirubin 0.4 AST 24 ALT 15 Alkaline Phosphatase 74 Total Protein 7.5 Albumin 4.6 Urine Color YELLOW Urine Appearance CLEAR Urine pH 6.0 Ur Specific [place] 1.010 Urine Protein 2+ H Urine Glucose (UA) NEG Urine Ketones NEG Urine Blood 2+ H Urine Nitrite NEG Ur Leukocyte Esterase TRACE H Urine RBC 1-4 Urine WBC 5-9 H Ur Squamous Epith Cells 1+ Urine Bacteria 3+ Granular Casts 1-4 Urine Mucus 1+ COVID-19 (GAGE) COVID-19 Clin Com Influenza Type A (MYRTLE) Influenza Type B (MYRTLE) Influenza A & B Note Imaging Radiologist's Impressions: Impressions Lumbar Spine X-Ray 01/14/22 19:25 IMPRESSION: Scoliosis and degenerative changes unchanged from 2019. Abdomen/Pelvis CT 01/14/22 22:35 IMPRESSION: 1. No acute abnormalities identified in the abdomen and pelvis. Punctate left renal calculus. No obstructive uropathy. 2. Moderate-sized stool ball at the rectum. 3. Moderate to severe multilevel degenerative spondylosis in the lumbar spine with right convex scoliosis. Fleischner guidelines were followed. Assessment and Plan (1) Acute renal failure: Status: Acute (2) UTI (urinary tract infection): Status: Acute Plan 76-year-old female with past medical history of hypertension, seizure, as well as dementia presents to the hospital with complaints of increased confusion found to have SUNDAY is low UTI # SUNDAY - likely prerenal secondary to dehydration as well as acute infection, no obstructing stone identified - patient will be started on IV fluids - follow BMP - avoid nephrotoxins # UTI - positive UA, has leukocytosis, afebrile - will treat with IV antibiotics - follow cultures DVT prophylaxis: Heparin subQ Quality Stroke Does the patient have a stroke diagnosis?: No VTE Prior VTE?: No VTE Risk Level:: Medical - moderate - high VTE Device Contraindication: Treatment Not Indicated VTE Drug Contraindication: N/A - Med Ordered
[2022-01-15] MEDS: Lactated Ringers 1,000 ML 100 ML IVCONT ×3 (01:58→17:36)
[2022-01-15] MEDS: Acetaminophen 325 MG TABLET 650 MG PO (02:01)
--- NOTE | 2022-01-15 02:01 | PC.NURSE ---
Pt c/o GARCIA Pt medicated per MAR Will continue to monitor
--- NOTE | 2022-01-15 04:38 | PC.NURSE ---
RECEIVED FROM MAIN ER TO BED 7 OVERFLOW..ALERT....CONVERSES..LYNN AND REPOSITIONS SELF..RESPIRATIONS EASY ON ROOM AIR...LR 100 CC/HR..DENIES DISCOMFORT..DOZING W/O DIFFICULTY AFTER TRANSFER
[2022-01-15 08:08] LABS: MANUAL DIFF FLAG NO
--- NOTE | 2022-01-15 08:09 | HO.PM.IMPN ---
Subjective Subjective Date of Service: 01/15/22 Interval History: sunday/uti Review of Systems Patient mental status has baseline as per the daughter at the bedside. Patient denies any chest pain or shortness of breath or abdominal pain or nausea or vomiting or fever she, she says that she has decreased appetite and almost 1 and half week ago she went to her PCP where he she was told her kidney function is low- subsequently was try to encourage for p.o. uptake and hydration which was still not enough as per the daughter. Physical Exam Vital Signs: Vital Signs: Last Vital Signs Temp 97.9 F 01/15/22 03:25 Pulse 60 01/15/22 07:12 Resp 14 01/15/22 07:12 BP 116/65 01/15/22 07:12 Pulse Ox 97 01/15/22 07:12 BMI result Body Mass Index 25.4 Appearance: Alert.? Oriented X3.? not in distress.?. cvs: rrr, [id number] , no murmur res: clear to auscultation ,no rhonchii or wheezing abd: no rebound or guarding ,nt, bs present. ext pulses present , no cyanosis ,Gait well balanced well coordinated. neuro: axo3 , nonfocal. Objective Data Active Medications Acetaminophen (Acetaminophen 325 Mg Tablet) 650 mg PO Q6H PRN PRN Reason: Pain, Mild (Pain Scale 1-3) Last Admin: 01/15/22 02:01 Dose: 650 mg Documented by: PATRICIA Docusate Sodium (Docusate Sodium 100 Mg Capsule) 100 mg PO DAILY PRN PRN Reason: Constipation Heparin Sodium (Porcine) (Heparin Sodium,Porcine 5,000 Unit/Ml Vial) 5,000 unit SUBCUT Q12H [facility] Last Admin: 01/15/22 07:41 Dose: Not Given Documented by: BHASKAR Non-Admin Reason: Patient Refused Lactated Ringer's (Lr) 1,000 mls @ 100 mls/hr IVCONT .Q10H [facility] Last Admin: 01/15/22 01:58 Dose: 100 mls/hr Documented by: JANNY Ondansetron HCl (Ondansetron Hcl 4 Mg/2 Ml Vial) 4 mg IVPUSH Q8H PRN PRN Reason: Nausea and Vomiting Pharmacy Consult (Consult Rx Perform Med Rec) 1 each MISCELLANE ONCE PRN PRN Reason: Consult order Polyethylene Glycol (Polyethylene Glycol 3350 17 Gm Powd.Pack) 17 gm PO DAILY [facility] Last Admin: 01/15/22 07:41 Dose: Not Given Documented by: BHASKAR Non-Admin Reason: Patient Refused Labs CBC & Chem 7: 01/15/22 07:30 01/15/22 07:30 Labs: Laboratory Results - last 24 hr 01/14/22 01/14/22 01/14/22 20:22 20:22 20:22 MCV 79.6 L MCH 26.3 L MCHC 33.0 RDW 16.0 Plt Count 230 MPV 10.2 Immature Gran % (Auto) 0.4 Neut % (Auto) 71.2 Lymph % (Auto) 18.2 L [place] % (Auto) 9.4 Eos % (Auto) 0.5 Baso % (Auto) 0.3 Lymph # (Auto) 2.3 [place] # (Auto) 1.2 Eos # (Auto) 0.1 Baso # (Auto) 0.0 Abs Immat Gran (auto) 0.05 H Absolute Neuts (auto) 9.2 H Absolute Nucleated RBC 0.000 Nucleated RBC % (auto) 0.0 Anion Gap Estim Creat Clear Calc Estimated GFR Random Glucose Calcium Total Bilirubin AST ALT Alkaline Phosphatase Total Protein Albumin Urine Color Urine Appearance Urine pH Ur Specific [place] Urine Protein Urine Glucose (UA) Urine Ketones Urine Blood Urine Nitrite Ur Leukocyte Esterase Urine RBC Urine WBC Ur Squamous Epith Cells Urine Bacteria Granular Casts Urine Mucus COVID-19 (GAGE) Negative COVID-19 Clin Com See Note Influenza Type A (MYRTLE) Negative Influenza Type B (MYRTLE) Negative Influenza A & B Note See Note 01/14/22 01/14/22 20:22 23:47 MCV MCH MCHC RDW Plt Count MPV Immature Gran % (Auto) Neut % (Auto) Lymph % (Auto) [place] % (Auto) Eos % (Auto) Baso % (Auto) Lymph # (Auto) [place] # (Auto) Eos # (Auto) Baso # (Auto) Abs Immat Gran (auto) Absolute Neuts (auto) Absolute Nucleated RBC Nucleated RBC % (auto) Anion Gap 18 Estim Creat Clear Calc 7.3 Estimated GFR 7 Random Glucose 95 Calcium 9.9 Total Bilirubin 0.4 AST 24 ALT 15 Alkaline Phosphatase 74 Total Protein 7.5 Albumin 4.6 Urine Color YELLOW Urine Appearance CLEAR Urine pH 6.0 Ur Specific [place] 1.010 Urine Protein 2+ H Urine Glucose (UA) NEG Urine Ketones NEG Urine Blood 2+ H Urine Nitrite NEG Ur Leukocyte Esterase TRACE H Urine RBC 1-4 Urine WBC 5-9 H Ur Squamous Epith Cells 1+ Urine Bacteria 3+ Granular Casts 1-4 Urine Mucus 1+ COVID-19 (GAGE) COVID-19 Clin Com Influenza Type A (MYRTLE) Influenza Type B (MYRTLE) Influenza A & B Note Assessment and Plan (1) UTI (urinary tract infection): Status: Acute (2) Acute renal failure: Status: Acute Plan 76-year-old female with past medical history of hypertension, seizure, as well as dementia presents to the hospital with complaints of increased confusion found to have SUNDAY is low UTI 1. SUNDAY on my examination patient does not seem to have encephalopathy- Mental status at baseline,confirmed with the daughter at bedside. -? likely prerenal secondary to dehydration as well as acute infection, no obstructing stone identified -? patient will be started on IV fluids -? follow BMP -? avoid nephrotoxins patient was strongly encouraged for p.o. intake and hydration. Nephro evaluation 2. ? UTI -? positive UA, has leukocytosis, afebrile -? will treat with IV antibiotics -? follow cultures ?DVT prophylaxis:? Heparin subQ Quality Stroke Does the patient have a stroke diagnosis?: No VTE Prior VTE?: No VTE Risk Level:: Medical - moderate - high VTE Device Contraindication: Treatment Not Indicated VTE Drug Contraindication: N/A - Med Ordered
[2022-01-15 08:12] LABS: Basophils Percent Auto 0.5 % (0-2); Eosinophils Absolute Auto 0.1 X10*3/uL (0.0-0.4); Eosinophils Percent Auto 0.8 % (0-4); Hemoglobin 12.1 g/dl (12.0-16.0); Imm Gran Abs Auto 0.03 X10*3/uL (0.00-0.03); Imm Gran Pct Auto 0.3 % (0.0-0.4); Lymphocytes Absolute Auto 1.6 X10*3/uL (1.2-4.9); Lymphocytes Percent Auto 17.8 % (20-40); Mean Corpuscular HGB Conc 32.7 g/dl (31.0-35.0); Mean Corpuscular Hemoglobin 26.3 pg (27.0-33.0); Mean Corpuscular Volume 80.4 fL (80.0-98.0); Mean Platelet Volume 10.7 fL (9.4-12.3); Monocytes Percent Auto 11.2 % (2-11); Neutrophils Absolute Auto 6.1 x10*3/uL (2.0-8.3); Neutrophils Percent Auto 69.4 % (45-73); Platelet Count 235 X10*3/uL (160-400); White Blood Count 8.8 X10*3/uL (4.8-10.8)
[2022-01-15 08:29] LABS: Anion Gap 15 (12-20); Blood Urea Nitrogen 41 mg/dL (9-16); Calcium 9.3 mg/dL (8.4-10.2); Carbon Dioxide 23 mmol/L (22-29); Chloride 109 mmol/L (96-108); Creatinine Clr Calc Pharmacy 8.5; Estimated Glomerular Filt Rate 8; Glucose Random 87 mg/dL (60-115); Potassium 3.3 mmol/L (3.3-5.1); Sodium 144 mmol/L (135-145)
--- NOTE | 2022-01-15 08:37 | PHA.MEDREC ---
Pharmacy Consult ? Medication Reconciliation Pharmacy has completed the medication reconciliation. Confirmed medications with patient's daughter Andra. She reports patient still takes hydrochlorothiazide last filled 2020. She is unsure if patient take donezepil however it was recently filled in November for a 90 day supply. Daphne Kc, ReidD
[2022-01-15] MEDS: levETIRAcetam 250 MG TABLET 750 MG PO ×2 (10:21→20:42)
--- NOTE | 2022-01-15 10:38 | PC.NURSE ---
hospitalist at bedside as well as one family memeber. card cutter helper at bedside as well. aware of plan of care and denied having any questions at this time.
--- NOTE | 2022-01-15 12:37 | MHC.CM.PN ---
PT RE[POTS SHE LIVES ALONE BUT HER DAUGHTER WHO IS ALSO HER ELECTROSTATIC PAINTER, COMES TO HER HOME DAILY SHE REPORTS SHE HAS NO OTHER SERVICES EXCEPT FOR A [facility] RN CM PT REPORTS SHE IS VACCINATED AGAINST COVID-19 WITH MODERNA X 2 SHE CONFIRMS HER PCP IS EROS SONI AND SHE HAS A HCP ON FILE IMM DELIVERED, COPY SENT TO [facility] CURRENT DC IS HOME WITH RESUMPTION OF ELECTROSTATIC PAINTER SERVICES FAMILY TO TRANSPORT
--- NOTE | 2022-01-15 12:39 | P.CDIC_ITS ---
CDI Concurrent Query Documentation Clarification: PHYSICIAN'S DOCUMENTATION REQUEST Date of Query: 01/15/22 1240 Patient Name: Silke Celeste Admit Date: 01/15/22 Dear Doctor, A review of the medical record indicates additional documentation may be needed. Please review below and update the documentation accordingly. Clinical Indicators: Risk Factors/Clinical Indicators/Treatments per ED note: acute confusion and lethargic PMH: Dementia Based on the above, could you clarify in the Progress Notes which, if any of the following, is the most likely etiology of the confusion/altered mental status? * Encephalopathy - indicate type such as metabolic, toxic, septic, alcoholic, hypertensive, etc. * Dementia - indicate type of dementia, such as Alzheimer's, senile, vascular, Lewy body, etc. * Acute delirium - indicate known or suspected etiology, such as postoperative, due to narcotics or other drugs, etc. * Baseline dementia - indicate type, such as Alzheimer's, senile, vascular, Lewy body, etc., and any associated behavioral disturbances (aggressive, combative, or violent behavior) * Acute or subacute confusional state due to (specify known or suspected etiology) * Other etiology (please specify) * Unable to determine Use of terms such as suspected, likely, concern for, or probable (associated with a specific diagnosis that is being evaluated, monitored, or treated as if it exists) are acceptable and can be coded in the inpatient setting, when documented at the time of discharge. Thank you, Juliana Kinsey RN Extension: [phone] Please use your independent medical judgment in providing your response. THIS QUERY IS PART OF THE PERMANENT MEDICAL RECORD Provider Response: Other Other Diagnosis: no encephalopathy.
--- NOTE | 2022-01-15 16:54 | PC.NURSE ---
report given to [place]
[2022-01-15] MEDS: Heparin Sodium,Porcine 5,000 UNIT/ML VIAL 5000 UNIT SUBCUT (20:42)
--- NOTE | 2022-01-15 21:56 | CONS_ITS ---
DATE OF SERVICE: REASON FOR CONSULTATION: I was called to see this patient to assist in the management of acute kidney injury. HISTORY OF PRESENT ILLNESS: To summarize, Silke is a pleasant 76-year-old woman with history of hypertension, dementia, and has no significant chronic kidney disease. Her baseline creatinine was 0.8 mg/dL back in September 2021. She comes in because of increased confusion, back pain, and lack of appetite. Her oral intake has been poor as well and at time of admission, she had a creatinine of more than 5. She was on IV hydration with some minimal improvement in the creatinine and hence this consultation. CT scan did not show any obstruction. Urinalysis has shown some blood and protein by dipstick. ONGOING MEDICAL PROBLEMS: Include history of hypertension, dementia, and seizures. REVIEW OF SYSTEMS: She had decrease in appetite and had back pain. No nausea, vomiting. No diarrhea, constipation. No polyuria, polydipsia. No joint pain. No fever. No rash. No weight loss. FAMILY HISTORY: Not contributory to this admission. SURGICAL HISTORY: Includes tubal ligation. SOCIAL HISTORY: No history of smoking or alcohol abuse. ALLERGIES: ASPIRIN. HOME MEDICATIONS: Reviewed. It is unclear if she has been taking any NSAIDs for the back pain. PHYSICAL EXAMINATION: GENERAL: Today, Silke appears comfortable, alert and awake, not able to answer simple questions. HEENT: Mucosa dry. NECK: Supple. No JVD. LUNGS: Air entry equal. HEART: S1, S2 heard. No gallop or rub. ABDOMEN: Soft, nontender. Bowel sounds heard. NEURO: Alert and awake. No asterixis. EXTREMITIES: No edema. No rash. No clubbing. No joint pain. No joint tenderness or swelling. VITAL SIGNS: Blood pressure 120/76, pulse 62. LABORATORY DATA: Sodium 145, potassium 3.3, BUN 14, creatinine 5.13. Urinalysis showed 2+ protein, 2+ blood by dipstick, only 1 to 4 rbc's. Hemoglobin 12.1, platelets 235, WBC 8.8. CPK was 181. Troponin not available. IMPRESSION: A 76-year-old woman with essential normal renal function at baseline. Currently has acute kidney injury. The different diagnosis of acute kidney injury would include acute tubular necrosis. However, with the urinary findings, underlying glomerulonephritis should be ruled out. No evidence of obstruction. RECOMMENDATIONS: Include check urine for protein creatinine ratio. Check serum complement, ANCA, , SPEP, UPEP, VICTOR MANUEL, hepatitis profile. Continue IV hydration. Keep intake more than the output. Keep on a low-potassium diet. Watch intake and output. Follow serum creatinine closely. At present, there is no absolute indication for dialysis. Further workup will be based on the outcome of the baseline investigations. We will follow her closely with the team. Xavi Portillo MD BPA/MODL / [phone]
[2022-01-16 03:04] VITALS: BP 162/80; PULSE 71; RESP 15; TEMP 37; O2SAT 97
[2022-01-16] MEDS: Lactated Ringers 1,000 ML 100 ML IVCONT (06:19)
[2022-01-16] MEDS: Levothyroxine Sodium 100 MCG TABLET PO (06:20)
[2022-01-16 06:28] LABS: Anion Gap 14 (12-20); Blood Urea Nitrogen 37 mg/dL (9-16); Calcium 9.2 mg/dL (8.4-10.2); Carbon Dioxide 24 mmol/L (22-29); Chloride 109 mmol/L (96-108); Creatinine Clr Calc Pharmacy 10.9; Estimated Glomerular Filt Rate 11; Glucose Random 91 mg/dL (60-115); Potassium 3.1 mmol/L (3.3-5.1); Sodium 144 mmol/L (135-145)
[2022-01-16 07:12] VITALS: BP 119/58; PULSE 71; RESP 18; TEMP 36.7; O2SAT 98
[2022-01-16 09:16] LABS: Creatinine Urine 71.74 mg/dL; Microalbum/Creatinine Ratio Ur 231.3 ug/mg cr
[2022-01-16] MEDS: levETIRAcetam 250 MG TABLET 750 MG PO ×2 (10:26→20:20)
[2022-01-16] MEDS: Heparin Sodium,Porcine 5,000 UNIT/ML VIAL 5000 UNIT SUBCUT ×2 (10:26→20:20)
[2022-01-16] MEDS: polyethylene glycoL 3350 17 GM POWD.PACK PO (10:27)
--- NOTE | 2022-01-16 10:28 | P.PNNP_ITS ---
Subjective Subjective Date of Service: 01/16/22 Interval history: Events noted Daughter at bedside PO intake has been poor Physical Exam 2 Vital Signs: Vital Signs: Last Vital Signs Temp 98.1 F 01/16/22 07:12 Pulse 71 01/16/22 07:12 Resp 18 01/16/22 07:12 BP 119/58 L 01/16/22 07:12 Pulse Ox 98 01/16/22 07:12 BMI result Body Mass Index 25.4 Const: General: cooperative and no acute distress Orientation/consciousness: patient oriented x3 Eyes: General: appearance normal, both eyes and all related structures Resp: Effort & Inspection: normal respiratory effort Auscultation: clear to auscultation bilaterally Cardio: Rate: regular rate Rhythm: regular rhythm GI: Palpation (GI): Soft to palpation Auscultation: normal bowel sounds Skin: General skin exam: no rashes or lesions noted Neuro: General: patient oriented x3 Extrem: General: Yes normal to inspection and Yes no pedal edema Objective Data Labs CBC & Chem 7: 01/15/22 07:30 01/16/22 05:46 Labs: Laboratory Results - last 24 hr 01/16/22 01/16/22 05:46 08:40 Sodium 144 Potassium 3.1 L Chloride 109 H Carbon Dioxide 24 Anion Gap 14 BUN 37 H Creatinine 3.99 H Estim Creat Clear Calc 10.9 Estimated GFR 11 Random Glucose 91 Calcium 9.2 Urine Creatinine 71.74 Urine Microalbumin 166.0 Microalb/Creat Ratio 231.3 Procedures Date of Service Date of Service: 01/16/22 Assessment & Plan Assessment and plan (1) Acute renal failure: Status: Acute Plan SUNDAY Most likely from dehydration Work up in progress No significant proteinuria No obstruction Cr improving with hydration Keep I > O Time Spent With Patient Time: Total time spent is greater than 50% in coordination of care (as documented) at patient's floor/unit and/or counseling patient: Progress Note: Quality Stroke Does the patient have a stroke diagnosis?: No
[2022-01-16] MEDS: Acetaminophen 325 MG TABLET 650 MG PO ×2 (10:34→20:20)
[2022-01-16 11:23] VITALS: BP 142/70; PULSE 71; RESP 20; TEMP 36.9; O2SAT 96
--- NOTE | 2022-01-16 14:42 | P.PNIM_ITS ---
Subjective Subjective Date of Service: 01/16/22 Interval History: No acute issues overnight. Daughter states back to baseline Review of Systems denies chest pain Denies nausea vomiting diarrhea Denies shortness of breath Denies fever chills Physical Exam Vital Signs: Vital Signs: Last Vital Signs Temp 98.4 F 01/16/22 11:23 Pulse 71 01/16/22 11:23 Resp 20 01/16/22 11:23 BP 142/70 H 01/16/22 11:23 Pulse Ox 96 01/16/22 11:23 BMI result Body Mass Index 25.4 Const: Other: no acute distress Resp: Other: clear to auscultation bilaterally no rales rhonchi wheezes Cardio: Other: no S4; positive S1-S2; no S3 murmurs rubs or gallops GI: Other: soft nontender nondistended n Extrem: Other: no edema bilaterally Objective Data Active Medications Acetaminophen (Acetaminophen 325 Mg Tablet) 650 mg PO Q6H PRN PRN Reason: Pain, Mild (Pain Scale 1-3) Last Admin: 01/16/22 10:34 Dose: 650 mg Documented by: CHE[place]NE Docusate Sodium (Docusate Sodium 100 Mg Capsule) 100 mg PO DAILY PRN PRN Reason: Constipation Heparin Sodium (Porcine) (Heparin Sodium,Porcine 5,000 Unit/Ml Vial) 5,000 unit SUBCUT Q12H [facility] Last Admin: 01/16/22 10:26 Dose: 5,000 unit Documented by: [place]NE Lactated Ringer's (Lr) 1,000 mls @ 100 mls/hr IVCONT .Q10H [facility] Last Admin: 01/16/22 06:19 Dose: 100 mls/hr Documented by: MINERVA Ceftriaxone Sodium 1 gm/ (Sodium Chloride) 50 mls @ 100 mls/hr IV Q24H [facility] Levetiracetam (Levetiracetam 250 Mg Tablet) 750 mg PO BID [facility] Last Admin: 01/16/22 10:26 Dose: 750 mg Documented by: CHEY[place]NE Levothyroxine Sodium (Levothyroxine Sodium 100 Mcg Tablet) 100 mcg PO DAILY@0600 [facility] Last Admin: 01/16/22 06:20 Dose: 100 mcg Documented by: MINERVA Ondansetron HCl (Ondansetron Hcl 4 Mg/2 Ml Vial) 4 mg IVPUSH Q8H PRN PRN Reason: Nausea and Vomiting Pharmacy Consult (Consult Rx Perform Med Rec) 1 each MISCELLANE ONCE PRN PRN Reason: Consult order Polyethylene Glycol (Polyethylene Glycol 3350 17 Gm Powd.Pack) 17 gm PO DAILY [facility] Last Admin: 01/16/22 10:27 Dose: 17 gm Documented by: CHEYENNE Labs CBC & Chem 7: 01/15/22 07:30 01/16/22 05:46 Labs: Laboratory Results - last 24 hr 01/16/22 01/16/22 05:46 08:40 Anion Gap 14 Estim Creat Clear Calc 10.9 Estimated GFR 11 Random Glucose 91 Calcium 9.2 Urine Creatinine 71.74 Urine Microalbumin 166.0 Microalb/Creat Ratio 231.3 Microbiology Microbiology Results: Microbiology 01/15/22 00:00 Urine Culture - Preliminary Urine clean catch - Urine hunt top Gram negative susan Assessment and Plan (1) UTI (urinary tract infection): Status: Acute Assessment and Plan: 76-year-old female with past medical history of hypertension, seizure, as well as dementia presents to the hospital with complaints of increased confusion found to have SUNDAY / UTI' 1. Acute kidney injury - responding to volume repletion - follow renals/divalents -keep I>O 2. UTI -start CTX awaiting ID requires ongoing hospitalization for volume repletion to correct acute kidney injury (2) Acute renal failure: Status: Acute Quality Stroke Does the patient have a stroke diagnosis?: No VTE Prior VTE?: No VTE Risk Level:: Medical - moderate - high VTE Device Contraindication: Treatment Not Indicated VTE Drug Contraindication: N/A - Med Ordered
[2022-01-16] MEDS: cefTRIAXone sodium 1 GM in 0.9 % Sodium Chloride 50 ML IV (15:13)
[2022-01-16 15:20] VITALS: BP 120/68; PULSE 62; RESP 18; TEMP 37.1; O2SAT 92
[2022-01-16 20:00] VITALS: BP 124/66; PULSE 66; RESP 17; TEMP 36.7; O2SAT 92
[2022-01-16 23:07] VITALS: BP 120/58; PULSE 59; RESP 18; TEMP 36.2; O2SAT 97
[2022-01-17 03:29] VITALS: BP 135/62; PULSE 52; RESP 18; TEMP 36.7; O2SAT 97
[2022-01-17] MEDS: Levothyroxine Sodium 100 MCG TABLET PO (06:29)
[2022-01-17 06:31] LABS: MANUAL DIFF FLAG NO
[2022-01-17 06:44] LABS: Basophils Percent Auto 0.5 % (0-2); Eosinophils Absolute Auto 0.1 X10*3/uL (0.0-0.4); Eosinophils Percent Auto 1.2 % (0-4); Hematocrit 33.2 % (37.0-47.0); Hemoglobin 10.9 g/dl (12.0-16.0); Imm Gran Abs Auto 0.02 X10*3/uL (0.00-0.03); Imm Gran Pct Auto 0.3 % (0.0-0.4); Lymphocytes Absolute Auto 2.1 X10*3/uL (1.2-4.9); Lymphocytes Percent Auto 28.2 % (20-40); Mean Corpuscular HGB Conc 32.8 g/dl (31.0-35.0); Mean Corpuscular Hemoglobin 26.2 pg (27.0-33.0); Mean Corpuscular Volume 79.8 fL (80.0-98.0); Mean Platelet Volume 11.2 fL (9.4-12.3); Monocytes Absolute Auto 0.9 X10*3/uL (0.1-1.2); Monocytes Percent Auto 12.8 % (2-11); Neutrophils Absolute Auto 4.2 x10*3/uL (2.0-8.3); Platelet Count 203 X10*3/uL (160-400); Red Blood Count 4.16 X10*6/uL (4.20-5.50); White Blood Count 7.3 X10*3/uL (4.8-10.8)
[2022-01-17 07:21] LABS: Alanine Aminotransferase 12 U/L (0-31); Albumin Level 3.5 g/dL (3.5-5.0); Alkaline Phosphatase 61 U/L (39-117); Anion Gap 14 (12-20); Aspartate Amino Transferase 15 U/L (5-31); Bilirubin Total 0.3 mg/dL (0.0-1.0); Blood Urea Nitrogen 35 mg/dL (9-16); Calcium 8.9 mg/dL (8.4-10.2); Carbon Dioxide 26 mmol/L (22-29); Chloride 107 mmol/L (96-108); Creatinine Clr Calc Pharmacy 13.4; Estimated Glomerular Filt Rate 14; Glucose Fasting 89 mg/dL (60-99); Sodium 144 mmol/L (135-145)
[2022-01-17 07:53] VITALS: BP 106/58; PULSE 53; RESP 18; TEMP 36.4; O2SAT 97
--- NOTE | 2022-01-17 08:16 | P.CDIC_ITS ---
CDI Concurrent Query Documentation Clarification: PHYSICIAN'S DOCUMENTATION REQUEST Date of Query: 01/17/22816 Patient Name: Silke Celeste Admit Date: 01/15/22 Dear Doctor, A review of the medical record indicates additional documentation may be needed. Please review below and update the documentation accordingly. Clinical Indicators: Risk Factors/Clinical Indicators/Treatments PMH: Dementia Per ED note: acute confusion and lethargic Based on the above, could you clarify in the Progress Notes which, if any of the following, is the most likely etiology of the confusion/altered mental status? * Dementia - indicate type of dementia, such as Alzheimer's, senile, vascular, Lewy body, etc. * Acute delirium - indicate known or suspected etiology, such as postoperative, due to narcotics or other drugs, etc. * Acute or subacute confusional state due to (specify known or suspected etiology) * Other etiology (please specify) * Unable to determine Use of terms such as suspected, likely, concern for, or probable (associated with a specific diagnosis that is being evaluated, monitored, or treated as if it exists) are acceptable and can be coded in the inpatient setting, when documented at the time of discharge. Thank you, Juliana Kinsey RN Extension: [phone] Please use your independent medical judgment in providing your response. THIS QUERY IS PART OF THE PERMANENT MEDICAL RECORD Provider Response: Other Other Diagnosis: unable to determine type of dementia
[2022-01-17] MEDS: levETIRAcetam 250 MG TABLET 750 MG PO (09:08)
[2022-01-17] MEDS: Heparin Sodium,Porcine 5,000 UNIT/ML VIAL 5000 UNIT SUBCUT (09:09)
--- NOTE | 2022-01-17 10:17 | P.PNNP_ITS ---
Subjective Subjective Date of Service: 01/17/22 Interval history: No acute issues overnight. Physical Exam Vital Signs: Vital Signs: Last Vital Signs Temp 97.6 F 01/17/22 07:53 Pulse 53 01/17/22 07:53 Resp 18 01/17/22 07:53 BP 106/58 L 01/17/22 07:53 Pulse Ox 97 01/17/22 07:53 O2 Del Method 01/17/22 07:53 BMI result Body Mass Index 25.4 Const: General: cooperative and no acute distress Orientation/consciousne ss: patient oriented x3 Eyes: General: appearance normal, both eyes and all related structures Resp: Effort & Inspection: normal respiratory effort Auscultation: clear to auscultation bilaterally Cardio: Rate: regular rate Rhythm: regular rhythm GI: Palpation (GI): Soft to palpation Auscultation: normal bowel sounds Skin: General skin exam: no rashes or lesions noted Neuro: General: patient oriented x3 Extrem: General: Yes normal to inspection and Yes no pedal edema Objective Data Labs CBC & Chem 7: 01/17/22 04:10 01/17/22 04:10 Labs: Laboratory Results - last 24 hr 01/17/22 01/17/22 04:10 04:10 WBC 7.3 RBC 4.16 L Hgb 10.9 L Hct 33.2 L MCV 79.8 L MCH 26.2 L MCHC 32.8 RDW 16.0 Plt Count 203 MPV 11.2 Immature Gran % (Auto) 0.3 Neut % (Auto) 57.0 Lymph % (Auto) 28.2 Martin % (Auto) 12.8 H Eos % (Auto) 1.2 Baso % (Auto) 0.5 Lymph # (Auto) 2.1 Martin # (Auto) 0.9 Eos # (Auto) 0.1 Baso # (Auto) 0.0 Abs Immat Gran (auto) 0.02 Absolute Neuts (auto) 4.2 Absolute Nucleated RBC 0.000 Nucleated RBC % (auto) 0.0 Sodium 144 Potassium 3.0 L Chloride 107 Carbon Dioxide 26 Anion Gap 14 BUN 35 H Creatinine 3.25 H Estim Creat Clear Calc 13.4 Estimated GFR 14 Fasting Glucose 89 Calcium 8.9 Total Bilirubin 0.3 AST 15 ALT 12 Alkaline Phosphatase 61 Total Protein 6.0 L Albumin 3.5 D Microbiology Microbiology Results: Microbiology 01/15/22 00:00 Urine clean catch - Urine hunt top Urine Culture - Final Escherichia coli Procedures Date of Service Date of Service: 01/17/22 Assessment & Plan Assessment and plan (1) Acute renal failure: Status: Acute Plan SUNDAY Most likely from dehydration/ATN with slow recovery Work up in progress No significant proteinuria No obstruction Cr improving with hydration Keep I > O Replace K orally Time Spent With Patient Time: Total time spent is greater than 50% in coordination of care (as documented) at patient's floor/unit and/or counseling patient: Progress Note: Quality Stroke Does the patient have a stroke diagnosis?: No
[2022-01-17 11:17] VITALS: BP 113/66; PULSE 61; RESP 18; TEMP 36.7; O2SAT 97
--- NOTE | 2022-01-17 11:47 | P.DS_ITS ---
DS: Providers Provider Date of Service: 01/17/22 Date of admission: 01/15/22 00:24 Date of discharge: 01/17/22 Primary care physician: Mckayla Salazar MD Consults: 01/15/22 08:02 Consult to Nephrology Routine Consulting Provider: Xavi Portillo Reason for consultation: sophia Has provider been notified: No 01/15/22 17:29 Consult to Infectious Diseases Routine Consulting Provider: Radha Parisi Reason for consultation: uti/bactermia Has provider been notified: No DS: Diagnosis Discharge Diagnosis (1) Acute renal failure: Status: Acute (2) UTI (urinary tract infection): Status: Acute DS: Summary Hospital Course Hospital Course: 76-year-old female with past medical history of hypertension, dementia, seizure disorder, chronic back pain who was brought into the hospital by her daughter for increased confusion, back pain, and low appetite for the past few days.? Patient herself denies having any weakness, but does report low oral intake as she does not have appetite.? She denies having any abdominal pain nausea or vomiting, no diarrhea constipation, no urinary symptoms.? No urinary dysuria urgency or frequency.? Patient reports no fever or chills.? Denies any chest pain shortness of breath.? No cough. ? On arrival to the ED patient hemodynamically stable with no significant abnormal vitals Labs are significant for WBC count of 12 and 9, BUN of 45, creatinine of 5.9 today with a baseline of 13 and 0.85 respectively ?UA positive for leukocyte Estrace as well as WBC ?Abdomen pelvic CT showed? no acute abnormalities, no obstructive uropathy, moderate-sized stool ball at the rectum, patient will be admitted for further management Hospital Course Patient admitted ; volume repletion instituted along with Renal consult. Renal felt this was ATN related to dehydration. Patient's was kept on IV fluids and creatinine is slowly responding. Discussed with Renal; patient can be discharged home to follow-up as an outpatient as she has a very involved family. patient did present with active urine sediment and subsequent urine culture grew E coli sensitive to ceftriaxone. She will be discharged on a course of oral Ceftin Time Spent with Patient Time attestation: Total time spent providing and/or coordinating discharge services: Discharge coordination time: Greater than 30 minutes Quality: Safe Use of Opioids Does Pt have an Active Cancer Diagnosis on the Problem List?: No Quality: Stroke Does the patient have a stroke diagnosis?: No Physical Exam Vital Signs: Vital Signs: Last Vital Signs Temp 98.1 F 01/17/22 11:17 Pulse 61 01/17/22 11:17 Resp 18 01/17/22 11:17 BP 113/66 01/17/22 11:17 Pulse Ox 97 01/17/22 11:17 O2 Del Method 01/17/22 11:17 BMI result Body Mass Index 25.4 Const: Other: no acute distress Resp: Other: clear to auscultation bilaterally no rales rhonchi wheezes Cardio: Other: no S4; positive S1-S2; no S3 murmurs rubs or gallops GI: Other: soft nontender nondistended n Extrem: Other: no edema bilaterally DS: Data Data Completed and Pending Labs on day of discharge: Laboratory Results - last 24 hr 01/17/22 01/17/22 04:10 04:10 WBC 7.3 RBC 4.16 L Hgb 10.9 L Hct 33.2 L MCV 79.8 L MCH 26.2 L MCHC 32.8 RDW 16.0 Plt Count 203 MPV 11.2 Immature Gran % (Auto) 0.3 Neut % (Auto) 57.0 Lymph % (Auto) 28.2 Mcdowell % (Auto) 12.8 H Eos % (Auto) 1.2 Baso % (Auto) 0.5 Lymph # (Auto) 2.1 Mcdowell # (Auto) 0.9 Eos # (Auto) 0.1 Baso # (Auto) 0.0 Abs Immat Gran (auto) 0.02 Absolute Neuts (auto) 4.2 Absolute Nucleated RBC 0.000 Nucleated RBC % (auto) 0.0 Sodium 144 Potassium 3.0 L Chloride 107 Carbon Dioxide 26 Anion Gap 14 BUN 35 H Creatinine 3.25 H Estim Creat Clear Calc 13.4 Estimated GFR 14 Fasting Glucose 89 Calcium 8.9 Total Bilirubin 0.3 AST 15 ALT 12 Alkaline Phosphatase 61 Total Protein 6.0 L Albumin 3.5 D Discharge Plan Discharge Patient Disposition: Home, Self-Care Discharge Diagnosis: UIT Ecoli Referrals: Mckayla Salazar MD [Primary Care Provider] - 1 Week Discharge Medications: New cefuroxime axetil 250 mg tablet 250 mg PO DAILY 7 Days Qty: 7 0RF Continued ondansetron 4 mg tablet,disintegrating 4 mg PO Q8H PRN (Reason: nausea and vomiting) Qty: 20 0RF donepezil 5 mg tablet 1 tab PO QPM levetiracetam 500 mg tablet 1.5 tab PO BID levothyroxine 100 mcg tablet 1 tab PO DAILY oxycodone-acetaminophen 5-325 mg tablet 1 tab PO DAILY lisinopril 40 mg tablet 1 tab PO DAILY rosuvastatin 40 mg tablet 1 tab PO BEDTIME hydrochlorothiazide 25 mg tablet 1 tab PO DAILY Discharge Orders: Discharge Order (Routine); Ordered 01/17/22 Ordered By: David Watkins Diet: advance to usual diet Activity on Discharge: As tolerated Stand Alone Forms: Patient Portal Discharge page Care Plan Goals: continue to encourage fluids. Health Concerns: Complete course of antibiotics as ordered Plan of Treatment: follow-up with your PCP / kidney doctor 1-2 weeks Assessment: see discharge summary
--- NOTE | 2022-01-17 12:16 | MHC.CM.PN ---
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
--- NOTE | 2022-01-17 12:18 | MHC.CM.PN ---
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
== END 2022-01-17 13:00 | disposition home or self-care (01) | DRG 689 ==
LOC: HO.ED 23:09 → HO.EDOVER 01-15 00:29 → HO.IMC 01-15 16:32
PROVIDERS: Internal Medicine; Admitting Provider Internal Medicine; Emergency Provider Internal Medicine; PCP Student in an Organized Health Care Education/Training Program; Visit Provider Hospitalist
DX: N39.0 Urinary tract infection, site not specified (principal); N17.0 Acute kidney failure with tubular necrosis; F03.90 Unspecified dementia, unspecified severity, without behavioral disturbance, psychotic disturbance, mood disturbance, and anxiety; E86.0 Dehydration; B96.20 Unspecified Escherichia coli [E. coli] as the cause of diseases classified elsewhere; I10 Essential (primary) hypertension; G40.909 Epilepsy, unspecified, not intractable, without status epilepticus; G89.29 Other chronic pain; Z20.822 Contact with and (suspected) exposure to COVID-19; Z88.6 Allergy status to analgesic agent; Z79.890 Hormone replacement therapy; Z79.899 Other long term (current) drug therapy
CPT/HCPCS: 36415; 72100; 74176; 76775; 80048; 80053; 81001; 82043; 82550; 85025; 87086; 87088; 87186; 87502; 87635; 96360; 99285; J0696

== ENCOUNTER 2023-10-04 21:37 | Emergency (ER) | payer OTHER, SELFPAY ==
--- NOTE | ~2023-10-04 | CT_ITS ---
EXAMINATION: CT ABDOMEN AND PELVIS WITHOUT CONTRAST CLINICAL INFORMATION: Left lower quadrant pain. COMPARISON: 01/14/2022 TECHNIQUE: Multidetector volumetric imaging was performed from the superior aspect of the liver through the pubic symphysis. Sagittal and coronal reformatted images were obtained on the technologist's workstation. This CT examination was performed using dose optimization techniques as appropriate, variously including the following: *Automated exposure control *Adjustment of mA and/or kV according to patient size (this includes techniques or standardized protocols for targeted exams where dose is matched to indication/reason for exam; i.e. extremities or head) *Use of iterative reconstruction technique DLP: 625 mGy-cm FINDINGS: LUNG BASES: There is mild atelectatic change at the lung bases. LIVER, GALLBLADDER, AND BILIARY TREE: The liver is normal in size, shape, and attenuation. No focal hepatic lesion or biliary ductal dilatation is present. There appears to be a single gallstone within a nondistended gallbladder. PANCREAS: Unremarkable. SPLEEN: Unremarkable. ADRENAL GLANDS: Unremarkable. KIDNEYS AND URETERS: There is a 2.3 cm cyst upper pole right kidney. There are adjacent 1 to 2 mm calculi upper pole left kidney. There is no hydronephrosis. BLADDER: Unremarkable. GASTROINTESTINAL TRACT: There is retained descending and transverse as well as rectal stool with rectal expansion up to 7.5 cm. ABDOMINAL WALL: No significant hernia is appreciated. LYMPH NODES: Normal. VASCULAR: Unremarkable. PELVIC VISCERA: Unremarkable. OSSEOUS STRUCTURES: There is degenerative change throughout the lumbar spine with right lateral listhesis L4 over L5 and moderate diffuse lumbar disc degenerative change. CT/CT abdomen pelvis wo IV con IMPRESSION: 1. Retained stool in the colon with rectal expansion up to 7.5 cm. 2. Nonobstructing left renal calculi. 3. Cholelithiasis. 4. Degenerative changes in the lumbar spine. Fleischner guidelines were followed.
[2023-10-04 21:52] VITALS: BP 160/91; PULSE 71; RESP 16; TEMP 36.5; O2SAT 100
--- NOTE | 2023-10-04 23:03 | ED_ITS ---
HPI - Abdominal Pain General Chief Complaint: Abdominal Pain Stated Complaint: ABD PAIN,NAUSEA Time Seen by Provider: 10/04/23 22:45 Source: patient Mode of arrival: ambulatory Limitations: no limitations History of Present Illness HPI narrative: Patient with history of dementia complaining of pain both in lower abdomen left lower side since afternoon today no nausea no vomiting no fever no chills no urinary symptoms patient moved small bowel movement normal earlier today Related Data Home Medications Medication Instructions Recorded Confirmed donepezil 5 mg tablet 1 tab PO QPM 01/15/22 01/15/22 hydrochlorothiazide 25 mg tablet 1 tab PO DAILY 01/15/22 01/15/22 levetiracetam 500 mg tablet 1.5 tab PO BID 01/15/22 01/15/22 levothyroxine 100 mcg tablet 1 tab PO DAILY 01/15/22 01/15/22 lisinopril 40 mg tablet 1 tab PO DAILY 01/15/22 01/15/22 oxycodone-acetaminophen 5 mg-325 1 tab PO DAILY 01/15/22 01/15/22 mg tablet rosuvastatin 40 mg tablet 1 tab PO BEDTIME 01/15/22 01/15/22 Previous Rx's Medication Instructions Recorded ondansetron 4 mg disintegrating 4 mg PO Q8H PRN nausea and 02/22/21 tablet vomiting #20 tabs cefuroxime axetil 250 mg tablet 250 mg PO DAILY 7 days #7 tabs 01/17/22 polyethylene glycol 3350 17 17 g PO DAILY #510 grams 10/05/23 gram/dose oral powder (Miralax) Allergies Allergy/AdvReac Type Severity Reaction Status Date / Time aspirin [ASPIRIN] Allergy Unknown hives Verified 10/04/23 21:52 Review of Systems Review of Systems Yes all other systems are reviewed and are negative [facility] Past Medical History Medical History Dementia HTN (hypertension) Seizures Surgical History H/O tubal ligation Family History Family History Other No family history of coronary artery disease Social History Social History Housing: Apartment Alcohol intake: never Patient Tobacco Use Status: Never used Tobacco Second Hand Smoke Exposure: No Advance Directives: No Advance Directives Information Provided: No service: No Current occupational status: retired Physical Exam ED Vital Signs: Vital Signs - 24 hr 10/04/23 21:52 Temperature 97.7 F Pulse Rate 71 Respiratory Rate 16 Blood Pressure 160/91 H Pulse Oximetry 100 Oxygen Delivery Method Room Air BMI result Body Mass Index 30.0 Appearance: Alert. Oriented X2. No acute distress. Eyes: No pallor or icterus ENT: Pharynx normal. Oral Mucosa moist Neck: Normal inspection. Neck supple. CVS: Normal heart rate and rhythm. Pulses normal. Respiratory: No respiratory distress. Equal air entry bilateral, no wheezing/rales/rhonchi Abdomen: Soft, deep tenderness left lower abdomen Bowel sounds are present, no mass palpable, no CVA tenderness rectum: Soft stool in the rectum Skin: Skin warm and dry. Normal skin color. Normal skin turgor. Extremities: No lower extremity edema. No calf tenderness Neuro: Oriented X 2. No motor deficit. Medical Decision Making Medical Decision Making [facility] Narrative: Patient nonspecific left lower quadrant pain CT scan negative for diverticulitis shows large amount of stool manual disimpaction was done patient after moving bowel, felt much better will discharge patient home Differential Diagnosis Differential Diagnoses: The differential diagnosis associated with the presentation includes Diverticulitis/UTI/constipation Lab Data [facility] Lab Attestation statement: I reviewed the patient's lab results. 10/04/23 23:33 10/04/23 23:33 Labs: Lab Results 10/04/23 10/04/23 Range/Units 23:33 23:39 WBC 9.1 (4.8-10.8) X10*3/uL RBC 4.74 (4.20-5.50) X10*6/uL Hgb 12.7 (12.0-16.0) g/dl Hct 39.1 (37.0-47.0) % MCV 82.5 (80.0-98.0) fL MCH 26.8 L (27.0-33.0) pg MCHC 32.5 (31.0-35.0) g/dl RDW 15.1 (11.0-16.0) % Plt Count 233 (160-400) X10*3/uL MPV 10.1 (9.4-12.3) fL Immature Gran % (Auto) 0.3 (0.0-0.4) % Neut % (Auto) 62.1 (45-73) % Lymph % (Auto) 27.0 (20-40) % Republic % (Auto) 9.4 (2-11) % Eos % (Auto) 0.8 (0-4) % Baso % (Auto) 0.4 (0-2) % Lymph # (Auto) 2.5 (1.2-4.9) X10*3/uL Republic # (Auto) 0.9 (0.1-1.2) X10*3/uL Eos # (Auto) 0.1 (0.0-0.4) X10*3/uL Baso # (Auto) 0.0 (0.0-0.2) X10*3/uL Abs Immat Gran (auto) 0.03 (0.00-0.03) X10*3/uL Absolute Neuts (auto) 5.7 (2.0-8.3) x10*3/uL Absolute Nucleated RBC 0.000 (0.0-0.012) X10*3/uL Nucleated RBC % (auto) 0.0 (0.0-0.2) /100WBC Sodium 144 (135-145) mmol/L Potassium 3.9 (3.3-5.1) mmol/L Chloride 106 (96-108) mmol/L Carbon Dioxide 28 (22-29) mmol/L Anion Gap 14 (12-20) BUN 27 H (9-16) mg/dL Creatinine 1.05 (0.5-1.4) mg/dL Estim Creat Clear Calc 41.9 Estimated GFR 50 Random Glucose 95 (60-115) mg/dL Calcium 10.2 D (8.4-10.2) mg/dL Total Bilirubin 0.3 (0.0-1.0) mg/dL AST 17 (5-31) U/L ALT 9 (0-31) U/L Alkaline Phosphatase 83 (39-117) U/L Total Protein 7.6 (6.5-8.0) g/dL Albumin 4.4 (3.5-5.0) g/dL Urine Color Yellow Urine Appearance Clear Urine pH 7.0 (5.0-9.0) Ur Specific [place] 1.015 (1.005-1.025) Urine Protein Negative (Neg-Trace) mg/dL Urine Glucose (UA) Negative (Negative) mg/dL Urine Ketones Negative (Negative) mg/dL Urine Blood Negative (Negative) Urine Nitrite Negative (Negative) Ur Leukocyte Esterase Negative (Negative) Independent Interpretation I performed an independent interpretation of an: CT Scan Radiology Impression Discussion of test interpretation with radiology: I have reviewed the radiologist's reading. Radiologist Impression: CT/CT abdomen pelvis wo IV con IMPRESSION: 1. Retained stool in the colon with rectal expansion up to 7.5 cm. 2. Nonobstructing left renal calculi. 3. Cholelithiasis. 4. Degenerative changes in the lumbar spine. Fleischner guidelines were followed. Medications Administered Discontinued Medications Generic Name Dose Route Start Last Admin Trade Name Freq PRN Reason Stop Dose Admin Sodium Chloride 1,000 mls @ 999 mls/hr 10/04/23 23:05 10/05/23 00:16 Ns IV 10/05/23 00:05 999 mls/hr .Q1H1M ONE Administration Morphine Sulfate 4 mg 10/04/23 23:05 10/05/23 00:15 Morphine Sulfate 4 Mg/Ml Cartridge IVPUSH 10/04/23 23:06 4 mg ONCE ONE Administration Protocol Ondansetron HCl 4 mg 10/04/23 23:05 10/05/23 00:15 Ondansetron Hcl 4 Mg/2 Ml Vial IVPUSH 10/04/23 23:06 4 mg ONCE ONE Administration Discharge Plan Discharge Clinical Impression: Constipation Patient Disposition: Home, Self-Care Instructions: Constipation (ED) Additional Instructions: Drink plenty of fluids Take MiraLax /prune juice daily Follow with PCP if not better Prescriptions: New polyethylene glycol 3350 [Miralax] 17 gram/dose powder 17 g PO DAILY Qty: 510 0RF No Action ondansetron 4 mg tablet,disintegrating 4 mg PO Q8H PRN (Reason: nausea and vomiting) Qty: 20 0RF donepezil 5 mg tablet 1 tab PO QPM levetiracetam 500 mg tablet 1.5 tab PO BID levothyroxine 100 mcg tablet 1 tab PO DAILY oxycodone-acetaminophen 5-325 mg tablet 1 tab PO DAILY lisinopril 40 mg tablet 1 tab PO DAILY rosuvastatin 40 mg tablet 1 tab PO BEDTIME hydrochlorothiazide 25 mg tablet 1 tab PO DAILY cefuroxime axetil 250 mg tablet 250 mg PO DAILY 7 Days Qty: 7 0RF
[2023-10-04 23:40] LABS: Basophils Percent Auto 0.4 % (0-2); Eosinophils Absolute Auto 0.1 X10*3/uL (0.0-0.4); Eosinophils Percent Auto 0.8 % (0-4); Hematocrit 39.1 % (37.0-47.0); Hemoglobin 12.7 g/dl (12.0-16.0); Imm Gran Abs Auto 0.03 X10*3/uL (0.00-0.03); Imm Gran Pct Auto 0.3 % (0.0-0.4); Lymphocytes Absolute Auto 2.5 X10*3/uL (1.2-4.9); MANUAL DIFF FLAG NO; Mean Corpuscular HGB Conc 32.5 g/dl (31.0-35.0); Mean Corpuscular Hemoglobin 26.8 pg (27.0-33.0); Mean Corpuscular Volume 82.5 fL (80.0-98.0); Mean Platelet Volume 10.1 fL (9.4-12.3); Monocytes Absolute Auto 0.9 X10*3/uL (0.1-1.2); Monocytes Percent Auto 9.4 % (2-11); Neutrophils Absolute Auto 5.7 x10*3/uL (2.0-8.3); Neutrophils Percent Auto 62.1 % (45-73); Platelet Count 233 X10*3/uL (160-400); Red Blood Count 4.74 X10*6/uL (4.20-5.50); Red Cell Distribution Width 15.1 % (11.0-16.0); White Blood Count 9.1 X10*3/uL (4.8-10.8)
[2023-10-04 23:53] LABS: Appearance Urine Clear; Color Urine Yellow; Glucose Urine UA Negative (Negative); Leukocyte Esterase Urine Negative (Negative); Nitrite Urine Negative (Negative); Specific Gravity - Urine 1.015 (1.005-1.025); Urine Blood Negative (Negative); Urine Ketones Negative (Negative); Urine Protein Negative (Neg-Trace)
[2023-10-04 23:56] LABS: Alanine Aminotransferase 9 U/L (0-31); Albumin Level 4.4 g/dL (3.5-5.0); Alkaline Phosphatase 83 U/L (39-117); Anion Gap 14 (12-20); Aspartate Amino Transferase 17 U/L (5-31); Bilirubin Total 0.3 mg/dL (0.0-1.0); Blood Urea Nitrogen 27 mg/dL (9-16); Calcium 10.2 mg/dL (8.4-10.2); Carbon Dioxide 28 mmol/L (22-29); Chloride 106 mmol/L (96-108); Creatinine Clr Calc Pharmacy 41.9; Estimated Glomerular Filt Rate 50; Glucose Random 95 mg/dL (60-115); Potassium 3.9 mmol/L (3.3-5.1); Sodium 144 mmol/L (135-145); Total Protein 7.6 g/dL (6.5-8.0)
[2023-10-05] MEDS: Morphine Sulfate 4 MG/ML CARTRIDGE IVPUSH (00:15)
[2023-10-05] MEDS: ondansetron HCL 4 MG/2 ML VIAL IVPUSH (00:15)
[2023-10-05] MEDS: 0.9 % Sodium Chloride 1,000 ML 999 ML IV (00:16)
--- NOTE | 2023-10-05 00:24 | PC.NURSE ---
Pt medicated per mar. Daughter remains at bedside. Plan of care ongoing.
[2023-10-05] MEDS: Milk of Magnesia 30 ML ORAL.SUSP PO (02:12)
[2023-10-05 02:15] VITALS: BP 143/86; PULSE 76; RESP 18; TEMP 36.4; O2SAT 100
== END 2023-10-05 02:21 | disposition home or self-care (01) ==
PROVIDERS: Emergency Provider Internal Medicine
DX: K59.00 Constipation, unspecified (principal); R10.32 Left lower quadrant pain; I10 Essential (primary) hypertension; R56.9 Unspecified convulsions; F03.90 Unspecified dementia, unspecified severity, without behavioral disturbance, psychotic disturbance, mood disturbance, and anxiety
CPT/HCPCS: 36415; 74176; 80053; 81003; 85025; 96361; 96374; 96375; 99284; J2270; J2405

== ENCOUNTER 2024-06-18 09:09 | Outpatient (REF) | payer OTHER, SELFPAY ==
[2024-06-18 15:22] LABS: Alanine Aminotransferase 13 U/L (0-31); Albumin Level 4.3 g/dL (3.5-5.0); Alkaline Phosphatase 76 U/L (39-117); Anion Gap 13 (12-20); Aspartate Amino Transferase 27 U/L (5-31); Bilirubin Direct 0.2 mg/dL (0.0-0.5); Bilirubin Total 0.5 mg/dL (0.0-1.0); Blood Urea Nitrogen 24 mg/dL (9-16); Calcium 10.1 mg/dL (8.4-10.2); Carbon Dioxide 28 mmol/L (22-29); Chloride 106 mmol/L (96-108); Cholesterol 131 mg/dL (<200); Estimated Glomerular Filt Rate > 60; Glucose Random 92 mg/dL (60-115); HDL Cholesterol 48 mg/dL (>40); LDL Cholesterol Calculated 67 mg/dL (<100); Potassium 3.1 mmol/L (3.3-5.1); Sodium 144 mmol/L (135-145); Total Protein 7.3 g/dL (6.5-8.0); Triglycerides 83 mg/dL (<150)
== END 2024-06-18 09:10 | disposition home or self-care (01) ==
LOC: HO.CHCLDS 09:09
PROVIDERS: Visit Provider Student in an Organized Health Care Education/Training Program
DX: I10 Essential (primary) hypertension (principal); E78.00 Pure hypercholesterolemia, unspecified
CPT/HCPCS: 36415; 80048; 80061; 80076

== ENCOUNTER 2024-07-27 08:25 | Outpatient (REF) | payer OTHER, SELFPAY | END 2024-07-27 08:26 | disposition home or self-care (01) | LOC: HO.HOSX 08:25 | PROVIDERS: Visit Provider Physician Assistant | DX: M25.562 Pain in left knee (principal); M17.11 Unilateral primary osteoarthritis, right knee | CPT/HCPCS: 20610; 73560; 73562; 99202; J1010; J2003 ==

== ENCOUNTER 2024-07-27 09:47 | Outpatient (AMB) | payer OTHER, SELFPAY ==
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
[2024-07-27 10:15] VITALS: BMI 29.9
== END 2024-07-27 10:37 | disposition home or self-care (01) ==
PROVIDERS: Visit Provider Physician Assistant
DX: M17.11 Unilateral primary osteoarthritis, right knee (principal)
CPT/HCPCS: 20610; 99203

== ENCOUNTER 2024-12-31 10:05 | Outpatient (REF) | payer OTHER, SELFPAY ==
--- OUTSIDE RECORDS SUMMARY | 2024-12-31 10:26 | XMS_ITS | Encounter Summary ---
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 Name Role Phone Mckayla Salazar MD Primary Care Provider [phone] Encounter Details Date Type Department Care Team ([facility] st Contact Info) Description 11/27/2023 Orders Only [facility] [address], [place] [phone] Mckayla Salazar MD [address] [place] [address] Social History Tobacco Use Types Packs/Day Years Used Date Smoking Tobacco: Never Smokeless Tobacco: Never Alcohol Use Standard Drinks/Week Comments Never 0 (1 standard drink = 0.6 oz pur e alcohol) Alcohol Answer Date Recorded Frequency of Alcohol Consumption Not on file 06/12/2023 Average Number of Drinks Not on file 023 Frequency of Binge Drinking Not on file 08/2022 Score 0 06/12/2023 Depression Answer Date Recorded Patient Health Questionnaire-9 Score 0 06/12/2023 Patient Health Questionnaire-9 Score 0 06/12/2023 Last PHQ-9: Questionnaire Data Not on file 1 08/12/2022 Housing Stability Answer Date Recorded What is your housing situation today? I have manju bentley 06/12/[address] you li ve. Do you have problems with any of the following? None of the above 06/12/2023 Food Insecurity Answer Date Recorded Within the past 12 months, y ou worried that your food would run out before you got money to buy more: Never True 06/12/2023 Within the past 12 months,th e food you bought just didn't last and you didn't have enough money to get more: Never True 08/2022 Transportation Answer Date Recorded In the past 12 months, has l ack of transportation kept you from medical appts, meetings, work or from getting things needed for daily living? No 06/12/2023 Utilities Answer Date Recorded In the past 12 months, has t he electric, gas, oil or water company threatened to shut off services in your home? No 06/12/2023 Depression Answer Date Recorded Patient Health Questionnaire-2 Score 0 06/12/2023 Comments Unknown Sex and Gender Information Value Date Recorded Sex Assigned at Female 06/11/2022 10:14 AM EDT Legal Sex Female 10:14 AM EDT Gender Identity Female 06/11/2022 10:14 AM EDT Sexual Orientation Choose not to disclose 2021 10:14 AM EDT documented as of this encounter Plan of Treatment Upcoming Encounters Date Type Department Care Team ([facility] st Contact Info) Description 03/15/2025 10:30 AM EDT Telemedicine [facility] [address] [place] [address] Ileana Rodriguez, RN [address] [place] [address] documented as of this encounter Visit Diagnoses Not on filedocumented in this encounter Additional Health Concerns Assessment Noted Time PHQ-9 Depression Total Score: 0 06/12/20 23 11:25 AM EDT documented as of this encounter Care Teams Black Top Spreader Machine Operator Relationship Specialty Start Date End Date Mckayla Salazar MD [address] [place] [phone] PCP - General Family Medicine 01/26/20 documented as of this encounter
--- OUTSIDE RECORDS SUMMARY | 2024-12-31 10:26 | XMS_ITS | Clinical Summary ---
Author Organization [employer] Address [address] [place] [address] [address] [address] Care Team Providers Care Record Changer Assembler Name Role Phone Mckayla Salazar MD Primary Care Provider [phone] Allergies Active Allergy Reactions Criticality Noted Date Comments Acetaminophen 06/18/2024 Aspirin Hives 08/15/2022 Medications Calcium Carbonate-Vitamin D 600-5 MG-MCG tablet Take 1 tablet by mouth. 014 Active cyclobenzaprine (Flexeril) 5 MG tablet Take 5 mg by mouth. 022 Active famotidine (Pepcid) 20 MG tablet Take 20 mg by mouth. 022 Active memantine (Namenda) 10 MG tablet Take 1 tablet by mouth every 12 (twelve) hours. 022 Active Blood Pressure kit Check blood pressure daily 1 kit 023 Active naloxone (Narcan) 4 mg/0.1 mL nasal spray Administer into affected nostril(s). 022 Active levothyroxine (Synthroid, Levoxyl) 100 MCG tablet Take 1 tablet (100 mcg) by mouth before breakfast. 30 tablet 11 024 2024 Active hydroCHLOROthiazi de (HYDRODiuril) 25 MG tablet TAKE 1 TABLET BY MOUTH EVERY DAY IN THE MORNING 90 tablet 3 024 Active hydrALAZINE (Apresoline) 25 MG tabletIndications :Primary hypertension TAKE 1 TABLET BY MOUTH EVERY DAY IN THE MORNING 90 tablet 3 024 Active rosuvastatin (Crestor) 40 MG tablet TAKE 1 TABLET BY MOUTH EVERY DAY IN THE MORNING 90 tablet 2 024 Active lisinopril 40 MG tablet TAKE 1 TABLET BY MOUTH EVERY DAY 90 tablet 3 025 Active hydrOXYzine pamoate (Vistaril) 25 MG capsuleIndication s:Primary osteoarthritis involving multiple joints TAKE 1 CAPSULE (25 MG) BY MOUTH 2 TIMES DAILY. 180 capsule 1 025 2024 Active traZODone (Desyrel) 50 MG tablet TAKE 1/2 TABLET (25 MG) BY MOUTH AT BEDTIME. 45 tablet 3 025 Active levETIRAcetam (Keppra) 500 MG tablet TAKE 1 AND 1/2 TABLETS BY MOUTH TWICE A DAY 270 tablet 1 025 Active oxyCODONE-acetami nophen (Percocet) 5-325 MG tabletIndications :Primary osteoarthritis involving multiple joints Take 1 tablet by mouth if needed each day for severe pain. 30 tablet 025 Active mirtazapine (Remeron) 7.5 MG tablet Take 1 tablet by mouth at bedtime. Active donepezil (Aricept) 10 MG tablet Take 1 tablet (10 mg) by mouth at bedtime. 30 tablet 11 024 2024 Discontinued levETIRAcetam (Keppra) 500 MG tablet TAKE 1 AND 1/2 TABLETS BY MOUTH TWICE A DAY 270 tablet 1 024 2024 Discontinued(R eorder (will not trigger notification to Pharmacy)) oxyCODONE-acetami nophen (Percocet) 5-325 MG tabletIndications :Primary osteoarthritis involving multiple joints Take 1 tablet by mouth if needed each day for severe pain. 30 tablet 025 2024 Discontinued(R eorder (will not trigger notification to Pharmacy)) Active Problems Problem Noted Date Diagnosed Date Moderate vascular dementia 12/31/2024 Long-term current use of opiate analgesic 2024 Anxiety 06/18/2024 Benign neoplasm of meninges 06/18/2024 Depressive disorder 06/18/2024 Seizure 06/18/2024 Acquired hypothyroidism 06/12/2023 06/12/20 Chronic constipation 2018 Mood disorder 2018 Osteopenia determined by x-ray 2018 Primary osteoarthritis involving multiple joints 2018 Scoliosis deformity of spine 2018 Gastroesophageal reflux disease 05/01/2013 06/12/2023 Hyperlipidemia 05/01/2013 06/12/2023 Hypertensive disorder 05/01/2013 06/12/2023 Seizure disorder 05/01/2013 06/12/2023 Encounters Date Type Department Care Team Description 12/31/2024 9:00 AM EDT Office Visit [facility] [address] [place] [address] Mckayla Salazar MD Primary hypertension (Primary Dx); Acquired hypothyroidism; 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 (CMS/HCC); Unsteady gait; Chronic pain of right knee 12/31/2024 Travel 12/14/2024 11:00 AM EDT Telemedicine [facility] [address] [place] [address] Ileana Rodriguez RN Long-term current use of opiate analgesic 12/14/2024 Refill [facility] [address] [place] [address] Ileana Rodriguez RN Primary osteoarthritis involving multiple joints 12/14/2024 Travel 12/11/2024 Refill [facility] [address] [place] [address] Mckayla Salazar MD 11/16/2024 Refill [facility] MEDICINE [address] [place] [address] Mckayla Salazar MD Primary osteoarthritis involving multiple joints 10/12/2024 Refill [facility] [address] [place] [address] Mckayla Salazar MD Primary osteoarthritis involving multiple joints 10/04/2024 Refill [facility] [address] [place] [address] Mckayla Salazar MD from Last 3 Months Immunizations Immunization Administration Dates Next Due Influenza High-dose Quadrivalent Preservative Fr ee 06/24/2020 Influenza injectable quadriv alent IIV4 with preservative 05/18/2016 Influenza injectable quadrivalent preservative f ree 09/05/2015 Influenza, High Dose Seasonal, Preservative Free 06/18/2024 Influenza, IIV3, injectable 05/11/2010 Pneumococcal Conjugate PCV 13 05/18/2016 Pneumococcal Polysaccharide PPSV23 02/01/2006 Tdap 06/24/2020 Social History Tobacco Use Types Packs/Day Years Used Date Smoking Tobacco: Never Smokeless Tobacco: Never Tobacco Cessation:Counseling Given: Not Answered Alcohol Use Standard Drinks/Week Comments Never 0 (1 standard drink = 0.6 oz pur e alcohol) Alcohol Answer Date Recorded Frequency of Alcohol Consumption Not on file 06/12/2023 Average Number of Drinks Not on file 023 Frequency of Binge Drinking Not on file 08/2022 Score 0 06/12/2023 Depression Answer Date Recorded Patient Health Questionnaire-9 Score 2 06/18/2024 Patient Health Questionnaire-9 Score 2 06/18/2024 Last PHQ-9: Questionnaire Data Not on file 1 08/18/2023 Housing Stability Answer Date Recorded What is your housing situation today? I have manju bentley 06/18/[address] you li ve. Do you have problems with any of the following? None of the above 06/18/2024 Food Insecurity Answer Date Recorded Within the past 12 months, y ou worried that your food would run out before you got money to buy more: Never True 06/18/2024 Within the past 12 months,th e food you bought just didn't last and you didn't have enough money to get more: Never True 02/2024 Transportation Answer Date Recorded In the past 12 months, has l ack of transportation kept you from medical appts, meetings, work or from getting things needed for daily living? No 06/18/2024 Utilities Answer Date Recorded In the past 12 months, has t he electric, gas, oil or water company threatened to shut off services in your home? No 06/18/2024 Depression Answer Date Recorded Patient Health Questionnaire-2 Score 1 06/18/2024 Internet Access Answer Date Recorded Internet Access Q1 Yes 06/18/2024 Internet Access Q2 Not on file 06/18/2024 Comments Unknown Sex and Gender Information Value Date Recorded Sex Assigned at Female 06/11/2022 10:14 AM EDT Legal Sex Female 10:14 AM EDT Gender Identity Female 06/11/2022 10:14 AM EDT Sexual Orientation Choose not to disclose 2021 10:14 AM EDT Last Filed Vital Signs Vital Sign Reading Time Taken Comments Blood Pressure 121/76 12/31/2024 9:08 AM EDT Pulse 60 12/31/2024 9:08 AM EDT Temperature 36.4 ??C (97.5 ??F) 12/31/2024 9:08 AM ED T Respiratory Rate 16 12/31/2024 9:08 AM EDT Oxygen Saturation 97% 12/31/2024 9:08 AM EDT Inhaled Oxygen Concentration - - Weight 72.1 kg (159 lb) 12/31/2024 9:08 AM EDT Height 154.9 cm (5' 1 ) 12/31/2024 9:08 AM EDT Body Mass Index 30.04 12/31/2024 9:08 AM EDT Plan of Treatment Upcoming Encounters Date Type Department Care Team ([facility] st Contact Info) Description 03/15/2025 10:30 AM EDT Telemedicine [facility] [address] [place] [address] Ileana Rodriguez, RN [address] [place] [address] Health Maintenance Due Date Last Done Comments Alcohol/Substance Use Screening 1957 Zoster Vaccines (1 of 2) 1993 RSV Patients and Patients Aged 60 years or older (1 - 1-dose 75+ series) 2018 Pneumococcal Vaccine: 50+ Years (3 of 3 - PCV20 or PCV21) 05/18/2021 05/18/2016, 02/01/2006 COVID-19 Vaccine (3 - season) 2024 10/27/2020, 09/29/2020 Tobacco Screening 06/12/2024 06/12/2023 Depression Screening 06/18/2025 06/18/2024, 06/18/20 24 SDOH Screening 06/18/2025 06/18/2024 Lipid Panel 06/18/2029 06/18/2024, 05/2 01/2022, 05/17/2021 DTaP/Tdap/Td Vaccines (2 - Td or Tdap) 06/24/2030 06/24/2020 Influenza Vaccine Completed 06/18/2024, , 05/18/2016, Additional history exists HIB Vaccines Aged Out No longer eligi ble based on patient's age to complete this topic HPV Vaccines Aged Out No longer eligi ble based on patient's age to complete this topic Hepatitis A Vaccines Aged Out No long er eligible based on patient's age to complete this topic Hepatitis B Vaccines Aged Out No long er eligible based on patient's age to complete this topic IPV Vaccines Aged Out No longer eligi ble based on patient's age to complete this topic Meningococcal B Vaccine Aged Out No l onger eligible based on patient's age to complete this topic Meningococcal Vaccine Aged Out No gustavo lenka eligible based on patient's age to complete this topic RSV under 20 months Aged Out No longe r eligible based on patient's age to complete this topic Rotavirus Vaccines Aged Out No longer eligible based on patient's age to complete this topic Procedures Procedure Name Priority Date/Time Associated Diagnosis Comments LIPID PANEL, STANDARD Routine 06/18/2024 9:10 AM EST Primary hypertension Pure hypercholesterolemia from Last 3 Months or Most Recently Relevant to Health Maintenance Results * Lipid Panel, Standard (06/18/2024 9:10 AM EST) Triglycerides 83 <150 mg/dL [facility] Comment:Desirable Triglyceri de: less than 150 mg/dLBorderline High Triglyceride 150-199 mg/dLHigh Triglyceride: 200-499 mg/dLVery High Triglyceride: greater than or equal to 5OO mg/dL Cholesterol 131 <200 mg/dL [facility] Comment:Desirable Cholestero l: less than 200 mg/dLBorderline High Cholesterol: 200-239 mg/dLHigh Cholesterol: greater than 239 mg/dL LDL Cholesterol Calculated 67 <100 mg/dL [facility] Comment:Desirable LDL: less than 100 mg/dLNear Optimal/Above Optimal LDL: 110- 129 mg/dLBorderline High LDL: 130-159 mg/dLHigh LDL: 160-189 mg/dLVery High LDL: greater than or equal to 190 mg/dL HDL Cholesterol 48 >40 mg/dL [facility] Comment:Desirable HDL: great er than 40 mg/dL Note: This HDL assay may give artificially low results in patients with liver disease. Blood Venous blood specimen / Unknown 06/18/2024 9:10 AM EST 06/18/2024 2:50 PM EST Mckayla Salazar MD LAB BLOOD ORDERABLES Final Resul t [facility] [address] [place] [address] [phone] from Last 3 Months or Most Recently Relevant to Health Maintenance Insurance [facility] INTERMEDIATE OPTIONS (O D-SNP) Care Teams Record Changer Assembler Relationship Specialty Start Date End Date Mckayla Salazar MD [address] [place] [id number] PCP - General Family Medicine 01/26/20
--- OUTSIDE RECORDS SUMMARY | 2024-12-31 10:26 | XMS_ITS | Encounter Summary ---
Author Organization [employer] Address [address] [place] [address] Care Team Providers Care Community Service Officer Name Role Phone Mckayla Salazar MD Primary Care Provider [phone] Encounter Details Date Type Department Care Team (Latest Contact Info) Description 01/31/2021 Abstract [facility] CON[facility] Dental, Provider, DDS Social History Tobacco Use Types Packs/Day Years Used Date Smoking Tobacco: Never Assessed Comments Unknown Sex and Gender Information Value Date Recorded Sex Assigned at Female 06/11/2022 10:14 AM EDT Legal Sex Female 10:14 AM EDT Gender Identity Female 06/11/2022 10:14 AM EDT Sexual Orientation Choose not to disclose 2021 10:14 AM EDT documented as of this encounter Plan of Treatment Upcoming Encounters Date Type Department Care Team (Late st Contact Info) Description 03/15/2025 10:30 AM EDT Telemedicine [facility] [address] [place] [address] Ileana Rodriguez, DORETHA [address] [place] [address] documented as of this encounter Visit Diagnoses Not on filedocumented in this encounter Care Teams Community Service Officer Relationship Specialty Start Date End Date Mckayla Salazar MD [address] [place] [id number] PCP - General Family Medicine 01/26/20 documented as of this encounter
--- OUTSIDE RECORDS SUMMARY | 2024-12-31 10:26 | XMS_ITS | Encounter Summary ---
Author Organization [employer] Address [address] [place] [address] Care Team Providers Care Shoelace Tipping Machine Operator Name Role Phone Mckayla Salazar MD Primary Care Provider [phone] Reason for Referral * Consultation (Urgent) - Pending Review Specialty Diagnoses / Procedures Referred By Angela orourke Referred To Contact Orthopaedic Surgery Diagnoses Chronic pain of right knee Mckayla Salazar MD [address] [place] [address] Phone: tel: fax: Referral ID Status Reason Start Date Expiration Date Visits Requested Visits Authorized [id number] Pending Review Specialty Services Required 12/31/2024 12/31/2025 1 1 Reason for Visit * Reason Comments Follow-up Adult care Encounter Details Date Type Department Care Team ([facility] st Contact Info) Description 12/31/2024 9:00 AM EDT Office Visit [facility] [address] [place] [address] Mckayla Salazar MD [address] [place] [address] Primary hypertension (Primary Dx); Acquired hypothyroidism; 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 female who presents for Follow-up (Adult care ). Knee Pain There was no injury mechanism. The pain is present in the right knee. The quality of the pain is described as aching. The pain is at a severity of 6/10. The pain is severe. The pain has been Constantsince onset. Associated symptoms include an inability to bear weight. The symptoms are aggravated by movement and weight bearing. She has tried acetaminophen for the symptoms. The treatment provided no relief. Review of Systems Constitutional: Negative. Respiratory: Negative. Negative for shortness of breath. Cardiovascular: Negative for chest pain and palpitations. Gastrointestinal: Negative. Genitourinary: Negative. Musculoskeletal: Negative for neck pain. Neurological: Negative for headaches. Objective Physical Exam Constitutional: Appearance: Normal appearance. Cardiovascular: Rate and Rhythm: Normal rate and regular rhythm. Pulses: Normal pulses. Heart sounds: Normal heart sounds. Pulmonary: Effort: Pulmonary effort is normal. Abdominal: General: Abdomen is flat. Neurological: Mental Status: She is alert. Assessment/Plan Diagnoses and all orders for this visit: Primary hypertension Comments: Well controlled Maintain a low-sodium diet (less than 2 grams per day). Maintain a regular cardiovascular exercise program. Advised to maintain a low-fat, low-cholesterol diet. Counseled regarding importance of weight loss. Counseled re: potential co-morbidities including cardiovascular disease. 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 (CMS/HCC) Comments: pt will benefit from more hours ( atleast 50hrs ) of help at home due to worsening symptoms Unsteady gait Comments: Pt will benefit from Foldable wheel chairs for appointments and to prevent falls Pt will also benefit from lift chair for better ADLs Chronic pain of right knee Comments: Ibuprofen 800 as needed for pain referred to Ortho Orders: - Referral to Orthopaedic Surgery; Future documented in this encounter Plan of Treatment Upcoming Encounters Date Type Department Care Team (Late st Contact Info) Description 03/15/2025 10:30 AM EDT Telemedicine [facility] [address] [place] [address] Ileana Rodriguez, DORETHA [address] [place] [address] Scheduled Orders Name Type Priority Associated Diagnoses Orde r Schedule Basic Metabolic Panel Lab Routine Primary hypertension Expected: 12/31/2024 (Approximate), Expires: 12/31/2025 Lipid Panel, Standard Lab Routine Primary hypertension Expected: 12/31/2024 (Approximate), Expires: 12/31/2025 Hepatic Function Panel Lab Routine Primary hypertension Expected: 12/31/2024 (Approximate), Expires: 12/31/2025 TSH with Reflex to Free T4 Lab Routine Acquired hypothyroidism Expected: 12/31/2024 (Approximate), Expires: 12/31/2025 Scheduled Referrals Name Type Priority Associated Diagnoses Order Schedule Referral to Orthopaedic Surgery Outpatient Referral Urgent Chronic pain of right knee Expected: 12/31/2024 (Approximate), Expires: 12/31/2025 documented as of this encounter Visit Diagnoses Diagnosis Primary hypertension- Primary Unspecified essential hypertension Acquired hypothyroidism Unspecified hypothyroidism 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
--- OUTSIDE RECORDS SUMMARY | 2024-12-31 10:26 | XMS_ITS | Encounter Summary ---
Author Organization [employer] Address [address] [place] [address] Care Team Providers Care Manager Financial Systems Name Role Phone Mckayla Salazar MD Primary Care Provider [phone] Reason for Visit * Reason Onset Date Comments Med Refill 04/30/2024 Encounter Details Date Type Department Care Team ([facility] st Contact Info) Description 04/30/2024 Telephone [facility] [address] [place] [address] Mckayla Salazar MD [address] [place] [id number] Med Refill Social History Tobacco Use Types Packs/Day Years [...] AM EDT documented as of this encounter Miscellaneous Notes * Telephone Encounter - Adriano Bliss - 04/30/2024 8:49 AM EDT TC from pt requesting medication refill. Medications needing refill : oxyCODONE-acetaminophen (Percocet) 5-325 MG tablet To be sent to: [facility]/pharmacy #[id number] documented in this encounter Plan of Treatment Upcoming Encounters Date Type Department Care Team ([facility] st Contact Info) Description 03/15/2025 10:30 AM EDT Telemedicine [facility] [address] [place] [address] Ileana Rodriguez, DORETHA [address] [place] [address] documented as of this encounter Visit Diagnoses Not on filedocumented in this encounter Additional Health Concerns Assessment Noted Time PHQ-9 Depression Total Score: 0 06/12/20 23 11:25 AM EDT documented as of this encounter Care Teams Manager Financial Systems Relationship Specialty Start Date End Date Mckayla Salazar MD [address] [place] [id number] PCP - General Family Medicine 01/26/20 documented as of this encounter
--- OUTSIDE RECORDS SUMMARY | 2024-12-31 10:26 | XMS_ITS | Data Portability ---
Author Organization [employer] [place] [facility] [place] Address [address] [place] [id number] Care Team Providers Care Fnps Name Role Phone HIM [facility] OTHER [facility] Primary Care Provider Assessment Encounter Date Assessment Date Assessment LastModified by Organization Details LastModified Time 04/22/2024 04/22/2024 I have reviewed and agree with the assessment and plan as documented by the automobile contract clerk. I provided real-time medical direction for this encounter and was immediately available to provide additional phone-based assistance as needed. 79F presenting with 3-4 days of urinary symptoms, no fever, slight increase in confusion. Normal appetite, no fever. Vitals at baseline, pt otherwise well appearing with no distress. Slight confusion noted. U/A positive. Allergy to aspirin. Was on cefpodoxime in the past with good effect. Will Rx abx and send urine for culture. Red flags and return precautions discussed. paysola Not available 04/22/2024 19:23:36 10/10/2024 10/10/2024 I provided real -time medical direction via phone for this encounter and was available for additional phone-based assistance as needed. I have reviewed and agree with the Assessment and Plan as documented by the B2B Sales Representative. Patient given the opportunity to ask questions. Our service contacted for an assessment of: Viral URI symptoms As per above, patient with approximately several days of viral URI symptoms. Denies fever or chills. Denies chest pain, shortness of breath, dyspnea on exertion. Positive nasal congestion and dry cough. Positive sick contacts. Per automobile contract clerk on the scene, vital signs are stable and patient is afebrile. No wheezing heard on exam. COVID and Flu are both negative. No increased work of breathing and no distress. Impression: Common cold and viral URI Plan: Continue with cxqw-jre-txznsxo medications to control symptoms. Patient interested in Tessalon Perles which were sent. to her pharmacy Red flags discussed as to when to seek a higher level care. Allergies: Reviewed PCP f/u: We discussed the diagnostic uncertainty of home visits and the risk associated with this. In this case, the patient and I felt this to be an acceptable and reasonable amount of risk given the benefit of avoiding an ED visit. We discussed the need to seek care urgently/emergen tly in the setting of any new or worsening serious symptoms, particularly fever chills Not available 10/10/2024 21:16:36 10/13/2024 10/13/2024 I provided real -time medical direction via phone for this encounter and was available for additional phone-based assistance as needed. I have reviewed and agree with the Assessment and Plan as documented by the B2B Sales Representative. Patient given the opportunity to ask questions. Second visit for this patient. This patient is seen by this [facility] and medic on SaturdayOctober 10 for upper respiratory symptoms that was thought to be viral in nature. Patient tested negative for COVID and flu at that time. She was placed on Tessalon Perles. She continue to take hmlo-uvt-pjrreje cough medicine. She states that her cough is worse. Upon visit by medic today the patient has wheezing with no history of COPD or asthma. She continues to deny fever or chills, chest pain, shortness of breath and dyspnea on exertion. Her vital signs are stable and she remains afebrile. Wheezing heard on exam. There is no increased work of breathing in no distress. Patient did respond favorably to a duo nebs. Will prescribe a Z-Len and albuterol MDI. Can consider prednisone if no improvement over the next several days. Patient instructed to follow-up with PCP with a phone call later this week and an in-person visit next week depending upon trajectory. Allergies: Reviewed PCP f/u: We discussed the diagnostic uncertainty of home visits and the risk associated with this. In this case, the patient and I felt this to be an acceptable and reasonable amount of risk given the benefit of avoiding an ED visit. We discussed the need to seek care urgently/emergen tly in the setting of any new or worsening serious symptoms, particularly fever chills Not available 10/13/2024 18:04:26 Plan of Treatment Reminders Order Date Submit Date Provider Last Modified By Organization Details Last Modified Time Details Appointments None recorded. Lab urinalysis, dipstick 2024 025 [email or web address] [facility], [address] [place] [address], [id number] 5 17:39:07 culture, urine 2024 025 [place] (Centralized Electronic Ordering - All Locations), Patient Can Go To The Location Of Their Choice, [id number] 5 20:07:05 rapid SARS CoV 2 Ag, QL IA, respiratory specimen 20[facility], [address] [place] [address], [id number] 5 07:57:06 rapid flu (A+B) 2024 025 [facility] [address] [place] [address], [id number] 5 07:57:07 rapid flu (A+B) 2024 025 [facility], [address] [place] [address], [id number] 5 20:15:50 rapid SARS CoV 2 Ag, QL IA, respiratory specimen [address], [address] [place] [address], [address] [place] [address] 5 20:15:50 culture, urine 2023 024 [place] [facility] (Centralized Electronic Ordering - All Locations), Patient Can Go To The Location Of Their Choice, [id number] 4 12:06:14 urinalysis, dipstick 2023 024 [facility], [address] [place] [address], [id number] 4 19:23:38 Referral None recorded. Procedures None recorded. Surgeries None recorded. Imaging None recorded. Medication Orders prednisone 20 mg tablet 2024 025 [facility]acy #[id number], [address] [place], [address], 5 17:44:11 prednisone 20 mg tablet 2024 025 [id number] [address] [place] [address], [address], 17:44:13 ipratropium 0.5 mg-albutero l 3 mg (2.5 mg base)/3 mL nebulizatio n soln 2024 025 [facility] [address] [place] [address], [address], 17:44:13 ipratropium 0.5 mg-albutero l 3 mg (2.5 mg base)/3 mL nebulizatio n soln 2024 025 [address] [address] [place] [address], [address], 17:41:15 azithromyci n 250 mg tablet 2024 025 [address] [address] [place] [address], [address], 17:41:15 azithromyci n 250 mg tablet 2024 025 [facility] [address] [place] [address], [address], 17:41:17 albuterol sulfate HFA 90 mcg/actuati on aerosol inhaler 2024 025 [facility]armacy #0957, [address] [place] [address], [address], 17:41:17 benzonatate 100 mg capsule 2024 025 [facility]/Pharmacy #0957, [address] [place] [address], [address], 5 20:15:52 cefpodoxime 100 mg tablet 2023 024 [place] [facility]armacy #[id number], [address] [place], [address], 19:23:40 Patient TargetsNo targets recorded. Patient InstructionsNo instructions recorded. Reason for Referral None Reported. Results Created Date Observation Date Name Description Value Unit Range Abnormal Flag Note LastModifiedBy Organization Detail LastModifiedTime 04/22/20 24 04/25/2024 URINE CULTU RE,CO MPREH ENSIV E urine culture,comp rehensive Final report abnormal Not Available [facility] ([facility]) [address] [facility], [place], [address], 04/25/2024 14:09:05 04/22/20 24 04/25/2024 URINE CULTU RE,CO MPREH ENSIV E result 1 Entero coccus faecal is abnormal Great er than 100,0 00 colon y formi ng units per mL For Enter ococc us speci es, amino glyco sides (exce pt for high- level resis tance scree jonnie) , cepha lospo rins, clind amyci n, and trime thopr im-arteaga lfame thoxa zole are not effec tive clini anjana . (CLSI , M100- S26, 2016) Not Available [facility] ([facility]) [address] [place], [address], 04/25/2024 14:09:05 04/22/20 24 04/25/2024 URINE CULTU RE,CO MPREH ENSIV E antimicrobia l susceptibili ty Commen t S = Susce ptibl e; I = Inter media te; R = Resis tant P = Posit yaz; N = Negat yaz MICS are expre ssed in micro grams per mL Antib iotic RSLT# 1 RSLT# 2 RSLT# 3 RSLT# 4 Cipro floxa mary lou S Levof loxac in S Nitro furan toin S Penic illin S Tetra cycli ne R Vanco mycin S Not Available [facility] ([facility]) [address] [facility], [place], [address], 04/25/2024 14:09:05 10/11/19 25 10/10/2024 rapid SARS CoV 2 Ag, QL IA, respi rator y speci men rapid SARS CoV 2 Ag, QL IA, respiratory specimen negati ve Not Available [facility] - [facility] ed [address] [place] [address], [id number] 10/10/2024 20:15:08 10/11/19 25 10/10/2024 rapid flu (A+B) Flu negati ve Not Available [facility] ed [address] [place] [address], [phone] 10/10/2024 20:15:02 11/17/19 25 11/17/2024 URINE CULTU RE, ROUTI NE urine culture, routine Final report Not Available [facility] ([facility]) [address] [facility], [place], [address], 11/17/2024 20:07:05 11/17/19 25 11/17/2024 URINE CULTU RE, ROUTI NE result 1 COMMEN T Cultu re shows less than 10,00 0 colon y formi ng units of bacte crow per gonzalez liter of urine . This colon y count is not gener ally consi dered to be clini anjana signi fican t. Not Available [facility] ([facility]) [address] [facility], [place], [address], 11/17/2024 20:07:05 11/17/19 25 11/16/2024 urina lysis , dipst ick Leukocytes + Not Available [facility] [address] [place] [address], [phone] 11/16/2024 17:38:44 11/17/1911/16/2024 urina lysis , dipst ick Nitrite positi ve Not Available [facility] ed [address] [place] [address], [phone] 11/16/2024 17:38:44 Result Notes None recorded. Medical Equipment None Reported. Allergies Allergen ID Allergen Name Allergen Category Reaction Reaction Severity Criticality Documentation Date Start Date Code Code System Note Provider Name and Address Organization Details Recorded Time 5784 aspirin medicatio n Not available Not available Not available 03/16/2024 1191 RxNorm Not Available [facility] - production 4 03:33:39 Medications Name Sig Start Date Stop Date Status Note LastModified by Organization Details LastModified Time quetiapine 25 mg tablet TAKE 1 TABLET BY MOUTH AT BEDTIME FOR 1 WEEK THEN TWICE A DAY DIRECTED active Not Available Not Available Not Available cefuroxime axetil 250 mg tablet TAKE 1 TABLET BY MOUTH EVERY DAY FOR 7 DAYS active Not Available Not Available No t Available ipratropium 0.5 mg-albuterol 3 mg (2.5 mg base)/3 mL nebulization soln Inhale 3 mL every 6 hours by nebulizatio n route as needed for 5 days. active Not Available Not Available No t Available donepezil 5 mg tablet TAKE 1 TABLET BY MOUTH EVERY DAY IN THE EVENING active Not Available Not Available No t Available trazodone 50 mg tablet TAKE 1/2 TABLET (25 MG) BY MOUTH AT BEDTIME. active Not Available Not Available No t Available azithromycin 250 mg tablet TAKE 1 TABLET (250 MG) BY ORAL ROUTE ONCE DAILY FOR 4 DAYS active Not Available Not Available No t Available cefpodoxime 100 mg tablet TAKE 1 TABLET BY MOUTH EVERY 12 HOURS FOR 7 DAYS active Not Available Not Available N ot Available levetiraceta m 500 mg tablet TAKE 1 AND 1/2 TABLETS BY MOUTH TWICE A DAY active Not Available Not Available Not Available donepezil 10 mg tablet TAKE 1 TABLET BY MOUTH EVERYDAY AT BEDTIME active Not Available Not Available No t Available prednisone 20 mg tablet Take 2 tablets every day by oral route for 4 days. active Not Available Not Available No t Available hydralazine 25 mg tablet TAKE 1 TABLET BY MOUTH EVERY DAY IN THE MORNING active Not Available Not Available No t Available levothyroxin e 75 mcg tablet TAKE 1 TABLET BY MOUTH EVERY DAY active Not Available Not Available No t Available levothyroxin e 100 mcg tablet TAKE 1 TABLET BY MOUTH BEFORE BREAKFAST active Not Available Not Available No t Available oxycodone-ac etaminophen 5 mg-325 mg tablet TAKE 1 TABLET BY MOUTH IF NEEDED EACH DAY FOR SEVERE PAIN. DO NOT START BEFORE OCTOBER 15, 2024. active Not Available Not Available No t Available famotidine 20 mg tablet TAKE 1 TABLET BY MOUTH TWICE A DAY active Not Available Not Available No t Available benzonatate 100 mg capsule TAKE 1 CAPSULE BY MOUTH THREE TIMES A DAY FOR 10 DAYS active Not Available Not Available Not Available oseltamivir 75 mg capsule TAKE 1 CAPSULE BY MOUTH EVERY DAY FOR 4 DAYS active Not Available Not Available No t Available hydrocortiso ne 2.5 % topical cream APPLY TO AFFECTED AREA ONCE DAILY FOR 2 WEEKS active Not Available Not Available No t Available hydrochlorot hiazide 25 mg tablet TAKE 1 TABLET BY MOUTH EVERY DAY IN THE MORNING active Not Available Not Available No t Available albuterol sulfate HFA 90 mcg/actuatio n aerosol inhaler INHALE 2 PUFFS EVERY 4 TO 6 HOURS NEEDED FOR 10 DAYS active Not Available Not Available No t Available lisinopril 40 mg tablet TAKE 1 TABLET BY MOUTH EVERY DAY active Not Available Not Available No t Available doxycycline hyclate 100 mg tablet TAKE 1 TABLET BY MOUTH TWICE A DAY FOR 10 DAYS active Not Available Not Available No t Available amoxicillin 500 mg-potassium clavulanate 125 mg tablet TAKE 1 TABLET BY MOUTH EVERY 8 HOURS FOR 7 DAYS active Not Available Not Available No t Available hydroxyzine pamoate 25 mg capsule TAKE 1 CAPSULE BY MOUTH TWICE A DAY active Not Available Not Available No t Available cyclobenzapr ine 5 mg tablet TAKE 1 TABLET BY MOUTH EVERY DAY active Not Available Not Available No t Available rosuvastatin 40 mg tablet TAKE 1 TABLET BY MOUTH EVERY DAY IN THE MORNING active Not Available Not Available No t Available memantine 10 mg tablet TAKE 1 TABLET BY MOUTH TWICE A DAY active Not Available Not Available No t Available mirtazapine 7.5 mg tablet TAKE 1 TABLET BY MOUTH EVERYDAY AT BEDTIME active Not Available Not Available No t Available nitrofuranto in monohydrate/ macrocrystal s 100 mg capsule TAKE 1 CAPSULE BY MOUTH TWICE A DAY FOR 7 DAYS active Not Available Not Available No t Available Gavilax 17 gram/dose oral powder MIX 17 G BY MOUTH DAILY active Not Available Not Available Not Available [facility] USE DIRECTED WITH INHLAER active Not Available Not Available No t Available naloxone 4 mg/actuation nasal spray PLEASE SEE ATTACHED FOR DETAILED DIRECTIONS active Not Available Not Available N ot Available Vitals Date Recorded Heart rate Oxygen saturation Oxygen saturation in Arterial blood by Pulse oximetry Respiratory rate Body temperature Systolic blood pressure Diastolic blood pressure Provider Name and Address Organization Details Last Updated DateTime 4 70 /min 98 % 98 % 18 /min 98.2 [degF] 158 mm[Hg] 92 mm[Hg] Not Available [facility] 4 19:19:53 Date Recorded Respiratory rate Oxygen saturation Oxygen saturation in Arterial blood by Pulse oximetry Heart rate Body height Body weight Body temperature Systolic blood pressure Diastolic blood pressure Provider Name and Address Organization Details Last Updated DateTime 5 14 /min 97 % 97 % 93 /min 160.02 cm 65634.6 4 g 99.7 [degF] 129 mm[Hg] 83 mm[Hg] Not Available [facility] 5 19:51:16 Date Recorded Body temperature Oxygen saturation Oxygen saturation in Arterial blood by Pulse oximetry Heart rate Respiratory rate Systolic blood pressure Diastolic blood pressure Provider Name and Address Organization Details Last Updated DateTime 5 98.8 [degF] 96 % 96 % 90 /min 18 /min 112 mm[Hg] 75 mm[Hg] Not Available [facility] 5 17:36:55 Date Recorded Oxygen saturation Oxygen saturation in Arterial blood by Pulse oximetry Body temperature Heart rate Respiratory rate Systolic blood pressure Diastolic blood pressure Provider Name and Address Organization Details Last Updated DateTime 5 97 % 97 % 97.4 [degF] 85 /min 16 /min 129 mm[Hg] 81 mm[Hg] Not Available [facility] 5 17:36:49 Date Recorded Body temperature Oxygen saturation Oxygen saturation in Arterial blood by Pulse oximetry Heart rate Respiratory rate Systolic blood pressure Diastolic blood pressure Provider Name and Address Organization Details Last Updated DateTime 5 98.3 [degF] 98 % 98 % 88 /min 16 /min 134 mm[Hg] 86 mm[Hg] Not Available [facility] 5 17:34:12 Social History None recorded. Functional Status None recorded. Mental Status None recorded. Family History Nothing Reported. Medical History No medical history recorded. Gynecological HistoryNo gynecological history recorded. Obstetrics History GPAL:G 0 P 0 0 0 0 Past Encounters Encounter ID Performer Location Encounter Start Date Encounter Closed Date Diagnosis/Indication Diagnosis SNOMED-CT Code Diagnosis ICD10 Code Diagnosis Note [id number] Vira Barrow MD [facility] - [facility] [address] [place] [phone] 03/10/2024 14:11:24 03/11/2024 10:58:05 Urinary symptoms [id number] R39.9 [id number] Georgiana Pedraza MD [facility] - [facility] [address] [place] [phone] 04/22/2024 19:19:51 04/22/2024 22:00:02 Urinary symptoms [id number] R39.9 [id number] Natalie Kapoor MD Main - [facility] [address] [place], [place] [phone] 10/10/2024 19:46:02 10/12/2024 09:41:23 Common cold [id number] J00 [id number] Natalie Kapoor MD Main - [facility] [address] [place], [place] [phone] 10/13/2024 17:36:53 10/13/2024 19:01:48 Upper respiratory infection [id number] J06.9 [id number] SHERRI THAKKAR MD Main - [facility] [address] [place] [phone] 10/17/2024 17:36:47 10/18/2024 19:24:55 Cough 58049380 R05.9 Evaluation in the field was performed by my automobile contract clerk colleague, as noted above, I provided real-time direction and supervisio n for this visit. The evaluation revealed 79-year-ol d female with persistent cough, worsening despite initial treatmentI nitial visit (10/10): Seen for upper respirator y symptoms, suspected viral. COVID and flu negative. Started on Tessalon Perles and OTC cough medicine.F ollow-up (10/12): Worsening cough per daughter. New wheezing on lung exam without prior history of COPD or asthma. No fever, chills, chest pain, or dyspnea. Given Duoneb in-office, started on Albuterol MDI and Z-Len.Urge nt Care visit (10/15): Started on Doxycyclin e. Chest X-ray negative.T shaw daughter reports :Persisten t cough, nocturnal coughing fits taking her breath away Poor appetite; daughter forcing her to eatUsing extra pillows for better sleepDenie s fever, chills, chest pain, SOB, weight gain, or TREVIN.Daught er had given duoneb prior to the automobile contract clerk arrival Vital Signs: BP: 129/81 mmHg, HR: 85 bpm, RR: 16, SpO? : 97% RA, Temp: 97.4? ? ?FExam: AAOx3, NAD, no increased work of breathingL ungs: Diffuse expiratory wheezing, no rales, no LEECOVID & Flu: NegativeAl lergies reviewed Impression : Persistent bronchospa sm, likely post-viral or undiagnose d reactive airway disease.Po ssible post-infec tious or bacterial bronchitis despite antibiotic s. Plan :-Continue duoneb . every 4-6 hours PRN for wheezing and cough. Rx sent to her pharmacy-S tarted on short course of prednisone to reduce airway inflammati on.-Daught er encouraged to continue hydration, humidifier , and rest.-Red flags discussed with daughter : new or worsening shortness of breath, inability to eat or drink adequately , persistent or worsening wheezing despite treatment, fever, chills, or systemic symptoms concerning for pneumonia, altered mental status or lethargy-F ollow-up with PCP in 2-3 days Primary care, consider__ _ Dispositio n: We discussed the diagnostic uncertaint y of home visits and the risk associated with this. In this case, the patient and I felt this to be an acceptable and reasonable amount of risk given the benefit of avoiding an ED visit. We discussed the need to seek care urgently/e mergently in the setting of any new or worsening serious symptoms, particular ly new or worsening shortness of breath, inability to eat or drink adequately , persistent or worsening wheezing despite treatment, fever, chills, or systemic symptoms concerning for pneumonia, altered mental status or lethargy [id number] Breanna Villarreal MD [facility] - [facility] [address] [place] [id number] 11/16/2024 17:34:10 11/16/2024 19:52:52 Hallucinations [id number] R44.3 79 year old female with dementia, being evaluated for hallucinat ions and malodorous urine for 2 days. Patient's caregivers report patient is still eating, drinking and without nausea, vomiting or fever. She has been having hallucinat ions which are typical of previous UTI's. Patient without cough, congestion , diarrhea or new medication s. Last UTI was a few months ago. Exam notable for normal vital signs, POC urine studies positive for leukocytes . Presentati on consistent with hallucinat ions, in the setting of possible UTI. Given patient is clinically stable, and may be at risk of MDR, will defer antibiotic s until culture results available. I have reviewed and agree with the assessment and plan as documented by the automobile contract clerk. I provided real-time medical direction for this encounter and was immediatel y available to provide additional phone-base d assistance as needed. We discussed the diagnostic uncertaint y of home visits and associated risks. We discussed the need to seek care urgently/e mergently in the setting of any new or worsening symptoms. Health Concerns Section Related Observation LastModified by Organization Detai ls LastModified Time None Recorded Concern Status LastModified by Organization Details LastModified Time None Recorded Advance Directives Directive None Recorded Payers Insurance Date Sequence Insurance Name Policy Number Policy Delcid Covered Member ID Delcid Member ID Guarantor Name 10/06/2023 1 [facility] - DOS PRIOR TO 2022 - DUAL ELIGIBLE (MEDICARE REPLACEMENT/ADV ANTAGE - HMO) [facility] [id number] [facility] 11/16/2024 1 [facility] - DOS ON OR AFTER 2022 - DUAL ELIGIBLE - JAIL OPTIONS AND ONE CARE (MEDICARE REPLACEMENT/ADV ANTAGE - HMO) [facility] [id number] [facility] Notes Date Note Type Note Provider Name and Address Organization Details Recorded Time 04/22/2024 text/html CRC Nurse Triage Notes (Sarbjit Carrasco): Reason For Request: Pt's daughter Rola reporting suspected UTI Chief Complaints: UTI/Pyelonephritis PMH: Hypertension Allergies: Aspirin Comments: Wheelchair Rental Clerk verified the member's name//address and phone number. Mbr's daughter calling with concerns that mbr may have UTI. Daughter reports mbr with foul smelling urine and more forgetful and agressive verbally then normal, mbr has hx of dementia. Education provided on the response time and the member was advised to monitor reported s/s and seek emergency treatment if needed -Shady Carrasco RN B2B Sales Representative Organization Information for [facility] [employer] Legal Name: [employer]? Address: [address] [place] [address], Agricultural Engineer: Kirk Asencio MD CLIA No.: [id number] B2B Sales Representative POC Test Results from [facility] - ALS Urine Dipstick (19:17:50) Urine leukocytes: 70+ SHREE Urine nitrites: + NIT Urine urobilinogen: - URO Urine protein: - PRO Urine pH: 5.0 pH Urine blood: + BLO Urine specific gravity: 1.005 SG Urine ketones: + KET Urine bilirubin: - JOSÉ MIGUEL Urine glucose: - GLU .................... .................... .................... .................... .................... .................... .................... . B2B Sales Representative Note From [facility] Yeung: Dispatched to the call address for the elderly female with UTI s/s. Pts daughter states Pt has Hx of dementia and is sometimes confused but when she gets UTIs she becomes more confused. Family has noticed Pt has been repeating herself a lot lately and sometimes getting more angry than usual as well as foul smelling urine. Pt has Hx of approx 4 UTIs a year with the last one being approx 4 months ago. Family denies any abx resistant episodes or ones that require a longer than normal course of abx. Pt was found sitting on living room couch, CAOx3, airway open and patent, breathing non labored, able to speak in full sentences, -JVD, -HEENT, skin PWD color appropriate for race/warm/dry, pupils PERRL, abd soft non tender/distended, -CVA tenderness, mucous membranes pink and moist, -edema, lung sounds CTA. UA (+). [facility] consulted. Script called into preferred pharmacy. Culture brought to lab. Red flags discussed. ALL times are approx. .................... .................... .................... .................... .................... .................... .................... . Disposition: Karyn Georgiana Pedraza MD [address] [place] [address],[address], [place], [address], [employer]! 04/22/2024 20:31:40 10/10/2024 text/html CRC Nurse Triage Notes (Thad Rollins): Reason For Request: Coughing/chills/body aches Patient Reports: Sputum increase ; Cough Denies: Increased work of breathing/labored ? with or without fever Unable to speak in full sentences without distress Discoloration of skin -cyanosis Needs to sleep sitting up, can? t catch breath Shortness of breath in setting of confusion Cough, fever greater than 2 days Lower extremity swelling History of asthma, increased use of inhaler COPD Shortness of breath with exertion Pain with inspiration Chief Complaints: Common Cold PMH: Hypertension PMH Reviewed at 10/10/2024 - :30 Allergies Reviewed at 10/10/2024 - :30 Comments: Wheelchair Rental Clerk verified the Pt.'s name//address and phone number. Education provided on the response time and the Pt. was advised to monitor reported s/s and seek emergency treatment if needed. CG reports the pt is feeling unwell with a cough/cold and congestion - Subjective fever -Headache - Denies SOB - Denies sore throat - S/S started yesterday - Pt is taking over the counter cold medication and cough drops - No relief reported. B2B Sales Representative Organization Information for [employer] Legal Name: [facility] Transportation Address: [address] [place] [address] [place] [address], Agricultural Engineer: Thomas Hendrix MD CLIA No.: [id number] B2B Sales Representative POC Test Results from [employer] Rapid COVID antigen (20:25:20) COVID: - Rapid influenza antigen (20:25:21) Flu: - .................... .................... .................... .................... .................... .................... .................... . B2B Sales Representative Note From Aamir Can: This visit is for an 79-year-old female with a history including but not limited to HTN and dementia. Patient's daughter requested a visit to address two days of dry cough, sinus congestion and rhinorrhea. Patient denies any chest pain, shortness of breath, headaches, fevers, nausea, vomiting, diarrhea. Patient does not have any chronic respiratory conditions. Daughter has been giving DayQuil, NyQuil and throat lozenges with minimal relief. Daughter reports patient is eating and drinking a baseline. Allergy to aspirin. Patient presents awake and alert, in no acute distress and speaking full sentences. Her vital signs are reasonably stable and she is afebrile. Nonfocal neurological exam. Normal gait. Normal oropharynx exam. No sinus tenderness. Lungs are clear throughout auscultation. Abdomen is soft, nontender, nondistended. No lower extremity edema. Rapid COVID and flu testing are both negative. We discussed the diagnostic uncertainty of home visits and the risk associated with this. In this case, the patient and I felt this to be an acceptable and reasonable amount of risk given the benefit of avoiding an ED visit. I provided education on the patient's prescription as well as additional OTC/supportive care therapy. I recommend the patient follow up with her primary care physician later this week and present to the emergency department for any new or worsening severe symptoms such as chest pain, shortness of breath, high fever, altered mental status. The patient and her daughter were given the opportunity to ask questions and are agreeable to this plan. [facility] Lab Orders: rapid flu (A+B): Performed rapid SARS CoV 2 Ag, QL IA, respiratory specimen: Performed .................... .................... .................... .................... .................... .................... .................... . [facility] Consulted: Natalie Kapoor .................... .................... .................... .................... .................... .................... .................... . Disposition: Fulfilled Natalie Kapoor MD [address] [place] [address],[address], [place], [phone], [facility] [employer] 10/10/2024 21:16:47 10/13/2024 text/html CRC Nurse Triage Notes (Sharonda Holliday): Reason For Request: Pt was seen by [facility] on 10/10, mom has not improved. Daughter can hear wheezing Denies: Increased work of breathing/labored ? with or without fever Unable to speak in full sentences without distress Discoloration of skin -cyanosis Needs to sleep sitting up, can? t catch breath Shortness of breath in setting of confusion Chief Complaints: Cough PMH: Hypertension, Epilepsy/Seizure Disorder PMH Reviewed at 10/13/2024 12:59 Allergies Reviewed at 10/13/2024 12:59 Comments: Patient has an [facility] visit on Saturday. No improvement in cough since. New onset of wheezing noted. No hx of Asthma or COPD. Cough is non-productive. Covid test negative. No shortness of breath. Taking Benzonatate with no improvement. Denies fever/chills. Education provided on the response time and the member was advised to monitor reported s/s and seek emergency treatment if needed. .................... .................... .................... .................... .................... .................... .................... . B2B Sales Representative Note From [employer]: This 79-year-old female with a history including but not limited to HTN and seizure disorder requested a visit today for ongoing dry cough. I visited this patient on Saturday for complaints of the same, prescribed benzonatate in addition to the Mucinex the daughter was giving. Patient states she feels that her cough is getting worse and the daughter noted auditory wheezing today. Patient denies any chest pain, shortness of breath, dyspnea on exertion, headaches, fever, nausea, vomiting, diarrhea. Patient presents awake and alert, in no acute distress and speaking full sentences. Her vital signs are reasonably stable and she is afebrile. Nonfocal neurological exam. Normal gait. Mild diffuse expiratory wheezing. Abdomen is soft, nontender, nondistended. No lower extremity edema. I treated this patient with a duo neb which resolved the wheezing and azithromycin 500 mg. We discussed the diagnostic uncertainty of home visits and the risk associated with this. In this case, the patient and I felt this to be an acceptable and reasonable amount of risk given the benefit of avoiding an ED visit. I provided education on the patient's prescriptions as well as additional OTC/supportive care therapy. I recommend they follow up with the patient's PCP and present to the emergency department for any new or worsening severe symptoms such as chest pain, shortness of breath, high fever, altered mental status. The patient and her daughter were given the opportunity to ask questions and are agreeable to this plan. [facility] Medication Orders: ipratropium 0.5 mg-albuterol 3 mg (2.5 mg base)/3 mL nebulization soln: Administered azithromycin 250 mg tablet: Administered .................... .................... .................... .................... .................... .................... .................... . [facility] Consulted: Natalie Kapoor .................... .................... .................... .................... .................... .................... .................... . Disposition: Karyn Kapoor MD [address] [place] [address],[address], [place], [address], [employer]! 10/13/2024 18:04:35 10/17/2024 text/html CRC Nurse Triage Notes (Sarbjit Carrasco): Reason For Request: Patient has a Cough, and coughs all night wakes up 2-3 times per night, has dementia. Patient Reports: Needs to sleep sitting up, can? t catch breath Denies: Increased work of breathing/labored ? with or without fever Unable to speak in full sentences without distress Discoloration of skin -cyanosis Shortness of breath in setting of confusion Chief Complaints: Cough PMH: Hypertension, Epilepsy/Seizure Disorder PMH Reviewed at 10/17/2024 - :17 Allergies Reviewed at 10/17/2024 - :17 Comments: Wheelchair Rental Clerk verified the patient's name//address and phone number. Pt's [facility]. Pt was then seen again on 10/13 and medication for cough was changed and pt was given a neb treatment. Pt was then seen at on and given another medication. Pt had XR that was (-). Daughter states pt continues to cough and pt was up multiple times last night. Daughter states pt with poor appetite and feeling uncomfortable from continued coughing. Daughter states she is having to force patient to eat crackers and soup. Daughter states she has been boosting pt up on pillows to help pt sleep better with the cough. Daughter says pt keeps waking up coughing in the night, states coughing fits are taking pt's breath away at times. Education provided on the response time and the patient was advised to monitor reported s/s and seek emergency treatment if needed -Shady Carrasco RN B2B Sales Representative Organization Information for [employer] [facility] Legal Name: [facility] Address: [address] [place] [address], [place] [address], Agricultural Engineer: Thomas Hendrix MD CLIA No.: [id number] B2B Sales Representative POC Test Results from [employer] Rapid COVID antigen (17:39:40) COVID: - Rapid influenza antigen (17:39:40) Flu: - .................... .................... .................... .................... .................... .................... .................... . B2B Sales Representative Note From [employer] Can: This visit is for an 79-year-old female with a history of hypertension and seizure disorder who I visited on 10/10 and 10/13 for complaints of cough. On 10/10 she was COVID and flu negative and we prescribed benzonatate. On 10/13 she developed mild diffuse expiratory wheezing and we treated with a duo neb and prescribed azithromycin and and albuterol MDI. Patient's daughter states she took her to a walk-in on , had a negative chest x-ray and was prescribed doxycycline. Daughter has been administering duo nebs three to four times per day along with Mucinex DM. Patient states the cough has gotten worse and is keeping her up all night. Patient denies any chest pain, severe shortness of breath, fevers, nausea, vomiting, diarrhea. Patient presents awake and alert, in no acute distress and speaking full sentences. Her vital signs are reasonably stable and she is afebrile. Nonfocal neurological exam. Normal gait. Diffuse expiratory wheezing. Abdomen is soft, nontender, nondistended. No lower extremity edema. Rapid COVID and flu testing are still negative. I treated this patient with a duo neb and prednisone 40 mg. We discussed the diagnostic uncertainty of home visits and the risk associated with this. In this case, the patient and I felt this to be an acceptable and reasonable amount of risk given the benefit of avoiding an ED visit. I provided education on the patient's prescriptions and recommend they continue the doxycycline, Mucinex and nebulizer treatments. I also recommend that she present to the emergency department if she does not improve after finishing the course of prednisone. She should also present to the emergency department for any new or worsening severe symptoms such as chest pain, severe shortness of breath, high fever, altered mental status. The patient and her daughter were given the opportunity to ask questions and are agreeable to this plan. [facility] Lab Orders: rapid SARS CoV 2 Ag, QL IA, respiratory specimen: Performed rapid flu (A+B): Performed [facility] Medication Orders: prednisone 20 mg tablet: Administered .................... .................... .................... .................... .................... .................... .................... . [facility] Consulted: Sherri Thakkar .................... .................... .................... .................... .................... .................... .................... . Disposition: Karyn THAKKAR MD [address] [place] [address],[address], [place], [phone], [employer] 10/17/2024 18:14:13 11/16/2024 text/html CRC Nurse Triage Notes (Thad Rollins): Reason For Request: UTI Denies: Unable to void greater than 5 hours Erection that will not go away after 2 hours Fall or trauma that results in urinary incontinence in the setting of pain Fall or injury that results in incontinence in the absence of pain Lower back pain either unilateral or bilateral, unable to void, painful urination -hematuria Painful urination Frequent and increased urination with flank pain Painful urination with or without fever Inability to fully empty bladder Chief Complaints: Urinary Symptoms PMH: Hypertension, Epilepsy/Seizure Disorder PMH Reviewed at 11/16/2024 - 12:28 Allergies Reviewed at 11/16/2024 - 12:28 Comments: 79 y.o female complains of Urinary Symptoms - CG reports the pt is feeling unwell with UTI symptoms x 2 days - Increased confusion with Hallucinations - Urine is cloudy with an odor -Baseline back pain - Denies increased frequency/urgency and burning -Denies fever - Denies taking over the counter medication - I provided information on the mobile health provider response time and advised the patient and/or caregiver to monitor reported signs and symptoms. I discussed the warning signs of when to seek emergency care. B2B Sales Representative Organization Information for [employer] Legal Name: [employer]? Address: [address] [place] [address], Agricultural Engineer: Kirk CHRISTINE No.: [id number] B2B Sales Representative POC Test Results from [employer] [facility]LEY Urine Dipstick (15:41:00) Urine leukocytes: 70+ SHREE Urine nitrites: + NIT Urine urobilinogen: 2 URO Urine protein: 15+ PRO Urine pH: 7.5 pH Urine blood: - BLO Urine specific gravity: 1.010 SG Urine ketones: 15+ KET Urine bilirubin: - JOSÉ MIGUEL Urine glucose: - GLU .................... .................... .................... .................... .................... .................... .................... . B2B Sales Representative Note From Daivd Yeung: Dispatched to the call address for the female with increased confusion. Pts daughter advises Pt has a Hx of dementia but the last couple of days she has had an increase in confusion and has been hallucinating. She advises this is fairly typical presentation for UTIs. She was last treated for a UTI a couple of months ago. Pt has been able to maintain PO intake and denies pain, fevers, n/v/d or other complaints at this time. Pt was found sitting on living room couch, CAOx4, airway open and patent, breathing non labored, able to speak in full sentences, skin PWD with good turgor, mucous membranes pink and moist, lung CTA. -JVD, -HEENT, pupils PERRL, +CMSx4, abd soft non tender/distended, afebrile, -edema/swelling. UA (+). UTI Pt was assessed with full set of vitals. Culture obtained, UA. [facility] consulted. Red flags discussed. ALL times are approx. [facility] Lab Orders: urinalysis, dipstick: Performed culture, urine: Performed .................... .................... .................... .................... .................... .................... .................... . [facility] Consulted: Breanna Villarreal .................... .................... .................... .................... .................... .................... .................... . Disposition: Fulfilled Breanna Villarreal MD [address] [facility],[address], [place], [address], [employer] 11/16/2024 19:04:12 OBGyn Episode No OBEpisode recorded.
--- OUTSIDE RECORDS SUMMARY | 2024-12-31 10:26 | XMS_ITS | Encounter Summary ---
Author Organization [employer] Address [address] [place] [address] 7 [place] [address] Care Team Providers Care Employee Communications Manager Name Role Phone Mckayla Salazar MD Primary Care Provider Encounter Details Date Type Department Care Team (Latest Contact Info) Description 12/31/2024 Travel Social History Tobacco Use Types Packs/Day Years [...] 03/15/2025 10:30 AM EDT Telemedicine [facility] MED [facility] P[facility] [address] [place] [address] Ileana Rodriguez RN [address] [place] [address] documented as of this encounter Visit Diagnoses Not on filedocumented in this encounter Additional Health Concerns Assessment Noted Time PHQ-9 Depression Total Score: 2 06/18/20 24 9:11 AM EST documented as of this encounter Care Teams Employee Communications Manager Relationship Specialty Start Date End Date Mckayla Salazar MD [address] [place] [id number] PCP - General Family Medicine 01/26/20 documented as of this encounter
--- OUTSIDE RECORDS SUMMARY | 2024-12-31 10:26 | XMS_ITS | Encounter Summary ---
Author Organization [employer] Address [address] [place] [address] Care Team Providers Care Hotel Operation Manager Name Role Phone Mckayla Salazar MD Primary Care Provider [phone] Encounter Details Date Type Department Care Team (Latest Contact Info) Description 02/24/2019 Abstract [facility] CONVERSIONS Dental, Provider, DDS Social History Tobacco [...] Info) Description 03/15/2025 10:30 AM EDT Telemedicine [facility] MED & PEDS [address] [place] [address] Ileana Rodriguez, DORETHA [address] [place] [address] documented as of this encounter Visit Diagnoses Not on filedocumented in this encounter Care Teams Hotel Operation Manager Relationship Specialty Start Date End Date Mckayla Salazar MD [address] [place] [id number] PCP - General Family Medicine 01/26/20 documented as of this encounter
--- OUTSIDE RECORDS SUMMARY | 2024-12-31 10:26 | XMS_ITS | Encounter Summary ---
Author Organization [facility] [employer] Address [address] [place] [address] Care Team Providers Care Warp Tension Tester Name Role Phone Mckayla Salazar MD Primary Care Provider [phone] Reason for Visit * Reason Onset Date Comments Med Refill 02/24/2024 Encounter Details Date Type Department Care Team ([facility] st Contact Info) Description 02/24/2024 Telephone [facility] MEDIC[facility] [address] [place] [address] Mckayla Salazar MD [address] [place] [address] Med Refill Social History Tobacco Use Types [...] encounter Miscellaneous Notes * Telephone Encounter - Angelia Alejandro - 02/24/2024 8:42 AM EDT TC from pt requesting medication refill. Medications needing refill : oxyCODONE-acetaminophen (Percocet) 5-325 MG tablet To be sent to: [facility]/pharmacy #[id number] documented in this encounter Plan of Treatment Upcoming Encounters Date Type Department Care Team ([facility] st Contact Info) Description 03/15/2025 10:30 AM EDT Telemedicine [facility] MED & PEDS [address] [place] [address] Ileana Rodriguez, DORETHA [address] [place] [address] documented as of this encounter Visit Diagnoses Not on filedocumented in this encounter Additional Health Concerns Assessment Noted Time PHQ-9 Depression Total Score: 0 06/12/20 23 11:25 AM EDT documented as of this encounter Care Teams Warp Tension Tester Relationship Specialty Start Date End Date Mckalya Salazar MD [address] [place] [address] PCP - General Family Medicine 01/26/20 documented as of this encounter
--- OUTSIDE RECORDS SUMMARY | 2024-12-31 10:26 | XMS_ITS | Encounter Summary ---
Author Organization [employer] Address [address] [place] [address] Care Team Providers Care Data Manager Name Role Phone Mckayla Salazar MD Primary Care Provider [phone] Reason for Visit * Reason Onset Date Comments Med Refill 10/19/2022 Encounter Details Date Type Department Care Team ([facility] Contact Info) Description 10/19/2022 Telephone [facility] MEDICINE [address] [place] [address] Mckayla Salazar MD [address] [place] [address] Med Refill Social History Tobacco Use Types [...] encounter Miscellaneous Notes * Telephone Encounter - Noe Zapata - 10/19/2022 9:23 AM EST Tc from daughter requesting med refill Oxycodone 5 documented in this encounter Plan of Treatment Upcoming Encounters Date Type Department Care Team ([facility] Contact Info) Description 03/15/2025 10:30 AM EDT Telemedicine [facility] CHC MED & PEDS [address] [place] [address] Ileana Rodriguez, DORETHA [address] [place] [address] documented as of this encounter Visit Diagnoses Not on filedocumented in this encounter Care Teams Data Manager Relationship Specialty Start Date End Date Mckayla Salazar MD [address] [place] [id number] PCP - General Family Medicine 01/26/20 documented as of this encounter
--- OUTSIDE RECORDS SUMMARY | 2024-12-31 10:26 | XMS_ITS | Clinical Summary ---
Author Organization [facility] Address [address] [place] [address] Phone Care Team Providers Care Gwot Ia/Ilo Intelligence Support Name Role Phone Mckayla Salazar MD Primary Care Provider [phone] Allergies Active Allergy Reactions Criticality Noted Date Comments Aspirin 04/05/2022 Medications donepezil (ARICEPT) 10 MG tablet Take 10 mg by mouth every night Active rosuvastatin (CRESTOR) 40 MG tablet Take 40 mg by mouth 1 (one) time each day Active cyclobenzaprine (FLEXERIL) 5 MG tablet Take 5 mg by mouth 1 (one) time each day Active hydrocortisone 2.5 % cream Apply topically if needed Active levETIRAcetam (KEPPRA) 500 MG tablet Take 750 mg by mouth in the morning and 750 mg in the evening. Active levothyroxine (SYNTHROID, LEVOTHROID) 100 MCG tablet Take 100 mcg by mouth 1 (one) time each day Active lisinopril 40 MG tablet Take 40 mg by mouth 1 (one) time each day Active memantine (NAMENDA) 10 MG tablet Take 10 mg by mouth in the morning and 10 mg in the evening. Active mirtazapine (REMERON) 7.5 MG tablet Take 7.5 mg by mouth every night Active Naloxone HCl 4 MG/0.1ML liquid Administer into affected nostril(s) Active oxyCODONE-aceta minophen (PERCOCET) 5-325 MG per tablet Take 1 tablet by mouth 1 (one) time each day at the same time Active amoxicillin-cla vulanate (AUGMENTIN) 500-125 MG per tablet TAKE 1 TABLET BY MOUTH EVERY 8 HOURS FOR 7 DAYS 2 Active cefuroxime (CEFTIN) 250 MG tablet TAKE 1 TABLET BY MOUTH EVERY DAY FOR 7 DAYS 2 Active Active Problems Problem Noted Date Diagnosed Date Hypertensive disorder 04/05/2022 Resolved Problems Problem Noted Date Diagnosed Date Resolved Date Anxiety 04/05/2022 04/05/2022 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 Depressive disorder 04/05/2022 04/05/20 22 Gastroesophageal reflux disease 04/05/2022 04/05/2022 Hyperlipidemia 04/05/2022 04/05/2022 Seizure 04/05/2022 04/05/2022 Family History Medical History Relation Comments Hypertension Mother Relation Status Comments Mother Social History Tobacco Use Types Packs/Day Years Used Date Smoking Tobacco: Never Smokeless Tobacco: Never Tobacco Cessation:Counseling Given: Not Answered Alcohol Use Standard Drinks/Week Comments Never 0 (1 standard drink = 0.6 oz pur e alcohol) Comments Unknown Sex and Gender Information Value Date Recorded Sex Assigned at Not on file Legal Sex Female 8:12 AM EDT Gender Identity Not on file Sexual Orientation Not on file Last Filed Vital Signs Vital Sign Reading Time Taken Comments Blood Pressure 122/64 04/10/2022 9:07 AM EDT Pulse 68 04/10/2022 9:07 AM EDT Temperature - - Respiratory Rate - - Oxygen Saturation 99% 04/10/2022 9:07 AM EDT Inhaled Oxygen Concentration - - Weight 64.7 kg (142 lb 9.6 oz) 04/10/2022 9:07 A M EDT Height - - Body Mass Index - - Plan of Treatment Health Maintenance Due Date Last Done Comments Pneumococcal Vaccine: 50+ Ye ars (1 of 2 - PCV) 1964 Influenza Vaccine (Season Ended) 2025 Hepatitis B Vaccine Aged Out No longe r eligible based on patient's age to complete this topic Insurance [facility] Care Teams Gwot Ia/Ilo Intelligence Support Relationship Specialty Start Date End Date Mckayla Salazar MD PCP - General Family Medicine 01/16/22
--- OUTSIDE RECORDS SUMMARY | 2024-12-31 10:26 | XMS_ITS | Encounter Summary ---
Author Organization [employer] Address [address] [place] [address] Care Team Providers Care Drive Thru Order Taker Name Role Phone Mckayla Salazar MD Primary Care Provider Reason for Visit * Reason Onset Date Comments Med Refill 09/14/2024 Encounter Details Date Type Department Care Team ([facility] st Contact Info) Description 09/14/2024 Telephone [facility] MEDICINE [address] [place] [address] Mckayla Salazar MD [address] [place] [address] Med Refill Social History Tobacco Use Types [...] encounter Miscellaneous Notes * Telephone Encounter - Kaur Fuller - 09/14/2024 9:17 AM EST TC from pt requesting medication refill. Medications needing refill : oxyCODONE-acetaminophen (Percocet) 5-325 MG tablet To be sent to: [facility]/pharmacy #[id number] documented in this encounter Plan of Treatment Upcoming Encounters Date Type Department Care Team ([facility] st Contact Info) Description 03/15/2025 10:30 AM EDT Telemedicine [facility] MED & PEDS [address] [place] [address] Ileana Rodriguez RN [address] [place] [address] documented as of this encounter Visit Diagnoses Not on filedocumented in this encounter Additional Health Concerns Assessment Noted Time PHQ-9 Depression Total Score: 2 06/18/20 24 9:11 AM EST documented as of this encounter Care Teams Drive Thru Order Taker Relationship Specialty Start Date End Date Mckayla Salazar MD [address] [place] [address] PCP - General Family Medicine 01/26/20 documented as of this encounter
--- OUTSIDE RECORDS SUMMARY | 2024-12-31 10:26 | XMS_ITS | Encounter Summary ---
Author Organization [employer] Address [address] [facility] [place] [address] Care Team Providers Care Glass Crusher Name Role Phone Mckayla Salazar MD Primary Care Provider [phone] Reason for Visit * Reason Onset Date Comments Medication Question 05/04/2024 Encounter Details Date Type Department Care Team ([facility] st Contact Info) Description 05/04/2024 Telephone [facility] MEDICINE [address] [place] [address] Mckayla Salazar MD [address] [place] [address] Medication Question Social History Tobacco Use Types Packs/Day Years [...] * Telephone Encounter - Adriano Bliss - 05/04/2024 2:27 PM EDT Tc from pharmacy calling to request clarification on the frequency of the medication is it one timea day or as needed for pain documented in this encounter Plan of Treatment Upcoming Encounters Date Type Department Care Team ([facility] st Contact Info) Description 03/15/2025 10:30 AM EDT Telemedicine [facility] MED & PEDS [address] [place] [address] Ileana Rodriguez RN 505 [place] [address] documented as of this encounter Visit Diagnoses Not on filedocumented in this encounter Additional Health Concerns Assessment Noted Time PHQ-9 Depression Total Score: 0 06/12/20 23 11:25 AM EDT documented as of this encounter Care Teams Glass Crusher Relationship Specialty Start Date End Date Mckayla Salazar MD [address] [place] [address] PCP - General Family Medicine 01/26/20 documented as of this encounter
--- OUTSIDE RECORDS SUMMARY | 2024-12-31 10:26 | XMS_ITS | Encounter Summary ---
Author Organization [employer] Address [address] [place] [address] Care Team Providers Care Fisher Seal Name Role Phone Mckayla Salazar MD Primary Care Provider [phone] Reason for Visit * Reason Onset Date Comments Med Refill 05/28/2024 Encounter Details Date Type Department Care Team ([facility] st Contact Info) Description 05/28/2024 Telephone [facility] MEDICINE [address] [place] [address] Mckayla Salazar MD [address] [place] [address] Med Refill Social History Tobacco Use Types [...] encounter Miscellaneous Notes * Telephone Encounter - Jackson Arita - 05/28/2024 1:01 PM EDT TC from pt requesting medication refill. Medications needing refill: oxyCODONE-acetaminophen (Percocet) 5-325 MG tablet To be sent to: [facility]/pharmacy #[id number] documented in this encounter Plan of Treatment Upcoming Encounters Date Type Department Care Team ([facility] st Contact Info) Description 03/15/2025 10:30 AM EDT Telemedicine [facility] MED & PEDS [address] [place] [address] Ileana Rodriguez, DORETHA [address] [place] [address] documented as of this encounter Visit Diagnoses Not on filedocumented in this encounter Additional Health Concerns Assessment Noted Time PHQ-9 Depression Total Score: 0 06/12/20 23 11:25 AM EDT documented as of this encounter Care Teams Fisher Seal Relationship Specialty Start Date End Date Mckayla Salazar MD [address] [place] [address] PCP - General Family Medicine 01/26/20 documented as of this encounter
--- OUTSIDE RECORDS SUMMARY | 2024-12-31 10:26 | XMS_ITS | Encounter Summary ---
Author Organization [employer] Address [address] [place] [address] Care Team Providers Care Diversity Intern Name Role Phone Mckayla Salazar MD Primary Care Provider [phone] Reason for Visit * Reason Onset Date Comments Call Back Request 03/31/2024 Encounter Details Date Type Department Care Team ([facility] st Contact Info) Description 03/31/2024 Telephone [facility] MEDICINE [address] [place] [address] Mckayla Salazar MD [address] [place] [phone] Call Back Request Social History Tobacco Use Types Packs/Day Years [...] encounter Miscellaneous Notes * Telephone Encounter - Randi Kilgore - 04/06/2024 1:42 PM EDT Tc from [facility] requesting status. If no answer by Saturday it'll be sent for denial. * Telephone Encounter - dAriano Bliss - 04/01/2024 3:25 PM EDT Tc from [facility] returning call to request the status in regards to the message below * Telephone Encounter - Adriano Bliss - 03/31/2024 1:57 PM EDT Tc from [facility] calling in regards to the CT of the Head without contrast would like to know if any other testing like Lab, depression screening, medication testing and or if the patient has sustain any head trauma that can support the reason why this order was made any questions please kt Petersen at [phone] ext [phone] and fax ATTENTION to [facility] at [phone] documented in this encounter Plan of Treatment Upcoming Encounters Date Type Department Care Team (Late st Contact Info) Description 03/15/2025 10:30 AM EDT Telemedicine [facility] CH[facility] MED & PEDS [address] [place] [address] Ileana Rodriguez, RN [address] [place] [address] documented as of this encounter Visit Diagnoses Not on filedocumented in this encounter Additional Health Concerns Assessment Noted Time PHQ-9 Depression Total Score: 0 06/12/20 23 11:25 AM EDT documented as of this encounter Care Teams Diversity Intern Relationship Specialty Start Date End Date Mckayla Salazar MD [address] [place] [address] PCP - General Family Medicine 01/26/20 documented as of this encounter
[2024-12-31 14:36] LABS: Alanine Aminotransferase 11 U/L (0-31); Albumin Level 4.6 g/dL (3.5-5.0); Anion Gap 15 (12-20); Aspartate Amino Transferase 23 U/L (5-31); Bilirubin Direct 0.2 mg/dL (0.0-0.5); Bilirubin Total 0.5 mg/dL (0.0-1.0); Blood Urea Nitrogen 19 mg/dL (9-16); Carbon Dioxide 28 mmol/L (22-29); Chloride 104 mmol/L (96-108); Cholesterol 118 mg/dL (<200); Estimated Glomerular Filt Rate 38; Glucose Random 86 mg/dL (60-115); HDL Cholesterol 48 mg/dL (>40); LDL Cholesterol Calculated 59 mg/dL (<100); Potassium 4.2 mmol/L (3.3-5.1); Sodium 143 mmol/L (135-145); Total Protein 7.2 g/dL (6.5-8.0); Triglycerides 57 mg/dL (<150)
[2024-12-31 14:42] LABS: Alkaline Phosphatase 63 U/L (39-117)
[2024-12-31 14:48] LABS: TSH reflex Free T4 0.13 uIU/mL (0.32-4.0)
[2024-12-31 15:29] LABS: Free T4 (Free Thyroxine) 1.49 ng/dL (0.71-1.85)
== END 2024-12-31 10:06 | disposition home or self-care (01) ==
LOC: HO.CHCLDS 10:05
PROVIDERS: Visit Provider Student in an Organized Health Care Education/Training Program
DX: I10 Essential (primary) hypertension (principal); E03.9 Hypothyroidism, unspecified
CPT/HCPCS: 36415; 80048; 80061; 80076; 84439; 84443

== ENCOUNTER 2025-03-12 10:13 | Outpatient (AMB) | payer OTHER, SELFPAY ==
[2025-03-12 10:17] VITALS: BMI 29.9
--- NOTE | 2025-03-12 10:17 | A.OFFVIS_ITS ---
Vital Signs 03/12/25 10:17 Height 5 ft 3 in Weight 169 lb BMI 29.9 Intake Visit Reasons: OV-RT knee pain f/u last inj 07/27/24 Intake Note: Silke an 79 year old female who presents today for a follow up of right knee OA, last injection on 07/27/24. Patient reports injection provided relief for about 2 months with no further concerns at this time. Today she would like to repeat the injection. Allergies aspirin (ASPIRIN) Allergy (Unknown, Verified 03/12/25 10:23) hives Medication List - Last Reconciled 03/12/25 by Sabra An PA-C donepezil 10 mg PO DAILY hydralazine mg PO DAILY hydrochlorothiazide 1 tab PO DAILY levetiracetam 1.5 tabs PO BID levothyroxine 1 tab PO DAILY lisinopril 1 tab PO DAILY mirtazapine 7.5 mg PO BEDTIME oxycodone-acetaminophen 5-325 mg 1 tab PO DAILY polyethylene glycol 3350 (Miralax) 17 grams PO DAILY rosuvastatin 1 tab PO BEDTIME trazodone 50 mg PO DAILY HPI HPI OV-RT knee pain f/u last inj 07/27/24: Details: 79-year-old female who has a history of dementia returns to the office today accompanied by her daughter status post right knee injection given on 07/27/2024. The injection was quite helpful for the last couple of months and she has occasional discomfort with daily activities. At this moment the patient is denying any sort of pain in the knee. [facility] Medical History (Updated 02/26/25 @ 07:16 by Eric Jean CMA) Alzheimer dementia Dementia HTN (hypertension) Seizures Surgical History H/O tubal ligation Family History Other No family history of coronary artery disease Social History Housing: Apartment Alcohol intake: never Patient Tobacco Use Status: Never used Tobacco Second Hand Smoke Exposure: No service: No Current occupational status: retired Review of Systems Const All systems reviewed & are unremarkable except as noted in HPI and below Physical Exam Vital Signs: BMI result Body Mass Index 29.9 Extrem Other: Right knee is normal to inspection she has full range of motion without pain or crepitus. Assessment & Plan Assessment & Plan (1) Osteoarthritis of right knee: Code(s): M17.11 - Unilateral primary osteoarthritis, right knee Category: Medical Plan: At this time we will hold off on an injection as the patient is having no pain and is not interested in steroid. If she does develop worsening symptoms and is interested in an injection she can contact our office and we will try to fit her in for an injection otherwise she will follow up as needed. Coding Level of Care Code Est Pt Level 3 (18734) Complex EM visit Add On G2211 Diagnoses Osteoarthritis of right knee M17.11
--- OUTSIDE RECORDS SUMMARY | 2025-03-12 10:24 | XMS_ITS | Clinical Summary ---
Author Organization [facility] Address [address] [place] [address] Phone Care Team Providers Care Bottom Filler Name Role Phone Mckayla Salazar MD Primary Care Provider [phone] Allergies Active Allergy Reactions Criticality Noted Date [...] of 2 - PCV) 1964 Influenza Vaccine (#1) 2025 Hepatitis B Vaccine Aged Out No longe r eligible based on patient's age to complete this topic Insurance [facility] Care Teams Bottom Filler Relationship Specialty Start Date End Date Mckayla Salazar MD PCP - General Family Medicine 01/16/22
--- OUTSIDE RECORDS SUMMARY | 2025-03-12 10:24 | XMS_ITS | Continuity of Care Document ---
Author Name [facility] Address [address] [place] [address] Organization Unknown Address [address] [place] [address] Medications No known medications Problems No known problems
--- OUTSIDE RECORDS SUMMARY | 2025-03-12 10:24 | XMS_ITS | Encounter Summary ---
Author Organization [employer] Address [address] [place] [address] Care Team Providers Care Insurance Claims Supervisor Name Role Phone Mckayla Salazar MD Primary Care Provider [phone] Reason for Visit * Reason Onset Date Comments Med Refill 04/30/2024 Encounter Details Date Type Department Care Team ([facility] st Contact Info) Description 04/30/[address] [facility] MEDICINE [address] [place] [address] Mckayla Salazar MD [address] [place] [address] Med Refill Social History Tobacco Use Types [...] 5-325 MG tablet To be sent to: [facility]/pharmacy #[id number] documented in this encounter Plan of Treatment Upcoming Encounters Date Type Department Care Team ([facility] st Contact Info) Description 03/15/2025 10:30 AM EDT Telemedicine [facility] MED & PEDS [address] [place] [address] Ileana Rodriguez, DORETHA [address] [place] [address] documented as of this encounter Visit Diagnoses Not on filedocumented in this encounter Additional Health Concerns Assessment Noted Time PHQ-9 Depression Total Score: 0 06/12/20 23 11:25 AM EDT documented as of this encounter Care Teams Insurance Claims Supervisor Relationship Specialty Start Date End Date Mckayla Salazar MD [address] [place] [address] PCP - General Family Medicine [facility] documented as of this encounter
== END 2025-03-12 10:32 | disposition home or self-care (01) ==
LOC: HO.HOS 10:14
PROVIDERS: Visit Provider Physician Assistant
DX: M17.11 Unilateral primary osteoarthritis, right knee (principal)
CPT/HCPCS: 99213; G2211

== ENCOUNTER → 2025-03-12 10:13 | Outpatient (BNVA) | payer OTHER, SELFPAY | PROVIDERS: Visit Provider Physician Assistant | DX: M17.11 Unilateral primary osteoarthritis, right knee (principal) | CPT/HCPCS: 99212 ==

== ENCOUNTER 2025-06-24 08:25 | Outpatient (AMB) | payer OTHER, SELFPAY ==
--- NOTE | 2025-06-24 08:30 | A.OFFVIS_ITS ---
Intake Visit Reasons: sooner appt AD Accompanied by: Daughter Allergies aspirin (ASPIRIN) Allergy (Unknown, Verified 06/24/25 08:35) hives Medication List - Last Reconciled 06/24/25 by Vira Madden CNP donepezil 10 mg PO DAILY hydralazine mg PO DAILY hydrochlorothiazide 1 tab PO DAILY levetiracetam 1.5 tabs PO BID levothyroxine 1 tab PO DAILY lisinopril 1 tab PO DAILY oxycodone-acetaminophen 5-325 mg 1 tab PO DAILY polyethylene glycol 3350 (Miralax) 17 grams PO DAILY rosuvastatin 1 tab PO BEDTIME trazodone 50 mg PO DAILY zolpidem 5 mg PO BEDTIME PRN HPI Comments Details: 80-year-old woman with remote history of seizures, none in the last 5+ years, treated with Keppra who is here for worsening dementia since 2019 with behavioral symptoms. She has been on donepezil 10mg since 2021. She has become increasingly more forgetful and repeats herself. She has also become more aggressive and verbally abusive. She paces at night. She may walk out of the house and go to her grandson's. There are times when she wants to leave and go home. Her daughter is her full-time caregiver. She needs help with ADLs, including dressing and bathing, which she resists sometimes. She sometimes confuses her daughter with her sister. She was here with her daughter. She was having more behavioral symptoms. She was fidgety, antsy, restless, agitated, and verbally abusive. She also had some hallucinations, including seeing an aunt that passed and would talk to her. She would leave house and walk down the road, and her daughter would follow behind her. She would not remember doing this. Sleep was also not so good, and she was awake at night pacing around the house. No falls. She was no longer taking mirtazepine. She was alternating between trazodone 50mg and zolpidem 5mg at bedtime for sleep. She was able to fall asleep with zolpidem, but would not stay asleep. She tried risperidone and haloperidol, but both medications made symptoms worse and she had more hallucinations, so medications were stopped. She also tried quetiapine 25mg twice a day, but medication did not help with mood or behavior. [facility] Medical History (Updated 06/24/25 @ 08:34 by Vira Madden CNP) Alzheimer dementia Dementia HTN (hypertension) Seizures Surgical History H/O tubal ligation Family History Other No family history of coronary artery disease Social History Housing: Apartment Alcohol intake: never Patient Tobacco Use Status: Never used Tobacco Second Hand Smoke Exposure: No service: No Current occupational status: retired Review of Systems Const Denies chills, Denies daytime sleepiness, Reports difficulty sleeping, Denies fatigue, Denies fever(s), Denies frequent falls, Denies headache(s), Denies increased appetite, Denies poor appetite, Denies snoring, Denies weakness, Denies weight gain and Denies weight loss Eyes Denies loss of vision ENT Denies vertigo, Denies dizziness, Denies headache(s) and Denies neck pain Card Denies chest pain at rest, Denies chest pain with activity, Denies syncope, Denies leg edema, Denies palpitations, Denies dyspnea and Denies dyspnea on exertion Resp Denies cough, Denies dyspnea, Denies dyspnea on exertion and Denies snoring GI Denies abdominal pain, Denies constipation, Denies heartburn, Denies diarrhea and Denies nausea Denies urinary frequency, Denies urinary incontinence and Denies urinary urgency Musc Denies abnormal gait, Reports back pain, Reports myalgias, Reports arthralgias, Denies neck pain, Denies numbness and Denies tingling Neuro Denies abnormal gait, Denies vertigo, Denies dizziness, Denies syncope, Denies frequent falls, Denies headache(s), Denies lack of coordination, Denies loss of vision, Reports memory loss, Denies numbness, Denies Other visual disturbances, Denies restless legs, Denies seizure-like activity, Denies tingling, Denies paresthesias, Denies tremor(s) and Denies weakness Psych Denies anxiety, Reports depression, Reports auditory hallucinations, Reports memory loss and Reports visual hallucinations Endo Denies fatigue and Denies palpitations Physical Exam Const Other: General Appearance:? normal, in no acute distress. Heart:? S1, S2 normal, no murmurs. Lungs:? clear anteriorly and posteriorly. Musculoskeletal:? normal. Extremities:? no edema. Psych:? alert, as below. Neuro Other: Abnormal Neurological Findings:?MMSE <15/30. She was unable to tell me her age. She was able to tell me her month, but not date or year. She was able to tell me that she was here with her daughter and her name. Mental Status: alert, as below. Cranial Nerves: Pupils are equal, round, and reactive to light. External ocular muscles are intact. Visual dai are full, no ptosis. Face is symmetrical, no facial weakness or droop. Facial sensations are normal. Tongue protrudes in midline. Palate elevates symmetrically. Shoulder shrugging is normal Motor Examination: Normal muscle tone, bulk and strength. No atrophy or fasciculations. No drift of the extended upper extremities. DTR 2+. Plantars are flexor. Sensory Exam: Normal light touch, temperature, pinprick, vibration, and joint- position sensations. Rhomberg sign is absent. Coordination: No ataxia. No titubation. Gait Exam: Within normal limits. Cerebellar Signs: [id number] is okay. Extrapyramidal System: No tremor, rigidity with normal facial expressions. No bradykinesia. No bradyphrenia. Normal arm swing and posture. No propulsion or retropulsion. Speech: Normal. MMSE Level of Consciousness: Alert. Orientation: Does not know correct year, month, date, day and season. Does not know correct city, county and state. Does not know correct location and floor. Registration: Able to register 3 objects. Attention: Serial 7's unable Recall: Able to recall 0 out of 3 objects. Language: Normal spontaneous speech, fluency, repetition, naming, comprehension, reading, and writing. Total Score: <15/30. Assessment & Plan Assessment & Plan (1) Alzheimer dementia: Code(s): G30.9 - Alzheimer's disease, unspecified; F02.80 - Dementia in other diseases classified elsewhere, unspecified severity, without behavioral disturbance, psychotic disturbance, mood disturbance, and anxiety Category: Medical Qualifiers: Alzheimer's disease onset: unspecified onset Dementia severity: unspecified severity Dementia behavioral or psychological symptom: with mood disturbance Qualified Code(s): G30.9 - Alzheimer's disease, unspecified; F02.83 - Dementia in other diseases classified elsewhere, unspecified severity, with mood disturbance Plan: She was here with her daughter with worsening behavioral symptoms including hallucinations, agitation, restlessness, wandering, and difficulty sleeping. She tried quetiapine 25mg twice a day in the past which did not help with mood or behavior. There were no side effects noted with this medication, and could consider trying higher dose in the future. She was then tried on risperidone 0.5mg twice a day which made hallucinations worse. Medication was stopped and she was subsequently tried on haloperidol 0.5mg twice a day with same result, and medication was stopped. Will try lorazepam 0.5mg 1 tablet twice a day as needed for anxiety/behaviors, use/side effects reviewed. They were advised not to take zolpidem or trazodone with this medication. Continue donepezil 10mg 1 tablet at bedtime. (2) Seizures: Code(s): R56.9 - Unspecified convulsions Category: Medical Plan: Continue levetiracetam 500mg 1.5 tablets twice a day. Plan Meds tried: quetiapine, risperidone Medications: New lorazepam 0.5 mg PO BID PRN 60 tabs 0RF anxiety 30 days Coding Level of Care Code Est Pt Level 4 (51204) Diagnoses Alzheimer's dementia with mood disturbance, unspecified dementia severity, unspecified timing of dementia onset G30.9; F02.83 Alzheimer's disease onset: unspecified onset Dementia severity: unspecified severity Dementia behavioral or psychological symptom: with mood disturbance Seizures R56.9
--- OUTSIDE RECORDS SUMMARY | 2025-06-24 08:46 | XMS_ITS | Encounter Summary ---
Author Organization [employer] Address [address] [place] [address] Care Team Providers Care Ornamenter Name Role Phone Mckayla Salazar MD Primary Care Provider [phone] Usman Martinez MD Primary Care Prov ider Encounter Details Date Type Department Care Team (Latest Contact Info) Description 02/24/2019 Abstract [facility] CONVERSIONS Dental, Provider, DDS Social History [...] as of this encounter Plan of Treatment Not on file documented as of this encounter Visit Diagnoses Not on filedocumented in this encounter Care Teams Ornamenter Relationship Specialty Start Date End Date Mckayla Salazar MD [address] [place] [address] PCP - General Family Medicine 01/26/20 06/08/25 Usman Martinez MD [address] [place] [address] PCP - General Internal Medicine 06/09/25 [facility] documented as of this encounter
--- OUTSIDE RECORDS SUMMARY | 2025-06-24 08:46 | XMS_ITS | Clinical Summary ---
Author Organization [facility] Address [address] [place] [address] Phone Care Team Providers Care Muff Winder Name Role Phone Mckayla Salazar MD Primary Care Provider [phone] Allergies Active Allergy Reactions Criticality Noted Date [...] Pneumococcal Vaccine: 50+ Ye ars (1 of 1 - PCV) 1993 Influenza Vaccine (#1) 2025 Hepatitis B Vaccine Aged Out No longe r eligible based on patient's age to complete this topic Insurance [facility] Care Teams Muff Winder Relationship Specialty Start Date End Date Mckayla Salazar MD PCP - General Family Medicine 01/16/22
--- OUTSIDE RECORDS SUMMARY | 2025-06-24 08:46 | XMS_ITS | Encounter Summary ---
Author Organization [employer] Address [address] [place] [address] Care Team Providers Care Plaster Form Maker Name Role Phone Mckayla Salazar MD Primary Care Provider [phone] Usman Martinez MD Primary Care Prov ider Reason for Visit * Reason Onset Date Comments Med Refill 10/19/2022 Encounter Details Date Type Department Care Team (Late st Contact Info) Description 10/19/2022 Telephone [facility] MEDICINE [address] [place] [address] Mckayla Salazar MD [address] [place], [place] [phone] Med Refill Social History Tobacco Use Types [...] documented in this encounter Plan of Treatment Not on file documented as of this encounter Visit Diagnoses Not on filedocumented in this encounter Care Teams Plaster Form Maker Relationship Specialty Start Date End Date Mckayla Salazar MD [address] [place] [address] PCP - General Family Medicine 01/26/20 06/08/25 Usman Martinez MD [address] [place] [address] PCP - General Internal Medicine 06/09/25 [facility] 01/28/25 documented as of this encounter
--- OUTSIDE RECORDS SUMMARY | 2025-06-24 08:46 | XMS_ITS | Encounter Summary ---
Author Organization [employer] Address [address] [address] Care Team Providers Care Curator Of Collections Name Role Phone Mckayla Salazar MD Primary Care Provider [phone] Usman Martinez MD Primary Care Prov ider Reason for Visit * Reason Onset Date Comments Medication Question 05/04/2024 Encounter Details Date Type Department Care Team (Late st Contact Info) Description 05/04/[address] [facility] MEDICINE [address] [place] [address] Mckayla Salazar MD [address] [place] [address] Medication Question Social History Tobacco Use Types [...] the past 12 months, has t he [employer], gas, oil or water company threatened to [...] Time PHQ-9 Depression Total Score: 0 06/12/20 11:25 AM EDT documented as of this encounter Care Teams Curator Of Collections Relationship Specialty Start Date End Date Mckayla Salazar MD [address] [place] [address] PCP - General Family Medicine 01/26/20 06/08/25 Usman Martinez MD [address] [place] [address] PCP - General Internal Medicine 06/09/25 [facility] documented as of this encounter
--- OUTSIDE RECORDS SUMMARY | 2025-06-24 08:46 | XMS_ITS | Encounter Summary ---
Author Organization [employer] Address [address] [place] [address] Care Team Providers Care Laborer Tin Can Name Role Phone Mckayla Salazar MD Primary Care Provider [phone] Usman Martinez MD Primary Care Prov ider Encounter Details Date Type Department Care Team ([facility] st Contact Info) Description 11/27/2023 Orders Only [facility] MED & PEDS [address] [place], [place] [phone] Mckayla Salazar MD [address] [place] [address] Social History Tobacco Use Types Packs/Day Years [...] documented as of this encounter Care Teams Laborer Tin Can Relationship Specialty Start Date End Date Mckayla Salazar MD [address] [place] [address] PCP - General Family Medicine 01/26/20 06/08/25 Usman Martinez MD [address] [place] [address] PCP - General Internal Medicine 06/09/25 [facility] documented as of this encounter
--- OUTSIDE RECORDS SUMMARY | 2025-06-24 08:46 | XMS_ITS | Encounter Summary ---
Author Organization [facility] Address [address] [place] [address] Encounters * CPT with Medical instED at [employer] on 2025-03-07 { reasonForRequest : sore throat , patientReports : , denies :[ Increased work of breathing/labored with or without fever , Unable to speak in full sentences without distress , Discoloration of skin -cyanosis ,"Needs to sleep sitting up, can t catch breath , Shortness of breath in setting of confu kymberly ], chiefComplaints : Sore Throat , pmh : Hypertension,Epilepsy/Seizure Disorder , allergies : Aspirin , otherAllergies :null, painAssessment : , visitOutcome : , additionalComments : Member's daughter calling reporting a sore throat two days ago. Also noted herbottom lip was swollen but that resolved on its own. Denies fever or chills. Denies SOB and cough and chest pain. Denies runny nose and congestion. Hasn't eaten anything out of the ordinary. \n\n79 y.o female complains of Sore Throat\nI provided information on the mobile health provider response time and advised the patient and/or caregiver to monitor reported signs and symptoms. I discussed the warning signs of when to seek emergency care. Dash Winters RN } Was dispatched for a 79 Y/O female complaining of a sore throat. [facility] PT was found sitting on the couch. PT is A/Ox2 at baseline due to dementia. PT family reported on they noticed her bottomlip was swollen, family treated with Benadryl and icepacks. Family reported a few hours later the swelling went down but the PT still complained of a sore throat. PT vitals were obtained, and an assessment was performed. PT JVD, pupils, and skin were normal. PT lung sounds were clear with bilateralchest rise and fall. PT ABD area was soft and non tender. PT has normal CSMs in all her extremities. PT throat was examined and noted the PT throat was red, with slight swelling. PT was tested for covid, flu, and strep. All negative. PT throat was negative for strider. [facility] was contacted, [facility] instructed the PT and her family to stop her lisinopril due to it having side effects that can cause swelling. [facility] also instructed the family to contact the PT's PCP regarding the swelling, and possible medication link to it. PT and family understood, crew cleared ORAL_MEDICATION, EKG, POC_FLU_STREP, COVID_TEST Written by Medical instED on 2025-03-07
--- OUTSIDE RECORDS SUMMARY | 2025-06-24 08:46 | XMS_ITS | Encounter Summary ---
Author Organization [employer] Address [address] [facility] [address], [place] [address] Care Team Providers Care Chlorine Plant Operator Name Role Phone Mckayla Salazar MD Primary Care Provider [phone] Usman Martinez MD Primary Care Prov ider Reason for Visit * Reason Onset Date Comments Call Back Request 03/31/2024 Encounter Details Date Type Department Care Team (Late st Contact Info) Description 03/31/2024 Telephone [facility] 230 [place] [address] Mckayla Salazar MD 505 [place], [place] [phone] Call Back Request Social History Tobacco Use [...] [place] - 04/06/2024 1:42 PM EDT Tc leighann Petersen at [facility] requesting status. If no answer by Saturday it'll be sent for denial. * Telephone Encounter - Adriano Bliss - 04/01/2024 3:25 PM EDT Tc from [facility] at [facility] returning call to request the status in regards to the message below * Telephone Encounter - Adriano Bliss - 03/31/2024 1:57 PM EDT Tc from [facility] from [facility] PA calling in regards to the CT of the Head without contrast would like to know if any other testing like Lab, depression screening, medication testing and or if the patient has sustain any head trauma that can support the reason why this order was made any questions please kt [place] at [phone] ext [phone] and fax ATTENTION to [facility] at [phone] documented in this encounter Plan of Treatment Not on file documented as of this encounter Visit Diagnoses Not on filedocumented in this encounter Additional Health Concerns Assessment Noted Time PHQ-9 Depression Total Score: 0 06/12/20 23 11:25 AM EDT documented as of this encounter Care Teams Chlorine Plant Operator Relationship Specialty Start Date End Date Mckayla Salazar MD [address] [place] [address] PCP - General Family Medicine 01/26/20 06/08/25 Usman Martinez MD [address] [place] [address] PCP - General Internal Medicine 06/09/25 [facility] 01/28/25 documented as of this encounter
--- OUTSIDE RECORDS SUMMARY | 2025-06-24 08:46 | XMS_ITS | Encounter Summary ---
Author Organization [employer] Address [address] [place] [address] Care Team Providers Care Reeler Operator Name Role Phone Mckayla Salazar MD Primary Care Provider [phone] Usman Martinez MD Primary Care Prov ider Encounter Details Date Type Department Care Team (Latest Contact Info) Description 01/31/2021 Abstract [facility] CONVERSIONS Dental, Provider, DDS Social [...] on filedocumented in this encounter Care Teams Reeler Operator Relationship Specialty Start Date End Date Mckayla Salazar MD [address] [place] [address] PCP - General Family Medicine 01/26/20 06/08/25 Usman Martinez MD [address] [place] [address] PCP - General Internal Medicine [facility]09[facility]25 [facility] documented as of this encounter
--- OUTSIDE RECORDS SUMMARY | 2025-06-24 08:46 | XMS_ITS | Clinical Summary ---
Author Organization [employer] Address [address] [place] [address] [address] [place] [address] Care Team Providers Care Archeologist Name Role Phone Usman Martinez MD Primary Care Prov ider Allergies Active Allergy Reactions Criticality Noted Date Comments Acetaminophen 06/18/2024 Aspirin Hives 08/15/2022 Medications Calcium Carbonate-Vitamin D 600-5 MG-MCG tablet Take 1 tablet by mouth. 014 Active famotidine (Pepcid) 20 MG tablet Take 20 mg by mouth. 022 Active memantine (Namenda) 10 MG tablet Take 1 tablet by mouth every 12 (twelve) hours. 022 Active rosuvastatin (Crestor) 40 MG tablet TAKE 1 TABLET BY MOUTH EVERY DAY IN THE MORNING 90 tablet 2 024 Active hydrOXYzine pamoate (Vistaril) 25 MG capsuleIndication s:Primary osteoarthritis involving multiple joints TAKE 1 CAPSULE (25 MG) BY MOUTH 2 TIMES DAILY. 180 capsule 1 025 Active traZODone (Desyrel) 50 MG tablet TAKE 1/2 TABLET (25 MG) BY MOUTH AT BEDTIME. 45 tablet 3 025 Active levothyroxine (Synthroid) 75 MCG tablet Take 1 tablet (75 mcg) by mouth before breakfast. 30 tablet 11 025 2025 Active albuterol 108 (90 Base) MCG/ACT inhaler Inhale 2 puffs. EVERY 4 TO 6 HOURS NEEDED 025 Active bisacodyl (Dulcolax) 10 MG suppository Insert 10 mg into the rectum if needed each day for constipation. Active haloperidol (Haldol) 0.5 MG tablet TAKE 1 TABLET AT BEDTIME AND 1 TABLET DAILY NEEDED DIRECTED Active risperiDONE (RisperDAL) 0.5 MG tablet TAKE 1 TABLET AT BEDTIME X1 WEEK THEN 1 TABLET TWICE A DAY ORALLY Active Senna-Time 8.6 MG tablet Take 1 tablet by mouth if needed at bedtime for constipation. Active QUEtiapine (SEROquel) 25 MG tablet Take 1 tablet by mouth 2 times daily. Active mirtazapine (Remeron) 15 MG tablet Take 1 tablet (15 mg) by mouth at bedtime. 30 tablet 11 025 2025 Active naloxone (Narcan) 4 mg/0.1 mL nasal spray Administer 1 spray (4 mg) into affected nostril(s) if needed for opioid reversal. 2 each 1 Active zolpidem (Ambien) 5 MG tablet Take 1 tablet (5 mg) by mouth if needed at bedtime for sleep. 30 tablet 025 2025 Active GaviLAX 17 GM/SCOOP powder TAKE 17 G BY MOUTH ONCE PER DAY FOR 3 DAYS. 510 g 2 Active oxyCODONE-acetami nophen (Percocet) 5-325 MG tabletIndications :Primary osteoarthritis involving multiple joints Take 1 tablet by mouth if needed each day for severe pain. 30 tablet 025 Active hydrALAZINE (Apresoline) 25 MG tabletIndications :Primary hypertension TAKE 1 TABLET BY MOUTH EVERY DAY IN THE MORNING 90 tablet 3 Active levETIRAcetam (Keppra) 500 MG tablet TAKE 1 AND 1/2 TABLETS BY MOUTH TWICE A DAY 270 tablet 1 025 Active hydrALAZINE (Apresoline) 25 MG tabletIndications :Primary hypertension TAKE 1 TABLET BY MOUTH EVERY DAY IN THE MORNING 90 tablet 3 024 2024 Discontinued levETIRAcetam (Keppra) 500 MG tablet TAKE 1 AND 1/2 TABLETS BY MOUTH TWICE A DAY 270 tablet 1 025 2024 Discontinued oxyCODONE-acetami nophen (Percocet) 5-325 MG tabletIndications :Primary osteoarthritis involving multiple joints Take 1 tablet by mouth if needed each day for severe pain. 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 Depressive disorder 06/18/2024 Seizure ([facility]) 06/18/2024 Acquired hypothyroidism 06/12/2023 06/12/20 Chronic constipation 2018 Mood disorder 2018 Osteopenia determined by x-ray 2018 Primary osteoarthritis involving multiple joints 2018 Scoliosis deformity of spine 2018 Gastroesophageal reflux disease 05/01/2013 06/12/2023 Hyperlipidemia 05/01/2013 06/12/2023 Hypertensive disorder 05/01/2013 06/12/2023 Seizure disorder ([facility]) 05/01/201306/12 Encounters Date Type Department Care Team Description 06/06/2025 Refill [facility] MED & PEDS [address] [place] [address] Mckayla Salazar MD Primary hypertension 05/31/2025 Orders Only [facility] MED & PEDS [address] [facility] [place] [address] Mckayla Salazar MD 05/28/2025 Telephone [facility] MEDICINE [address] [place] [address] Mckayla Salazar MD Medication Question 05/27/2025 Refill [facility] MED & PEDS [address] [facility] [place] [address] Mckayla Salazar MD Primary osteoarthritis involving multiple joints 05/15/2025 Refill [facility] CH[facility] MED & PEDS [address] [facility] [place] [address] Mckayla Salazar MD 05/10/2025 8:45 AM EDT Office Visit [facility] MED & PEDS [address] [place] [address] Mckayla Salazar MD 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 (CMS/HCC) (Primary Dx); Chronic constipation; Insomnia, unspecified type 05/10/2025 Telephone [facility] MED & PEDS [address] [place] [address] Mckayla Salazar MD Durable Medical Equipment 05/10/2025 Travel 05/07/2025 Telephone [facility] MED & PEDS [address] [place], [place] [phone] Mckayla Salazar MD Chart prep 04/22/2025 Refill [facility] MEDICINE [address] [place], [place] [phone] Mckayla Salazar MD Primary osteoarthritis involving multiple joints from Last 3 Months Immunizations Immunization Administration [...] Answer Date Recorded Patient Health Questionnaire-9 Score 12 05/10/2025 Patient Health Questionnaire-9 Score 12 05/10/2025 Last PHQ-9: Questionnaire Data Not on file 0 05/10/2025 Housing Stability Answer Date Recorded What is [...] the past 12 months, has t he [employer], gas, oil or water company threatened to shut off services in your home? No 06/18/2024 Depression Answer Date Recorded Patient Health Questionnaire-2 Score 3 05/10/2025 Internet Access Answer Date Recorded Internet Access Q1 No 01/25/2025 Internet Access Q2 I do not want or need it 01/10 Comments No Sex and Gender Information Value Date Recorded Sex Assigned at Female 06/11/2022 10:14 AM EDT Legal Sex Female 10:14 AM EDT Gender Identity Female 06/11/2022 10:14 AM EDT Sexual Orientation Choose not to disclose 2021 10:14 AM EDT Last Filed Vital Signs Vital Sign Reading Time Taken Comments Blood Pressure 170/82 05/10/2025 8:49 AM EDT Pulse 76 05/10/2025 8:49 AM EDT Temperature 36.7 C (98.1 F) 05/10/2025 8:49 AM EDT Respiratory Rate 12 05/10/2025 8:49 AM EDT Oxygen Saturation 97% 05/10/2025 8:49 AM EDT Inhaled Oxygen Concentration - - Weight 62.1 kg (137 lb) 05/10/2025 8:49 AM EDT Height 154.9 cm (5' 1 ) 05/10/2025 8:49 AM EDT Body Mass Index 25.89 05/10/2025 8:49 AM EDT Plan of Treatment Health Maintenance Due Date Last Done Comments Zoster Vaccines (1 of 2) 1993 RSV Patients and Patients Aged 60 years or older (1 - 1-dose 75+ series) 2018 Pneumococcal Vaccine: 50+ Years (3 of 3 - PCV20 or PCV21) 05/18/2021 05/18/2016, 02/01/2006 COVID-19 Vaccine ( season) 2025 10/27/2020, 09/29/2020 Influenza Vaccine (#1) 2025 , 06/24/2020, 05/18/2016, Additional history exists Depression Monitoring 11/07/2025 05/10/2025, 025 SDOH Screening 01/25/2026 01/25/2025 Tobacco Screening 02/05/2026 02/05/2025 Alcohol/Substance Use Screening 05/10/2026 05/10/2025 Lipid Panel 12/31/2029 12/31/2024, 110 02/2024, 01/04/2022, Additional history exists DTaP/Tdap/Td Vaccines (2 - Td or Tdap) 06/24/2030 06/24/2020 HIB Vaccines Aged Out No longer eligi [...] Associated Diagnosis Comments LIPID PANEL, STANDARD Routine 12/31/2024 10:06 AM EDT Primary hypertension from Last 3 Months or Most Recently Relevant to Health Maintenance Results * Lipid Panel, Standard (12/31/2024 10:06 AM EDT) Triglycerides 57 <150 mg/dL [facility] Comment:Desirable Triglyceri de: less than 150 mg/dLBorderline High Triglyceride 150-199 mg/dLHigh Triglyceride: 200-499 mg/dLVery High Triglyceride: greater than or equal to 5OO mg/dL Cholesterol 118 <200 mg/dL [facility] Comment:Desirable Cholestero l: less than 200 mg/dLBorderline High Cholesterol: 200-239 mg/dLHigh Cholesterol: greater than 239 mg/dL LDL Cholesterol Calculated 59 <100 mg/dL [facility] Comment:Desirable LDL: less than 100 mg/dLNear Optimal/Above Optimal LDL: 110- 129 mg/dLBorderline High LDL: 130-159 mg/dLHigh LDL: 160-189 mg/dLVery High LDL: greater than or equal to 190 mg/dL HDL Cholesterol 48 >40 mg/dL [facility] Comment:Desirable HDL: great er than 40 mg/dL Note: This HDL assay may give artificially low results in patients with liver disease. Blood Venous blood specimen / Unknown 12/31/2024 10:06 AM EDT 12/31/2024 2:06 PM EDT us Mckalya Salazar MD LAB BLOOD ORDERABLES Final Resul t [facility] [address] [place] [address] [phone] from Last 3 Months or Most Recently Relevant to Health Maintenance Insurance [employer] (HMO D-SNP) R[place]IA [place] [id number] Care Teams Archeologist Relationship Specialty Start Date End Date Usman Martinez MD [address] [place] [id number] PCP - General Internal Medicine 06/09/25 [facility]
--- OUTSIDE RECORDS SUMMARY | 2025-06-24 08:46 | XMS_ITS | Encounter Summary ---
Author Organization [employer] Address [address] [place] [address] Care Team Providers Care Beet Flumer Name Role Phone Mckayla Salazar MD Primary Care Provider Usman Martinez MD Primary Care Prov ider Encounter Details Date Type Department Care Team ([facility] st Contact Info) Description 05/31/2025 Orders Only [facility] CH[facility] MED & PEDS [address] [place], [place] [phone] Mckayla Salazar MD [address] [place] [address] Social History Tobacco Use Types Packs/Day Years [...] Assessment Noted Time PHQ-9 Depression Total Score: 12 025 9:27 AM EDT documented as of this encounter Care Teams Beet Flumer Relationship Specialty Start Date End Date Mckayla Salazar MD [address] [place] [address] PCP - General Family Medicine 01/26/20 06/08/25 Usman Martinez MD [address] [place] [address] PCP - General Internal Medicine 06/09/25 [facility] 01/28/25 documented as of this encounter
--- OUTSIDE RECORDS SUMMARY | 2025-06-24 08:46 | XMS_ITS | Encounter Summary ---
Author Organization [employer] Address [address] [address] Care Team Providers Care Cafe Or Restaurant Manager Name Role Phone Mckayla Salazar MD Primary Care Provider [phone] Usman Martinez MD Primary Care Prov ider Reason for Visit * Reason Onset Date Comments Med Refill 02/24/2024 Encounter Details Date Type Department Care Team (Late st Contact Info) Description 02/24/2024 Telephone [facility] MEDICINE [address] [place] [address] Mckayla Salazar MD [address] [place] [address] Med Refill Social History Tobacco Use Types [...] 5-325 MG tablet To be sent to: [facility]/pharmacy #[id number] - [address] documented in this encounter Plan of Treatment Not on file documented as of this encounter Visit Diagnoses Not on filedocumented in this encounter Additional Health Concerns Assessment Noted Time PHQ-9 Depression Total Score: 0 06/12/20 23 11:25 AM EDT documented as of this encounter Care Teams Cafe Or Restaurant Manager Relationship Specialty Start Date End Date Mckayla Salazar MD [address] [place] [address] PCP - General Family Medicine 01/26/20 06/08/25 Usman Martinez MD [address] [place] [address] PCP - General Internal Medicine [facility]09[facility]25 [facility] documented as of this encounter
--- OUTSIDE RECORDS SUMMARY | 2025-06-24 08:46 | XMS_ITS | Encounter Summary ---
Author Organization [employer] Address [address] [facility] [address] [address] Care Team Providers Care Critical Care Nurse Name Role Phone Mckayla Salazar MD Primary Care Provider [phone] Usman Martinez MD Primary Care Prov ider Reason for Visit * Reason Onset Date Comments Med Refill 05/28/2024 Encounter Details Date Type Department Care Team (Late st Contact Info) Description 05/28/2024 Telephone [facility] MEDICINE [address] [place] [address] Mckayla Salazar MD [address] [place] [address] Med Refill Social History Tobacco Use Types [...] 5-325 MG tablet To be sent to: [facility]/pharmacy #[id number] - [address] documented in this encounter Plan of Treatment Not on file documented as of this encounter Visit Diagnoses Not on filedocumented in this encounter Additional Health Concerns Assessment Noted Time PHQ-9 Depression Total Score: 0 06/12/20 23 11:25 AM EDT documented as of this encounter Care Teams Critical Care Nurse Relationship Specialty Start Date End Date Mckayla Salazar MD [address] [place] [id number] PCP - General Family Medicine 01/26/20 06/08/25 Usman Martinez MD [address] [place] [id number] PCP - General Internal Medicine [facility] documented as of this encounter
--- OUTSIDE RECORDS SUMMARY | 2025-06-24 08:46 | XMS_ITS | Encounter Summary ---
Author Organization [employer] Address [address] [address] Care Team Providers Care Applications Development Analyst Name Role Phone Mckayla Salazar MD Primary Care Provider [phone] Usman Martinez MD Primary Care Prov ider Reason for Visit * Reason Onset Date Comments Med Refill 01/14/2025 Encounter Details Date Type Department Care Team (Late st Contact Info) Description 01/14/2025 Telephone [facility] MEDICINE [address] [place] [address] Mckayla Salazar MD [address] [place] [address] Med Refill Social History Tobacco Use Types [...] encounter Miscellaneous Notes * Telephone Encounter - Brittany Benítez - 01/14/2025 8:36 AM EDT TC from pt requesting medication refill. Medications needing refill : oxyCODONE-acetaminophen (Percocet) 5-325 MG tablet To be sent to: [facility]/pharmacy #[id number] documented in this encounter Plan of Treatment Not on file documented as of this encounter Visit Diagnoses Not on filedocumented in this encounter Additional Health Concerns Assessment Noted Time PHQ-9 Depression Total Score: 2 06/18/20 24 9:11 AM EST documented as of this encounter Care Teams Applications Development Analyst Relationship Specialty Start Date End Date Mckayla Salazar MD [address] [place] [phone] PCP - General Family Medicine 01/26/20 06/08/25 Usman Martinez MD [address] [place] [id number] PCP - General Internal Medicine 06/09[facility]25 [facility] documented as of this encounter
--- OUTSIDE RECORDS SUMMARY | 2025-06-24 08:46 | XMS_ITS | Encounter Summary ---
Author Organization [employer] Address [address] [facility] 7[place] [address] Care Team Providers Care Community Development Planner Name Role Phone Mckayla Salazar MD Primary Care Provider Usman Martinez MD Primary Care Prov ider Reason for Visit * Reason Onset Date Comments Hospital Follow-up 01/25/2025 Encounter Details Date Type Department Care Team (Late st Contact Info) Description 01/25/2025 Telephone [facility] MEDICINE [address] [place] [address] Mckayla Salazar MD [address] [place], [place] [id number] Hospital Follow-up Social History Tobacco Use Types Packs/Day Years [...] not want or need it 01/10 Comments Unknown Sex and Gender Information Value Date Recorded Sex Assigned at Female 06/11/2022 10:14 AM EDT Legal Sex Female 10:14 AM EDT Gender Identity Female 06/11/2022 10:14 AM EDT Sexual Orientation Choose not to disclose 2021 10:14 AM EDT documented as of this encounter Miscellaneous Notes * Telephone Encounter - Brittany Benítez - 01/25/2025 10:51 AM EDT Tc from pt requesting a HDF appt. [place] [facility] Date of admission: 01/20 Discharge date: 01/25 Diagnosed: Constipation *Send message to [facility] documented in this encounter Plan of Treatment Not on file documented as of this encounter Visit Diagnoses Not on filedocumented in this encounter Additional Health Concerns Assessment Noted Time PHQ-9 Depression Total Score: 2 06/18/20 24 9:11 AM EST documented as of this encounter Care Teams Community Development Planner Relationship Specialty Start Date End Date Mckayla Salazar MD [address] [place] [phone] PCP - General Family Medicine 6/16/20 10/28/25 Usman Martinez MD [address] [place] [phone] PCP - General Internal Medicine 06/09/25 [facility] 01/28/25 documented as of this encounter
--- OUTSIDE RECORDS SUMMARY | 2025-06-24 08:46 | XMS_ITS | Encounter Summary ---
Author Organization [employer] Address [address] [place] [address] Care Team Providers Care Coal Cutting Machine Operator Name Role Phone Mckayla Salazar MD Primary Care Provider [phone] Usman Martinez MD Primary Care Prov ider Reason for Visit * Reason Onset Date Comments Med Refill 09/14/2024 Encounter Details Date Type Department Care Team (Late st Contact Info) Description 09/14/2024 Telephone [facility] MEDICINE [address] [place] [address] Mckayla Salazar MD [address] [place] [address] Med Refill Social History Tobacco Use Types [...] 5-325 MG tablet To be sent to: [facility]/pharmacy #[id number] documented in this encounter Plan of Treatment Not on file documented as of this encounter Visit Diagnoses Not on filedocumented in this encounter Additional Health Concerns Assessment Noted Time PHQ-9 Depression Total Score: 2 06/18/20 24 9:11 AM EST documented as of this encounter Care Teams Coal Cutting Machine Operator Relationship Specialty Start Date End Date Mckayla Salazar MD [address] [place] [phone] PCP - General Family Medicine 01/26/20 06/08/25 Usman Martinez MD [address] [place] [phone] PCP - General Internal Medicine 06/09/25 [facility] 01/28/25 documented as of this encounter
--- OUTSIDE RECORDS SUMMARY | 2025-06-24 08:46 | XMS_ITS | Encounter Summary ---
Author Organization [employer] Address [address] [address] Care Team Providers Care Business Intelligence Architect Name Role Phone Mckayla Salazar MD Primary Care Provider [phone] Usman Martinez MD Primary Care Prov ider Reason for Visit * Reason Onset Date Comments Med Refill 04/30/2024 Encounter Details Date Type Department Care Team (Late st Contact Info) Description 04/30/2024 Telephone [facility] MEDICINE [address] [place] [address] Mckayla Salazar MD [address] [place] [address] Med Refill Social History Tobacco Use Types [...] 5-325 MG tablet To be sent to: [facility]/pharmacy #[id number] documented in this encounter Plan of Treatment Not on file documented as of this encounter Visit Diagnoses Not on filedocumented in this encounter Additional Health Concerns Assessment Noted Time PHQ-9 Depression Total Score: 0 06/12/20 23 11:25 AM EDT documented as of this encounter Care Teams Business Intelligence Architect Relationship Specialty Start Date End Date Mckayla Salazar MD [address] [place] [phone] PCP - General Family Medicine 01/26/20 06/08/25 Usman Martinez MD [address] [place] [phone] PCP - General Internal Medicine 06[facility]09/25 [facility] documented as of this encounter
== END 2025-06-24 08:54 | disposition home or self-care (01) ==
LOC: HO.HSM 08:25
PROVIDERS: Visit Provider Registered Nurse
DX: G30.9 Alzheimer's disease, unspecified (principal); F02.83 Dementia in other diseases classified elsewhere, unspecified severity, with mood disturbance; R56.9 Unspecified convulsions
CPT/HCPCS: 99214

== ENCOUNTER → 2025-06-24 08:25 | Outpatient (BNVA) | payer OTHER, SELFPAY | PROVIDERS: Visit Provider Registered Nurse | DX: G30.9 Alzheimer's disease, unspecified (principal); F02.83 Dementia in other diseases classified elsewhere, unspecified severity, with mood disturbance; R56.9 Unspecified convulsions | CPT/HCPCS: 99212 ==